=== PATIENT | female | born 1940 | race Caucasian/White ===

== ENCOUNTER → 2017-11-07 06:40 | Outpatient (CLI) | payer MEDICARE, SELFPAY ==
[2017-11-07 07:32] LABS: Absolute Lymphocyte Count 1.11 X10^3/ul (0.83-4.51); Basophil# 0.04 X10^3/uL; Eosinophil# 0.27 X10^3/uL; Eosinophils% 6.8 % (0-5); Hematocrit 41.2 % (37-47); Hemoglobin 13.4 g/dl (12.0-15.0); Lymphocyte # 1.11 X10^3/ul (4.0); Lymphocyte % 27.9 % (19-41); Mean Corp Hgb Conc 32.5 g/gl (32-36); Mean Corpuscular Volume 98.3 fL (81-99); Mean Platelet Vol. 11.3 fl (6.2-12.0); Monocyte# 0.56 X10^3/uL; Monocyte% 14.1 % (0-10); Neutrophil % 50.2 % (47-70); Platelet Count 157 K/mm3 (150-450); RBC Distribution Width CV 14.4 % (11.6-14.6); RBC Distribution Width SD 50.4 fl (35.1-43.9); Red Blood Count 4.19 M/mm3 (4.2-5.4)
[2017-11-07 07:34] LABS: POSITIVE COUNT NO; POSITIVE DIFFERENTIAL NO; POSITIVE MORPHOLOGY NO
[2017-11-07 07:46] LABS: Cholesterol 160 mg/dL (200); High Density Lipoprotein 43 mg/dL; Triglycerides 281 mg/dL; Very Low Density Lipoprotein 56 mg/dL (5-40)
--- NOTE | 2017-11-07 11:00 | ECHOD_ITS ---
Reason For Study: SOB Procedure This was a 2D Doppler, Color Flow transthoracic echocardiogram. Exam performed in department. Left Ventricle Normal LV size. Left ventricular systolic function is normal. The estimated ejection fraction is 60 %. No regional wall motion abnormalities noted. Right Ventricle Normal RV size. Normal systolic function. Atria Normal left atrium. Normal right atrium. Mitral Valve Normal mitral valve. Mild (1+) eccentric mitral valve insufficiency. Tricuspid Valve Normal tricuspid valve. Mild (1+) tricuspid valve insufficiency. Pulmonary artery systolic pressure is 33 mmHg. Aortic Valve Normal aortic valve. Trisinus/trileaflet aortic valve. Mild (1+) eccentric aortic valve insufficiency. Pulmonic Valve Normal pulmonic valve. Great Vessels Normal aortic root. The pulmonary artery is normal size. Normal inferior vena cava. Pericardium/Pleural No pericardial effusion. MMode/2D Measurements & Calculations LVIDd: 3.7 cm IVSd: 1.1 cm Ao root diam: 2.7 cm LVIDs: 2.2 cm LVPWd: 1.0 cm LA dimension: 3.8 cm RVDd: 2.6 cm FS: 41.0 % LAV(MOD-bp): 46.6 ml LA A4 area: 15.3 cm2 RA A4 area: 12.1 cm2 LAV(MOD-bp) Indexed: 26.6 ml/m2 LAV(MOD-sp2): 48.0 ml LAV(MOD-sp4): 41.5 ml Doppler Measurements & Calculations MV E max ajith: 76.4 cm/sec Ao V2 max: 156.5 cm/sec AI max ajith: 508.5 cm/sec MV A max ajith: 74.3 cm/sec Ao max P.8 mmHg AI max P.5 mmHg MV E/A: 1.0 AI dec slope: 315.8 cm/sec2 AI P1/2t: 471.7 msec LV V1 max: 111.7 cm/sec PA V2 max: 78.2 cm/sec TR max ajith: 261.2 cm/sec LV V1 max P.0 mmHg TR max P.3 mmHg Interpretation Summary Normal LV size. Left ventricular systolic function is normal. The estimated ejection fraction is 60 %. Mild (1+) eccentric mitral valve insufficiency. Mild (1+) tricuspid valve insufficiency. Ordering Physician: Celestine Pereyra Referring Physician: Raghav Torres M.D. Performed By: Monique Kenny RDCS
--- NOTE | 2017-11-07 11:00 | STRESSREP ---
Stress Test Report Exercise myocardial perfusion stress test. 77-year-old lady with a history of chest pain. Stress protocol: Resting EKG demonstrates normal sinus rhythm with a rate of 63 bpm. Normal intervals noted. The resting blood pressure is 142/78 mmHg. The patient exercised according to the regular Alvaro protocol for total duration of 6 minutes completing stage II of the Alvaro protocol. The maximum heart rate attained was 122 bpm which was 84% of the maximum predicted heart rate the maximum workload attained was 7 metabolic equivalents. The patient was noted to be in sinus rhythm throughout. At rest there were no ST or T-wave changes noted to suggest ischemia and at peak exercise no ST or T-wave changes were noted suggest ischemia. No chest pain was noted the test was terminated due to shortness of breath and fatigue. The resting blood pressure was 142/78 with a peak blood pressure 164 102. Myocardial perfusion protocol. 4 mCi of technetium 99m sestamibi was injected at rest. The patient exercised for 6 minutes attaining 7 metabolic equivalents and at peak exercise 32.1 mCi of technetium 99m sestamibi was injected. Stress images were obtained. Stress and rest images were reconstructed and compared in the short axis vertical long and horizontal long axis. Gated images were also obtained. Perfusion SPECT analysis: Review of the stress images demonstrate normal uptake of tracer noted in all areas of the myocardium. The resting images similarly demonstrate normal uptake of tracer noted in all areas of the myocardium. No areas of reversibility are noted suggest ischemia. No previous infarct is noted. Gated SPECT analysis: The gated ejection fraction is noted to be 76%. Conclusion: Normal exercise myocardial perfusion stress test at a moderate workload. Preserved ejection fraction.
== END ==
PROVIDERS: Family Provider Internal Medicine; PCP Internal Medicine; Visit Provider Internal Medicine Cardiovascular Disease
DX: E78.00 Pure hypercholesterolemia, unspecified (principal); E78.5 Hyperlipidemia, unspecified; R94.31 Abnormal electrocardiogram [ECG] [EKG]; R06.09 Other forms of dyspnea
CPT/HCPCS: 36415; 78452; 80061; 85025; 93017; 93306; A9500; A4216

== ENCOUNTER → 2018-01-04 09:24 | Outpatient (CLI) | payer MEDICARE, SELFPAY ==
--- NOTE | 2018-01-04 09:27 | BI_ITS ---
MAMMOGRAPHY - BILATERAL SCREENING REASON FOR EXAM: Female, 77 years old. Routine annual screening examination. PERTINENT HISTORY: Non-contributory. TECHNIQUE: Digital bilateral breast eddy (3D mammographic acquisition) in the CC and MLO projections. 2-D mediolateral oblique (MLO) and craniocaudad (CC) views of both breasts were obtained. CAD: Full Field Digital Mammography with Computer Added Detection was performed. COMPARISON: Comparison is made with prior study dated December 14, 2016 and October 27, 2015. FINDINGS: Breast Composition: The breasts are heterogeneously dense, which may obscure small masses. There are no dominant masses or suspicious calcifications. No other significant abnormalities are identified. There has been no significant change since the prior study. BI/SCREENING MAMM (CAD), BILAT IMPRESSION: Stable bilateral screening mammogram. Yearly follow-up mammogram recommended. (A) ASSESSMENT CATEGORY: BIRADS Category 1: Negative. A letter regarding these results will be sent to the patient by the facility within 30 days. Approximately 10% of breast cancers are not detected by mammography. A normal mammogram should not delay biopsy of a clinically suspicious abnormality. [id number] Electronically Signed: Jey Bustillo MD at 11:04 EDT Tel [phone], Service support ,
== END ==
PROVIDERS: Family Provider Internal Medicine; PCP Internal Medicine; Visit Provider Obstetrics & Gynecology
DX: Z12.31 Encounter for screening mammogram for malignant neoplasm of breast (principal)
CPT/HCPCS: 77063; 77067

== ENCOUNTER → 2018-01-13 06:53 | Outpatient (CLI) | payer MEDICARE, SELFPAY ==
--- NOTE | 2018-01-13 14:55 | PFTCOMP ---
COMPLETE PULMONARY FUNCTION TEST INTERPRETATION Brief HPI: Patient is a 77 year old female, currently under the care of Tanya Meneses, who presents to [facility] for complete pulmonary function tests secondary to diagnosis of COPD. Respiratory therapist reports good effort and reproducible results. Interpretation: Forced expiration spirometry shows a mild large airways obstructive ventilatory defect with an FEV1 of 96% predicted. There is a significant bronchodilator response in FEV1 by ATS criteria. Spirograms are of good quality and plateau slowly, indicating slowly emptying areas of the lungs. The respiratory flow volume loop shows a normal pattern. Lung volumes by body plethysmography show a decreased total lung capacity at 4.16 L, 84% predicted. All other lung volumes are within normal limits. Diffusion capacity by carbon monoxide is normal at 72% predicted. The airway resistance is normal. No previous pulmonary function tests were available for review. Impression: Fully reversible mild large airways obstructive ventilatory defect consistent with the diagnosis of asthma.
--- NOTE | 2018-01-13 14:58 | PFTCOMP_ITS ---
COMPLETE PULMONARY FUNCTION TEST INTERPRETATION Brief HPI: Patient is a 77 year old female, currently under the care of Tanya Meneses, who presents to [facility] for complete pulmonary function tests secondary to diagnosis of COPD. Respiratory therapist reports good effort and reproducible results. Interpretation: Forced expiration spirometry shows a mild large airways obstructive ventilatory defect with an FEV1 of 96% predicted. There is a significant bronchodilator response in FEV1 by ATS criteria. Spirograms are of good quality and plateau slowly, indicating slowly emptying areas of the lungs. The respiratory flow volume loop shows a normal pattern. Lung volumes by body plethysmography show a decreased total lung capacity at 4.16 L, 84% predicted. All other lung volumes are within normal limits. Diffusion capacity by carbon monoxide is normal at 72% predicted. The airway resistance is normal. No previous pulmonary function tests were available for review. Impression: Fully reversible mild large airways obstructive ventilatory defect consistent with the diagnosis of asthma.
== END ==
PROVIDERS: Family Provider Internal Medicine; PCP Internal Medicine; Visit Provider Physician Assistant Medical
DX: R06.09 Other forms of dyspnea (principal)
CPT/HCPCS: 94060; 94726; 94729

== ENCOUNTER 2018-03-09 03:08 | Emergency (ER) | payer MEDICARE, SELFPAY ==
[2018-03-09 03:09] VITALS: BP 148/73; PULSE 68; RESP 16; TEMP 36.8; O2SAT 98; BMI 29.5
--- NOTE | 2018-03-09 03:28 | CT_ITS ---
STUDY: CT CERVICAL SPINE WITHOUT CONTRAST REASON FOR EXAM: Female, 77 years old. Fall RADIATION DOSAGE (If Supplied By Facility): CTDIvol = ( 18.54 ) mGy, DLP = ( 362.18 ) mGycm TECHNIQUE: High resolution transaxial imaging was performed without contrast material. Sagittal and coronal images were reconstructed. Individualized dose optimization techniques were used for this CT. COMPARISON: None FINDINGS: Normal craniovertebral junction. Degenerative changes are present involving the atlantoaxial axial articulation. Normal odontoid process. Normal cervical lordosis. Normal vertebral bodies and posterior osseous elements. Diffuse degenerative disease is present. No acute fractures or dislocations are seen. Carotid calcifications. CT/Spine Cervical without Contras IMPRESSION: No acute osseous injury is evident. Comment: MRI is more sensitive than CT in detecting cord injury, ligament injury, and epidural hematoma. If there is continued clinical concern for any of these entities, MRI correlation should be considered if possible. Electronically Signed: Primitivo Ruiz MD at 4:07 EDT Tel , Service support ,
--- NOTE | 2018-03-09 03:28 | RAD_ITS ---
STUDY: X-RAY - RIGHT RADIUS AND ULNA REASON FOR EXAM: Female, 77 years old. Fall TECHNIQUE: 2 view(s) of the forearm. COMPARISON: None. FINDINGS: Comminuted intra-articular fracture of the distal radius. Fracture of the ulnar styloid. Fracture of the distal ulnar diaphysis. Soft tissue swelling. RAD/Forearm 2 Views IMPRESSION: Comminuted intra-articular fracture of the distal radius. Fracture of the ulnar styloid. Fracture of the distal ulnar diaphysis. Electronically Signed: Primitivo Ruiz MD at 4:31 EDT Tel , Service support ,
--- NOTE | 2018-03-09 03:28 | CT_ITS ---
STUDY: CT BRAIN WITHOUT CONTRAST REASON FOR EXAM: Female, 77 years old. Fall RADIATION DOSAGE (If Supplied By Facility): CTDIvol = ( 44.99 ) mGy, DLP = ( 779.24 ) mGycm TECHNIQUE: Transaxial CT imaging of the brain was performed without administration of intravenous contrast material. Individualized dose optimization techniques were used for this CT. COMPARISON: None. FINDINGS: Normal soft tissue structures. There is hyperostosis frontalis internus. Normal size ventricles and extra-axial spaces for the patient's age. There are areas of decreased attenuation within the white matter tracts of the supratentorial brain, consistent with microvascular disease changes. There are small punctate calcifications of the basal ganglia which are seen in the aging brain as a normal variant. Normal brainstem. Normal cerebellum. There is no intracranial hemorrhage. There are no findings of an acute ischemic infarction. Normal visualized paranasal sinuses. CT/Brain/Head without Contrast IMPRESSION: No fracture or hemorrhage. Electronically Signed: Primitivo Ruiz MD at 4:06 EDT Tel , Service support ,
--- NOTE | 2018-03-09 03:28 | RAD_ITS ---
STUDY: X-RAY - RIGHT WRIST REASON FOR EXAM: Female, 77 years old. Fall TECHNIQUE: 3 view(s) of the wrist were obtained. COMPARISON: None. FINDINGS: Comminuted intra-articular fracture of the distal radius. Fracture of the ulnar styloid. Fracture of the distal ulnar diaphysis. Carpal rows are normally aligned. Soft tissue swelling. RAD/Wrist min 3 Views IMPRESSION: Comminuted intra-articular fracture of the distal radius. Fracture of the ulnar styloid. Fracture of the distal ulnar diaphysis. Electronically Signed: Primitivo Ruiz MD at 4:38 EDT Tel , Service support ,
--- NOTE | 2018-03-09 03:29 | RAD_ITS ---
STUDY: X-RAY - LEFT FOOT CLINICAL: Female, 77 years old. Fall TECHNIQUE: 3 view(s) of the foot. COMPARISON: None. FINDINGS: Normal talus, calcaneus, and tarsal bones. Normal visualized subtalar, talonavicular, calcaneocuboid, tarsal and tarsometatarsal articulations. Normal metatarsi. There is degenerative arthrosis of the metatarsophalangeal joint of the hallux . Normal tibial and fibular sesamoid bones. Normal interphalangeal joint of the great toe. Normal phalanges of the great toe. Normal second through fifth metatarsophalangeal joints. Normal interphalangeal joints and phalanges of the lesser toes. The soft tissue structures are unremarkable. RAD/Foot min 3 Views IMPRESSION: No acute osseous injury is evident. Electronically Signed: Primitivo Ruiz MD at 4:32 EDT Tel , Service support ,
--- NOTE | 2018-03-09 03:30 | ED.VISSUMM ---
- ER Visit Summary Date of Service: 03/09/18 Chief Complaint: Fall History of Present Illness: The patient is a 77 F who presents with injuries after a fall. Patient states that she got up from bed and thought she was going to the bathroom, but she thinks she was dreaming because she thought she was in a store. She walked to a staircase and fell down the stairs. She and are unsure if she fell down the entire flight, but it is 11 steps long. Patient is complaining of right wrist pain, left hand pain, left foot pain, and right ankle pain. She denies any headache, head injury, neck pain, or acute back pain. She states she has chronic back pain due to fibromyalgia and rheumatoid arthritis. She denies chest pain, shortness of breath, abdominal pain, lightheadedness, dizziness. She states she had no difficulty ambulating. She takes 2 baby aspirin daily. Physical Examination: Vital signs: afebrile, hemodynamically stable, no hypoxia on room air General: well nourished, well developed, in no distress Skin: warm, dry, no rash, no pallor HEENT: normocephalic and atraumatic; no scalp contusions, hematomas, lacerations noted, no maxillofacial trauma noted. PERRL, EOMI, moist mucous membranes Cardiovascular: regular rate and rhythm without murmurs, no peripheral edema, 2+ pulses all distal extremities. No chest wall tenderness. Respiratory: No increased work of breathing, lungs are clear to auscultation bilaterally, no rales, rhonchi or wheezing Abdominal: Abdomen is soft, nontender with normoactive bowel sounds, no guarding or rebound, no masses Back: No midline tenderness deformities or step-offs. MSK: This is stable and nontender. No hip pain, no pain with logroll of the hips. Flexion and extension of knees intact. Obvious deformity to the right wrist. Radial pulse intact. Patient able to wiggle fingers. Distal sensation intact. Contusion over the third MCP joint on the hand. Patient has motor, sensation and pulses intact. Ecchymosis to the left second toe without deformity. Swelling and abrasion to the right lateral malleolus. Patient has full flexion, extension inversion and eversion of bilateral ankles. DP pulses are 2+ and symmetric. Neuro: Awake and alert, oriented ?4. No facial droop, sensation and motor function intact and symmetric Test Results: Clinical Impression(s) from Imaging Studies Brain CT 03/09/18 03:28 IMPRESSION: No fracture or hemorrhage. Electronically Signed: Primitivo Ruiz MD at 4:06 EDT Tel , Service support , Cervical Spine CT 03/09/18 03:28 IMPRESSION: No acute osseous injury is evident. Comment: MRI is more sensitive than CT in detecting cord injury, ligament injury, and epidural hematoma. If there is continued clinical concern for any of these entities, MRI correlation should be considered if possible. Electronically Signed: Primitivo Ruiz MD at 4:07 EDT Tel , Service support , Forearm X-Ray 03/09/18 03:28 IMPRESSION: Comminuted intra-articular fracture of the distal radius. Fracture of the ulnar styloid. Fracture of the distal ulnar diaphysis. Electronically Signed: Primitivo Ruiz MD at 4:31 EDT Tel , Service support , Wrist X-Ray 03/09/18 03:28 IMPRESSION: Comminuted intra-articular fracture of the distal radius. Fracture of the ulnar styloid. Fracture of the distal ulnar diaphysis. Electronically Signed: Primitivo Ruiz MD at 4:38 EDT Tel , Service support , Foot X-Ray 03/09/18 03:29 IMPRESSION: No acute osseous injury is evident. Electronically Signed: Primitivo Ruiz MD at 4:32 EDT Tel , Service support , Emergency Department Course and Treatment: Patient was given [place] for pain. Given her age and mechanism of injury, head CT and C-spine were performed. This showed no intracranial hemorrhage or fractures. X-rays were performed of the injured extremities. Patient has a comminuted distal radius fracture with intra-articular involvement and a distal ulnar diaphysis fracture. She declined the x-rays of the right ankle and the left hand, as she stated that she did not think they were fractured. A sugar tong splint was placed to immobilize the right distal forearm fracture. Hematoma block was placed with 12 cc of 1% lidocaine and good anesthesia was achieved. Gentle traction was placed to straighten out the fracture. It was then splinted. Afterwards patient had good cap refill, was able to wiggle her fingers and had sensation intact. Patient will follow up with her orthopedic doctor within the week. She was given a prescription for [place]. She was discharged home. Treatment Plan: [] Disposition: [] Impression: Right distal forearm fracture This note was generated with [employer] dictation software. It may contain incorrect words, spelling, and punctuation that were not noted in review of the chart prior to signing ED Disposition - Plan for ED Patient: Disposition: Home or Assisted Living Chief Complaint: Fall Instructions: ED Fx Forearm Radius Ulna No Redu Requ Prescriptions: Hydrocodone/Acetaminophen [[place] 5-325 Tablet] 1 - 2 ea PO 4X/DAY PRN PRN 5 Days #20 tab PRN Reason: Pain Referrals: Tio Granda DO [STAFF PHYSICIAN] - 3-5 Days Raghav Torres MD [Primary Care Provider] - Additional Instructions: Please keep your splint dry. Call today to make an appointment with the orthopedic doctor within 1 week. Use the [place] as needed for pain. You may also use Tylenol or ibuprofen for mild to moderate pain. If you have any severe pain not controlled with the medication, loss of sensation in your hand, change in color in your fingers, or any other concerns about the splint or arm, please return immediately to the emergency department for another evaluation.
--- NOTE | 2018-03-09 03:35 | ED.DCSUM_ITS ---
- ER Visit Summary Date of Service: 03/09/18 Chief Complaint: Fall History of Present Illness: The patient is a 77 F who presents with injuries after a fall. Patient states that she got up from bed and thought she was going to the bathroom, but she thinks she was dreaming because she thought she was in a store. She walked to a staircase and fell down the stairs. She and are unsure if she fell down the entire flight, but it is 11 steps long. Patient is complaining of right wrist pain, left hand pain, left foot pain, and right ankle pain. She denies any headache, head injury, neck pain, or acute back pain. She states she has chronic back pain due to fibromyalgia and rheumatoid arthritis. She denies chest pain, shortness of breath, abdominal pain, lightheadedness, dizziness. She states she had no difficulty ambulating. She takes 2 baby aspirin daily. Physical Examination: Vital signs: afebrile, hemodynamically stable, no hypoxia on room air General: well nourished, well developed, in no distress Skin: warm, dry, no rash, no pallor HEENT: normocephalic and atraumatic; no scalp contusions, hematomas, lacerations noted, no maxillofacial trauma noted. PERRL, EOMI, moist mucous membranes Cardiovascular: regular rate and rhythm without murmurs, no peripheral edema, 2 + pulses all distal extremities. No chest wall tenderness. Respiratory: No increased work of breathing, lungs are clear to auscultation bilaterally, no rales, rhonchi or wheezing Abdominal: Abdomen is soft, nontender with normoactive bowel sounds, no guarding or rebound, no masses Back: No midline tenderness deformities or step-offs. MSK: This is stable and nontender. No hip pain, no pain with logroll of the hips. Flexion and extension of knees intact. Obvious deformity to the right wrist. Radial pulse intact. Patient able to wiggle fingers. Distal sensation intact. Contusion over the third MCP joint on the hand. Patient has motor, sensation and pulses intact. Ecchymosis to the left second toe without deformity. Swelling and abrasion to the right lateral malleolus. Patient has full flexion, extension inversion and eversion of bilateral ankles. DP pulses are 2+ and symmetric. Neuro: Awake and alert, oriented ?4. No facial droop, sensation and motor function intact and symmetric Test Results: Clinical Impression(s) from Imaging Studies Brain CT 03/09/18 03:28 IMPRESSION: No fracture or hemorrhage. Electronically Signed: Primitivo Ruiz MD at 4:06 EDT Tel , Service support , Cervical Spine CT 03/09/18 03:28 IMPRESSION: No acute osseous injury is evident. Comment: MRI is more sensitive than CT in detecting cord injury, ligament injury, and epidural hematoma. If there is continued clinical concern for any of these entities, MRI correlation should be considered if possible. Electronically Signed: Primitivo Ruiz MD at 4:07 EDT Tel , Service support , Forearm X-Ray 03/09/18 03:28 IMPRESSION: Comminuted intra-articular fracture of the distal radius. Fracture of the ulnar styloid. Fracture of the distal ulnar diaphysis. Electronically Signed: Primitivo Ruiz MD at 4:31 EDT Tel , Service support , Wrist X-Ray 03/09/18 03:28 IMPRESSION: Comminuted intra-articular fracture of the distal radius. Fracture of the ulnar styloid. Fracture of the distal ulnar diaphysis. Electronically Signed: Primitivo Ruiz MD at 4:38 EDT Tel , Service support , Foot X-Ray 03/09/18 03:29 IMPRESSION: No acute osseous injury is evident. Electronically Signed: Primitivo Ruiz MD at 4:32 EDT Tel , Service support , Emergency Department Course and Treatment: Patient was given [place] for pain. Given her age and mechanism of injury, head CT and C-spine were performed. This showed no intracranial hemorrhage or fractures. X-rays were performed of the injured extremities. Patient has a comminuted distal radius fracture with intra-articular involvement and a distal ulnar diaphysis fracture. She declined the x-rays of the right ankle and the left hand, as she stated that she did not think they were fractured. A sugar tong splint was placed to immobilize the right distal forearm fracture. Hematoma block was placed with 12 cc of 1% lidocaine and good anesthesia was achieved. Gentle traction was placed to straighten out the fracture. It was then splinted. Afterwards patient had good cap refill, was able to wiggle her fingers and had sensation intact. Patient will follow up with her orthopedic doctor within the week. She was given a prescription for [place]. She was discharged home. Treatment Plan: [] Disposition: [] Impression: Right distal forearm fracture This note was generated with [employer] dictation software. It may contain incorrect words, spelling, and punctuation that were not noted in review of the chart prior to signing ED Disposition - Plan for ED Patient: Disposition: Home or Assisted Living Chief Complaint: Fall Instructions: ED Fx Forearm Radius Ulna No Redu Requ Prescriptions: Hydrocodone/Acetaminophen [[place] 5-325 Tablet] 1 - 2 ea PO 4X/DAY PRN PRN 5 Days #20 tab PRN Reason: Pain Referrals: Tio Granda DO [STAFF PHYSICIAN] - 3-5 Days Raghav Torres MD [Primary Care Provider] - Additional Instructions: Please keep your splint dry. Call today to make an appointment with the orthopedic doctor within 1 week. Use the [place] as needed for pain. You may also use Tylenol or ibuprofen for mild to moderate pain. If you have any severe pain not controlled with the medication, loss of sensation in your hand, change in color in your fingers, or any other concerns about the splint or arm, please return immediately to the emergency department for another evaluation.
[2018-03-09] MEDS: HYDROcodone Bitartrate/Apap 5/325 Tablet PO (04:10)
--- NOTE | 2018-03-09 06:53 | DCINST.ED_ITS ---
ED Disposition - Plan for ED Patient: Disposition: Home or Assisted Living Chief Complaint: Fall Instructions: ED Fx Forearm Radius Ulna No Redu Requ Prescriptions: Hydrocodone/Acetaminophen [[place] 5-325 Tablet] 1 - 2 ea PO 4X/DAY PRN PRN 5 Days #20 tab PRN Reason: Pain Referrals: Raghav Torres MD [Primary Care Provider] - Tio Granda DO [STAFF PHYSICIAN] - 3-5 Days Additional Instructions: Please keep your splint dry. Call today to make an appointment with the orthopedic doctor within 1 week. Use the [place] as needed for pain. You may also use Tylenol or ibuprofen for mild to moderate pain. If you have any severe pain not controlled with the medication, loss of sensation in your hand, change in color in your fingers, or any other concerns about the splint or arm, please return immediately to the emergency department for another evaluation.
[2018-03-09 07:22] VITALS: BP 116/50; PULSE 68; RESP 18; O2SAT 97
== END 2018-03-09 07:23 | disposition home or self-care (01) ==
PROVIDERS: Emergency Provider Emergency Medicine; Family Provider Internal Medicine; PCP Internal Medicine
DX: S52.571A Other intraarticular fracture of lower end of right radius, initial encounter for closed fracture (principal); S52.611A Displaced fracture of right ulna styloid process, initial encounter for closed fracture; S93.505A Unspecified sprain of left lesser toe(s), initial encounter; W10.8XXA Fall (on) (from) other stairs and steps, initial encounter; Y93.01 Activity, walking, marching and hiking; Y92.009 Unspecified place in unspecified non-institutional (private) residence as the place of occurrence of the external cause; M79.672 Pain in left foot; M79.7 Fibromyalgia; M45.9 Ankylosing spondylitis of unspecified sites in spine; I10 Essential (primary) hypertension; J45.909 Unspecified asthma, uncomplicated; K58.9 Irritable bowel syndrome, unspecified; G89.29 Other chronic pain; Z79.82 Long term (current) use of aspirin; Z79.899 Other long term (current) drug therapy
CPT/HCPCS: 25605; 70450; 72125; 73090; 73110; 73630; 99283

== ENCOUNTER → 2018-03-14 15:20 | Outpatient (CLI) | payer MEDICARE, SELFPAY ==
[2018-03-14 17:56] LABS: Hematocrit 37.3 % (37-47); Hemoglobin 11.8 g/dl (12.0-15.0); Mean Corp Hgb Conc 31.6 g/gl (32-36); Mean Corpuscular Hgb 31.1 pg (27.0-32.0); Mean Corpuscular Volume 98.2 fL (81-99); Mean Platelet Vol. 11.2 fl (6.2-12.0); Platelet Count 174 K/mm3 (150-450); RBC Distribution Width CV 14.4 % (11.6-14.6); RBC Distribution Width SD 51.6 fl (35.1-43.9); White Blood Count 4.6 K/mm3 (4.4-11.0)
[2018-03-14 18:04] LABS: Scan Indicated on CBC? Y/N NO
[2018-03-14 18:30] LABS: Anion Gap 7 (5-15); BUN 26 mg/dL (7-18); BUN/Creat Ratio 40.8 RATIO (10-20); Calcium,Total 8.8 mg/dL (8.5-10.1); Chloride 109 mmol/L (98-107); Creatinine, Serum 0.64 mg/dL (0.55-1.02); EST Glomerular Filtration Rate 96 mL/min (>60); Est Glom Filt Rate - Afr Amer 117 mL/min (>60); Glucose 137 mg/dL (74-106); Sodium Level 144 mmol/L (136-145)
== END ==
PROVIDERS: Family Provider Internal Medicine; PCP Internal Medicine; Visit Provider Physician Assistant
DX: Z01.818 Encounter for other preprocedural examination (principal)
CPT/HCPCS: 36415; 80048; 85027

== ENCOUNTER 2018-04-10 14:37 | Emergency (ER) | payer MEDICARE, SELFPAY ==
[2018-04-10 14:38] VITALS: BP 154/55; PULSE 69; RESP 16; TEMP 36.6; O2SAT 95; BMI 26.0
--- NOTE | 2018-04-10 15:49 | ED.DCSUM_ITS ---
- ER Visit Summary Date of Service: 04/10/18 Chief Complaint: Right leg pain/sciatica History of Present Illness: The patient is a 78 F who presents with right leg pain. She states she has a history of sciatica. This pains involving her for 2 weeks. It sharp. She has been taking Tylenol arthritis with hydrocodone but this is not helping. She also took a prednisone pack but it did not help. She does have some back pain intermittently. No injuries or falls. Physical Examination: Vital signs reviewed. HEENT exam unremarkable. Right leg exam reveals tenderness to the posterior hip, thigh and leg. No erythema. No swelling. She has full range of motion with pain. Neurologic exam is normal. Test Results: None performed Emergency Department Course and Treatment: Patient was given morphine and Kenalog. She feels much better. She will be discharged with a prednisone pack to help with her pain. She will continue her [place] at home. Treatment Plan: [] Disposition: Discharge Impression: Sciatica This note was generated with [employer] dictation software. It may contain incorrect words, spelling, and punctuation that were not noted in review of the chart prior to signing ED Disposition - Plan for ED Patient: Chief Complaint: Lower Extremity Injury Referrals: Raghav Torres MD [Primary Care Provider] -
[2018-04-10] MEDS: Triamcinolone Acetonide 40 MG/ML Vial IM (16:17)
[2018-04-10] MEDS: morphine 8 MG/ML Syringe SC (16:17)
--- NOTE | 2018-04-10 16:43 | ED.DEP ---
ED Disposition - Plan for ED Patient: Disposition: Home or Assisted Living Chief Complaint: Lower Extremity Injury Instructions: ED Sciatica Prescriptions: Prednisone [Deltasone] 40 mg PO DAILY #14 tab Referrals: Raghav Torres MD [Primary Care Provider] -
== END 2018-04-10 16:52 | disposition home or self-care (01) ==
PROVIDERS: Emergency Provider Emergency Medicine; Family Provider Internal Medicine; PCP Internal Medicine
DX: M54.31 Sciatica, right side (principal); I10 Essential (primary) hypertension; M79.7 Fibromyalgia; M06.9 Rheumatoid arthritis, unspecified; Z79.82 Long term (current) use of aspirin; Z79.899 Other long term (current) drug therapy
CPT/HCPCS: 96372; 99282

== ENCOUNTER 2018-06-13 09:30 | Outpatient (RCR) | payer MEDICARE, SELFPAY ==
--- NOTE | 2018-04-17 17:24 | HP.OTEVAL ---
Patient's Visit Information PIERRE MELENDEZ is a 78 year old F, referred to Occupational Therapy by Thong Marrero DO, with a diagnosis of Radial fx and Ulnar displacement. Date of Evaluation: 04/17/18 Occupational Therapist: Mirta Holland - Subjective Subjective: Pt., Leida, arrived and noted fell down 14 steps at home ending in radiaus fx. She noted fall was in mid February around . Pins removed last and was placed in wrist cock up follow ing removal of cast. Noted injury occured while sleep walking. - Pain Right Wrist 0 Pain Intensity Range: 0, 3, 4 - Objective Objective/Observation: Ink still over R wrist, protecting. Limited ROM, strength, and movement of R wrist and hand. Sensation appears intact. Decreased dexterity and fx pinch patterns. Muscle atrophy present t/o R forearm and hand. Slight bowing of Ulna noted. - ROM Forearm: supination R 0-46, L 0-83 Wrist: flex R 0-33, L 0-81; ext R 0-16, L 0-50 MP: WFL PIP: WFL DIP: WFL - Strength Physician Assistant Psychiatry: R 5, L 40 Lateral Pinch: R 6, L 12 Tripod Pinch: R 5, L 12 Tip-to-Tip Pinch: R 4, L 10 - Sensation Sensation Comments: Sensation WFL. WIll be monitored for changes. - In-Hand Manipulation Finger to Palm Translation: Severe - Right, Mild - Left Palm to Finger Translation: Moderate - Right, Mild - Left Shift: Mild - Right, Normal - Left Rotation: Mild - Right, Normal - Left - DASH-Disabilities of Arm, Shoulder& Hand DASH Sum: 107 - Goals Goal:: Leida to increased R meat carver strength by 20 lbs to increased strength need to manipulate self care items by d/c. - Rehabilitation General Assessment: Leida arrived for OT evaluation on this date. OT will focus on R wrist and hand s/p inartic fx low end radius with displacement of R ulnar styloid. Both fx closed healing with pins added for stability and removed Tuesday. She will be out of town starting tuesday for next 5 days. PT order in process for additional therapy on sciatica. OT to focus on R wrist and hand to promote increased ROM, strength, as well as increased fx use fo dominant R hand for ADl/IADls. Rehabilitation Potential: Good - Anticipated Interventions Anticipated Interventions: A/AAROM/PROM, Strengthening, Scar Care, Wound Care, Modalities, Orthoses, Joint Protection/Energy Conservation, Ergonomic Education, Fine Motor Coord/Adriano, ADL Training, Caregiver Training, Home Program - Visit Plan Frequency: 2x /Week Duration: 4-6 Weeks TEXT: Thank you for the opportunity to evaluate your patient. For Medicare and Medicare HMO plans, please review the plan of care and approve it. It will need to be FAXED BACK to us at [phone] for Medicare purposes. Please let me know if there are questions or concerns regarding this plan of care. Physician Signature: Date:
--- NOTE | 2018-04-18 08:10 | HP.OTEVAL_ITS ---
Patient's Visit Information PIERRE MELENDEZ is a 78 year old F, referred to Occupational Therapy by Thong Marrero DO, with a diagnosis of Radial fx and Ulnar displacement. Date of Evaluation: 04/17/18 Occupational Therapist: Mirta Holland - Subjective Subjective: Pt., Leida, arrived and noted fell down 14 steps at home ending in radius fx. She noted fall was in mid -February around . Pins removed last Tuesday and was placed in wrist cock up following removal of cast. Noted injury occurred while sleep walking. - Pain Right Wrist 0 Pain Intensity Range: 0, 3, 4 - Objective Objective/Observation: Surgical ink still over R wrist, protecting. Limited ROM , strength, and movement of R wrist and hand. Sensation appears intact. Decreased dexterity and fx pinch patterns. Muscle atrophy present t/o R forearm and hand. Slight bowing of Ulna noted. - ROM Forearm: supination R 0-46, L 0-83 Wrist: flex R 0-33, L 0-81; ext R 0-16, L 0-50 MP: WFL PIP: WFL DIP: WFL - Strength Meeting/Event Planner: R 5, L 40 Lateral Pinch: R 6, L 12 Tripod Pinch: R 5, L 12 Tip-to-Tip Pinch: R 4, L 10 - Sensation Sensation Comments: Sensation WFL. WIll be monitored for changes. - In-Hand Manipulation Finger to Palm Translation: Severe - Right, Mild - Left Palm to Finger Translation: Moderate - Right, Mild - Left Shift: Mild - Right, Normal - Left Rotation: Mild - Right, Normal - Left - DASH-Disabilities of Arm, Shoulder& Hand DASH Sum: 107 - Goals Goal:: Leida to increased R terminal manager strength by 20 lbs to increased strength need to manipulate self care items by d/c. Goal:: Leida to increase R wrist ROM by 5-10 degrees to promote increased mobility of R wrist in pain free range for ADL/IADls by d/c. Goal:: Leida to have no more 1/10 pain with ADL/IADls 4/5 trials 80% of the time to promote increased participation and ability to return to PLOF. Goal:: Leida to be mod I to complete joint protection techniques and body mechanics to promote increased alignment of body 4/5 trials 80% of the time by d /c. Goal:: Leida to be (I) to complete all fx movements needed for self-care and other function tasks e.g. supination to get change 2/3 trials 75% of the time to promote increased ROM and ability to return to PLOF by d/c. - Rehabilitation General Assessment: Leida arrived for OT evaluation on this date. OT will focus on R wrist and hand s/p inartic fx of low end of radius with displacement of R ulnar styloid. Both fx closed healing with pins added for stability and removed Tuesday. She will be out of town starting Tuesday for next 5 days. PT order in process for additional therapy on sciatica. OT to focus on R wrist and hand to promote increased ROM, strength, as well as increased fx use of dominant R hand for ADl/IADls. Rehabilitation Potential: Good - Anticipated Interventions Anticipated Interventions: A/AAROM/PROM, Strengthening, Scar Care, Wound Care, Modalities, Orthoses, Joint Protection/Energy Conservation, Ergonomic Education , Fine Motor Coord/Adriano, ADL Training, Caregiver Training, Home Program - Visit Plan Frequency: 2x /Week Duration: 4-6 Weeks General Plan: Leida to receive OT services for R wrist and hand ROM, strength, and dexterity need for self-care and fx activities to promote returning to PLOF. PT order to follow as well a evaluation to treat sciatica. TEXT: Thank you for the opportunity to evaluate your patient. For Medicare and Medicare HMO plans, please review the plan of care and approve it. It will need to be FAXED BACK to us at [phone] for Medicare purposes. Please let me know if there are questions or concerns regarding this plan of care. Physician Signature: Date:
--- NOTE | 2018-04-26 11:29 | HP.PTEVAL_ITS ---
Patient's Visit Information PIERRE MELENDEZ is a 78 year old F referred to Physical Therapy by Thong Marrero DO with a diagnosis of R sided sciatica. Date of Evaluation: 04/24/18 Physical Therapist: Thong Fernandes - Visit Plan Frequency: 2x /Week Duration: 4 Weeks Plan: Start with US to R piriformis and SI region, HS stretching, light lumbar ROM as tolerated, trial extension first. If not tolerating stay with neutral spine strenghtening. - Subjective Subjective: Pt. is here today for her initial evaluation with diagnosis of R sided sciatica. Pt. reports falling ~6 weeks ago while sleeping walking. She ended up falling down a flight of stairs. She ended up having a R radius and ulnar fx. She had an ORIF on her R arm, but she is now experiencing increased R sided lumbar spine and leg pain. Pt. reports increased pain with sitting, walking, standing, lifting, bending, twisting. Pt. reports having mild relief with medications, but not much. Pt. reports having xrays rulingout fracture. Pt. did have injection at hospital which helped, but she contiunes to have increased pain. Pt. is hopeful to reduce symptoms in order to get back to all ADLs without limitations. - Pain R side of lumbar spine Pain Intensity (Out of 10): 6 Pain Intensity Range: 6, 10 - Objective POSTURE: Pt. has slight flexed posture, slight lateral lean to R side with slight hip lateral shift to L (away from pain). Pt. has normal iliac crest heights. PALPATION: Pt. has increasd tenderness to palpation of R piriformis, R lumbar erector spinea. Pt. has no tendernes throughout distal RLE. NEUROLOGICAL: all intact without issues. Pt. is able to rise on heels and toes without muscle weakness. ROM: LUMABR SPINE: flexion- full increase NW, extension mod loss tightness no radiating pain. SB min loss bilat increase NW , rotation mod loss bilat incerase nW. MMT- core strength- poor. RLE- ankle 5/ 5 throughout; knee- ext 4/5, flexion 4/5; hip - flexion 4-/5 increase NW, abd 4/ 5 NE, ext 4/5 NE. LLE- ankle 5/5 throughout; knee- ext 4/5, flexion 4/5; hip- flexion 4-/5 increase NE, abd 4/5 NE, ext 4/5 NE. GAIT: Pt. ambulates without AD, but has flexed posture, slight L atleral shift with trunk correction. No anatalgic pattern noted. STAIRS: Step to pattern with heavy use of uEs on HR. - Goals Goal 1:: Pt. to be I with HEP. Goal Time Frame: 4-6 Weeks Goal 2:: Pt. to have increased lumbar ROM without increase in symtoms by 25%. Goal Time Frame: 4-6 Weeks Goal 3:: Pt. to have 0-2/10 pain in R side of lumbar spine and RLE while at rest allowing for increased quality life. Goal Time Frame: 4-6 Weeks Goal 4:: Pt. to have increased core strength by 1/2 grade to reduce stress applied to lumabr spine. Goal Time Frame: 4-6 Weeks Goal 5:: Pt. to ambulate unlimited distances without increase in symptoms. Goal Time Frame: 4-6 Weeks - Rehabilitation Potential Physical Therapy Diagnosis: Pt. has signs and symptoms consistent with sciatica effecting her RLE. Pt. has decreased lumbar ROM with increased symptoms with flexion and ext at end ranges. Pt. would benefit from PT to increase lumbar ROM , increase core stability and decerased symptoms. Rehabilitation Potential: Fair - Anticipated Interventions Patient/Client Instruction: Educate patient on: Condition, Plan of Care, Risk Factors, Benefits of Fitness Program For the Purpose of:: To improve health and function, To foster healthy habits, To improve decision making, To facilitate caregiver knowledge, To improve self management, To prevent re-injury, To improve ability to perform tasks related to life management, To improve tolerance to ADL's Therapeutic Exercise to Include: Strength training, Power training, Postural training, Flexibilty training, Passive ROM, Active ROM, Dynamic Lumbar Stabilization, Sadie Exercises For the Purpose of:: To decrease pain, To increase ROM, To improve nutrient delivery to tissue, To increase oxygenation perfusion, To improve muscle performance and motor function, To improve performance and independence with ADL 's, To improve ability of physical actions for home/community/work/leisure, To improve gait and locomotor functions, To improve health of tissue, To decrease soft tissue restriction, To increase flexibility/ROM, To improve balance Manual Therapy Techniques to Include: Mobilization, Passive ROM, Functional dry needling, Soft tissue mobilization For the Purpose of:: To decrease pain, To increase ROM, To improve nutrient delivery to tissue, To increase oxygenation perfusion, To improve muscle performance and motor function, To improve ability to perform ADL's Cryotherapy (ice pack, ice massage): Yes Thermo therapy (hot pack): Yes Ultrasound (thermal/non thermal): Yes Pelvic traction supine: Yes For the Purpose of:: To decrease pain, To increase ROM, To improve nutrient delivery to tissue, To increase oxygenation perfusion Thank you for the opportunity to evaluate your patient. For Medicare and Medicare HMO plans, please review the plan of care and approve it. It will need to be FAXED BACK to us at [phone] for Medicare purposes. Please let me know if there are questions or concerns regarding this plan of care. Physician Signature: Date:
--- NOTE | 2018-05-10 10:50 | HP.PTREVAL ---
Thong Marrero, DO, It has been my pleasure to treat PIERRE MELENDEZ over the last 6 visits for R sided sciatica. Please see the progress note below for an update on the physical therapy plan of care! Subjective: Pt. continues to report minimal changes with PT. Pt. is to follow up with physician tomorrow. Pt. reports having 8/10 R leg and hip pain this date. Objective/Function: Pt. reports mild relief with PT this date. Pt. is to follow up with physician tomorrow. Pt. reports overall minimal changes in pain. She continues to reports increased pain with all positions including: lying, sitting, standing, walking. Pt. reports no positions of comfort and only relief is with pain medications. Plan Plan: Pt. to follow up with physician in order to determine best course of action as this point in time. Goals Goal 1:: Pt. to be I with HEP. Goal Time Frame: 4-6 Weeks Goal Progress: Progressing Goal 2:: Pt. to have increased lumbar ROM without increase in symtoms by 25%. Goal Time Frame: 4-6 Weeks Goal Progress: Not Progressing Goal 3:: Pt. to have 0-2/10 pain in R side of lumbar spine and RLE while at rest allowing for increased quality life. Goal Time Frame: 2-4 Weeks Goal Progress: Not Progressing Goal 4:: Pt. to have increased core strength by 1/2 grade to reduce stress applied to lumabr spine. Goal Time Frame: 4-6 Weeks Goal Progress: Progressing Goal 5:: Pt. to ambulate unlimited distances without increase in symptoms. Goal Time Frame: 4-6 Weeks Goal Progress: Not Progressing Anticipated Interventions Patient/Client Instruction: Educate patient on: Condition, Plan of Care, Risk Factors, Benefits of Fitness Program For the Purpose of:: To improve health and function, To foster healthy habits, To improve decision making, To facilitate caregiver knowledge, To improve self management, To prevent re-injury, To improve ability to perform tasks related to life management, To improve tolerance to ADL's Therapeutic Exercise to Include: Strength training, Power training, Postural training, Flexibilty training, Passive ROM, Active ROM, Dynamic Lumbar Stabilization, Sadie Exercises For the Purpose of:: To decrease pain, To increase ROM, To improve nutrient delivery to tissue, To increase oxygenation perfusion, To improve muscle performance and motor function, To improve performance and independence with ADL's, To improve ability of physical actions for home/community/work/leisure, To improve gait and locomotor functions, To improve health of tissue, To decrease soft tissue restriction, To increase flexibility/ROM, To improve balance Manual Therapy Techniques to Include: Mobilization, Passive ROM, Functional dry needling, Soft tissue mobilization For the Purpose of:: To decrease pain, To increase ROM, To improve nutrient delivery to tissue, To increase oxygenation perfusion, To improve muscle performance and motor function, To improve ability to perform ADL's Cryotherapy (ice pack, ice massage): Yes Thermo therapy (hot pack): Yes Ultrasound (thermal/non thermal): Yes Pelvic traction supine: Yes For the Purpose of:: To decrease pain, To increase ROM, To improve nutrient delivery to tissue, To increase oxygenation perfusion Please do not hesitate to contact me at [phone] by phone or if you have questions or concerns regarding this new plan of care! Sincerely, Thong Fernandes
--- NOTE | 2018-05-10 11:45 | HP.OTCOM ---
OT Communication Note 05/10/[address] Thong Marrero, Leida has been seen for a total of 7 OT visits. She reports variable pain per sessions and feels she has made approximately 20% improvement. Subjective improvement related to DASH answers she has indicated increased participation in ADls/IADLs from score of 107 or 60-79% disability to 67 of 20-39% disability. New measurements taken today. She has progressed in most measurements since time of initial evaluation of R wrist. ROM measurements are as follows: wrist flexion R 0-50, L WFL, ext R 0-33, L WFL; radial deviation R extremely limited, L WFL; ulnar dev R 0-19, L WFL; supination R 0-72, L WFL. Strength assessment completed on this date and measurements are as follows: robotic maintenance technician R 20, L 45; lateral pinch R 8, L 12; tripod R 7, L 14 lbs; tip pinch R 5, L 9 lbs. Nine hole pegboard test completed to measurement FMC and dexterity on R 23.93, L 23.22 s. She has progressed in all measurements since initial evaluation. She will continue with POC fo 2x weekly visits until end of April to promote increased strength of R wrist and progressively decrease use of splint. Additional intrinsic and resistive exercises for hand and wrist have been provided and she is to start to complete 1x10 reps, 1x daily, as tolerated and will progress to promote increasing strength and endurance to return to PLOF. Sincerely, Mirta Holland, OTR/L Contact Information
--- NOTE | 2018-05-10 11:49 | HP.OTCOM_ITS ---
OT Communication Note 05/10/[address] Thong Marrero, Leida has been seen for a total of 7 OT visits. She reports variable pain per sessions and feels she has made approximately 20% improvement. Subjective improvement related to DASH answers she has indicated increased participation in ADls/IADLs from score of 107 or 60-79% disability to 67 of 20-39% disability. New measurements taken today. She has progressed in most measurements since time of initial evaluation of R wrist. ROM measurements are as follows: wrist flexion R 0-50, L WFL, ext R 0-33, L WFL; radial deviation R extremely limited, L WFL; ulnar dev R 0-19, L WFL; supination R 0-72, L WFL. Strength assessment completed on this date and measurements are as follows: file conversion operator R 20, L 45; lateral pinch R 8, L 12; tripod R 7, L 14 lbs; tip pinch R 5, L 9 lbs. Nine hole pegboard test completed to measurement FMC and dexterity on R 23.93, L 23.22 s. She has progressed in all measurements since initial evaluation. She will continue with POC fo 2x weekly visits until end of April to promote increased strength of R wrist and progressively decrease use of splint. Additional intrinsic and resistive exercises for hand and wrist have been provided and she is to start to complete 1x10 reps, 1x daily, as tolerated and will progress to promote increasing strength and endurance to return to PLOF. Sincerely, Mirta Holland, OTR/L Contact Information
--- NOTE | 2018-05-22 10:03 | OTREVAL_ITS ---
Thong Marrero, DO, It has been my pleasure to treat PIERRE MELENDEZ over the last 10 visits for Radial fx and Ulnar displacement. Please see the progress note below for an update on the occupational therapy plan of care! Subjective: Pt. arrived with brace on. When seeing Dr. Marrero last time around May 11 noted wrist still healing and needed to continue brace. Objective/Function: Measurements completed today. Notes has been completing HEP. Measurements about same or little decreased since May 10 measurements. Measurements are as follows; ROM wrist flexion R 0-50, L 0-85; ext R 0-44, L 0- 71; supination R 0-68, L 0-90; strength bar waiter/waitress R 16, L 39; lateral R 8, L 10; tripod R 56, L 11; pincer R 6, L 9 lbs. 9 hole pegboard test completed R 20.61, L 20.58 s. She has progressed since initial evaluation. Bones still healing at this time and continued strength to be completed. She has progressed towards goals. Plan Frequency: 1-2x /Week Duration: 3 Weeks Plan: continue POC for 1-2x 3 weeks to address continued strengthening and stability of wrist within pain tolerance. Will be progressing to BTE machine as part of progressive strengthening program as well as adding additional exercises for BUE to promote general strengthening of BUE. She has progressed since initial evaluation, but some strength measurements are decreased upon todays performance as opposed to May 10. She is to continue HEp to promote increased bar waiter/waitress and pinch with R dominant hand at this time. Goals - Goals Goal:: Leida to increased R bar waiter/waitress strength by 20-30 lbs to increased strength need to manipulate self care items by d/c. Goal:: Leida to increase R wrist ROM by 5-10 degrees to promote increased mobility of R wrist in pain free range for ADL/IADls by d/c. Goal:: Leida to have no more 1/10 pain with ADL/IADls 4/5 trials 80% of the time to promote increased participation and ability to return to PLOF. Goal:: Leida to be mod I to complete joint protection techniques and body mechanics to promote increased alignment of body 4/5 trials 80% of the time by d /c. Goal:: Leida to be (I) to complete all fx movements needed for self-care and other function tasks e.g. supination to get change 2/3 trials 75% of the time to promote increased ROM and ability to return to PLOF by d/c. Anticipated Interventions Anticipated Interventions: A/AAROM/PROM, Strengthening, Scar Care, Wound Care, Modalities, Orthoses, Joint Protection/Energy Conservation, Ergonomic Education , Fine Motor Coord/Adriano, ADL Training, Caregiver Training, Home Program Please do not hesitate to contact me at [phone] by phone or Fax: if you have questions or concerns regarding this new plan of care! Sincerely, Mirta Holland
--- NOTE | 2018-06-05 10:00 | HP.OTCOM_ITS ---
OT Communication Note 06/05/[address] Thong Marrero, DO Measurements completed from 05/22/18 from re-evaluation: Measurements about same or little decreased since May 10 measurements. Measurements are as follows; ROM wrist flexion R 0-50, L 0-85; ext R 0-44, L 0-71; supination R 0-68 , L 0-90; strength churn driller R 16, L 39; lateral R 8, L 10; tripod R 6, L 11; pincer R 6, L 9 lbs. 9 hole pegboard test completed R 20.61, L 20.58 s. She has progressed since initial evaluation. Bones still healing at this time and continued strength to be completed. She has progressed towards goals. Completed additional measurements today, 06/04/18, and measurements are as follows : ROM for wrist flexion R 0-45, L 0-69; ext R 0-41, L 0-60; supination R 0-75, L WFL. Strength: churn driller R 23, L 36; lateral R 9, L 12; three jaw R 8, L 12. 9 hole R 22.40 s, and L 21.08s. Progressing with strength measurements. Leida is still in splint most of day as Dr. Marrero had instructed due to bone not being fully healed. Exercises have been completed within pain tolerance. She is progressing with therapy and has 2x more scheduled appointments. If all is progressing well after 2x more appointments she will be d/c'd. Sincerely, Mirta Holland, OTR/L Contact Information
--- NOTE | 2018-06-13 14:59 | HP.OTDCSUM_ITS ---
HP - OT D/C Summary It has been my pleasure to treat PIERRE MELENDEZ under orders from Thong Marrero DO, for the diagnosis of Radial fx and Ulnar displacement for a total of 16 visit(s). Please see the following information for a summary of their discharge status. - Overall Improvement % Improvement: 85 - Objective Objective/Function: Completed measurements. She continues to progress. Dorsal swelling remains over R wrist. Measurements are as follows: ROM for wrist flexion R 0-51, L WFL, R ext 0-41, L WFL, supination R 0-70, L 0-93. Completed strength assessment and is as follows: R (average of 2 trials) 26 , L 39; lateral R 10, L 12; tripod R 9, L 12; pincer R 7, L 10 lbs. Completed 9 hole pegboard test and results is as follows: R 20.22 s, L 21.16 s. She has progressed towards and meant some goals. She will be d/c'd. - Goals Patient Goals: Regain Mobility, Regain Strength, Decrease Pain, Return to Work, Improve Fine Motor Skills, Use Hand/Wrist/Arm Normally Again, Sleep Better, Increase ROM, Be More Independent in ADLS, Resume Former Household Responsibilities (Cooking,Cleaning,Yard, etc.), Resume Hobbies Other: Hip is waking her up at night. 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 Goal:: Leida to increase R wrist ROM by 5-10 degrees to promote increased mobility of R wrist in pain free range for ADL/IADls by d/c. Goal:: Leida to have no more 1/10 pain with ADL/IADls 4/5 trials 80% of the time to promote increased participation and ability to return to PLOF. Goal:: Leida to be mod I to complete joint protection techniques and body mechanics to promote increased alignment of body 4/5 trials 80% of the time by d /c. Goal:: Leida to be (I) to complete all fx movements needed for self-care and other function tasks e.g. supination to get change 2/3 trials 75% of the time to promote increased ROM and ability to return to PLOF by d/c. - Plan Plan: Leida has continued to progress with ROM and strengthening. She is back to completing ADl/IADls and will be d/c'd on this date. She is to increased repetitions with HEP as tolerated. She is to call with questions/concerns and has plans to stop in in a couple of weeks post d/c to see how strength is progressing. - D/C Information If there are questions or concerns regarding this patient's occupational therapy , please fell free to call me at [phone]. Thank you for the referral of this patient. Sincerely, Mirta Holland
--- NOTE | 2018-09-20 09:36 | HP.PT.NRP ---
HP - Discharge Summary (1) - Patient Information PIERRE MELENDEZ was seen in my office for initial evaluation on 04/24/18. The following Plan of Care was established for this patient: Initial Frequency: 2x /Week Initial Duration: 4 Weeks - Anticipated Interventions Patient/Client Instruction: Educate patient on: Condition, Plan of Care, Risk Factors, Benefits of Fitness Program For the Purpose of:: To improve health and function, To foster healthy habits, To improve decision making, To facilitate caregiver knowledge, To improve self management, To prevent re-injury, To improve ability to perform tasks related to life management, To improve tolerance to ADL's Therapeutic Exercise to Include: Strength training, Power training, Postural training, Flexibilty training, Passive ROM, Active ROM, Dynamic Lumbar Stabilization, Sadie Exercises For the Purpose of:: To decrease pain, To increase ROM, To improve nutrient delivery to tissue, To increase oxygenation perfusion, To improve muscle performance and motor function, To improve performance and independence with ADL's, To improve ability of physical actions for home/community/work/leisure, To improve gait and locomotor functions, To improve health of tissue, To decrease soft tissue restriction, To increase flexibility/ROM, To improve balance Manual Therapy Techniques to Include: Mobilization, Passive ROM, Functional dry needling, Soft tissue mobilization For the Purpose of:: To decrease pain, To increase ROM, To improve nutrient delivery to tissue, To increase oxygenation perfusion, To improve muscle performance and motor function, To improve ability to perform ADL's Cryotherapy (ice pack, ice massage): Yes Thermo therapy (hot pack): Yes Ultrasound (thermal/non thermal): Yes Pelvic traction supine: Yes For the Purpose of:: To decrease pain, To increase ROM, To improve nutrient delivery to tissue, To increase oxygenation perfusion This patient was last seen in our office 05/10/18. Pertinent comments regarding their Physical therapy will appear below: Pt. was seen for her low back pain. Pt. was not progressing as expected with neutral spine stability exercises and modalities. Pt. was referred back to physician for possible MRI. Pt. ulitmately ended up being referred to surgeon for surgery. Pt. will be DC from PT at this point in time. At this point I will be discontinuing this patient from physical therapy. I would be happy to see this patient again in the future if found appropriate by the physician. Thank you! Thong Fernandes, TREVOR
== END 2018-06-13 19:00 | disposition home or self-care (01) ==
LOC: OT 09:30
PROVIDERS: Family Provider Internal Medicine; PCP Internal Medicine; Referring Provider Orthopaedic Surgery; Visit Provider Orthopaedic Surgery
DX: S52.571D Other intraarticular fracture of lower end of right radius, subsequent encounter for closed fracture with routine healing (principal); S52.611D Displaced fracture of right ulna styloid process, subsequent encounter for closed fracture with routine healing; M54.31 Sciatica, right side
CPT/HCPCS: 97012; 97035; 97110; 97140; 97162; 97166; 97168; 97530

== ENCOUNTER → 2018-08-03 11:09 | Outpatient (CLI) | payer MEDICARE, SELFPAY ==
[2018-08-03 11:42] LABS: Absolute Neutrophil Count 3.3 X10^3/uL (2.0-7.7); Basophil# 0.03 X10^3/uL; Basophil% 0.6 % (0-1); Eosinophil# 0.21 X10^3/uL; Hematocrit 40.7 % (37-47); Hemoglobin 12.7 g/dl (12.0-15.0); Lymphocyte % 21.1 % (19-41); Mean Corp Hgb Conc 31.2 g/gl (32-36); Mean Corpuscular Hgb 30.9 pg (27.0-32.0); Mean Platelet Vol. 10.3 fl (6.2-12.0); Monocyte# 0.62 X10^3/uL; Monocyte% 11.9 % (0-10); Neutrophil # 3.25 X10^3/uL (2.7-7.7); Neutrophil % 62.2 % (47-70); Platelet Count 186 K/mm3 (150-450); RBC Distribution Width SD 49.3 fl (35.1-43.9); Red Blood Count 4.11 M/mm3 (4.2-5.4); White Blood Count 5.2 K/mm3 (4.4-11.0)
[2018-08-03 11:43] LABS: POSITIVE COUNT NO; POSITIVE DIFFERENTIAL NO; POSITIVE MORPHOLOGY NO
[2018-08-03 11:48] LABS: Erythrocyte Sedimentation Rate 12 mm/hr (0-30)
[2018-08-03 12:07] LABS: CRP 4.77 mg/L (0.0-3.0)
== END ==
PROVIDERS: Family Provider Internal Medicine; PCP Internal Medicine; Referring Provider Specialist; Visit Provider Specialist
DX: S52.291K Other fracture of shaft of right ulna, subsequent encounter for closed fracture with nonunion (principal)
CPT/HCPCS: 36415; 85025; 85652; 86140

== ENCOUNTER 2018-10-24 10:00 | Outpatient (RCR) | payer MEDICARE, SELFPAY ==
--- NOTE | 2018-08-02 18:34 | HP.PTEVAL_ITS ---
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 Date of Evaluation: 08/02/18 Physical Therapist: Renetta Langford - Visit Plan Frequency: 2x /Week Duration: 3 Weeks Plan: Start advanceing AROM as of 08-17-18. Pt has a TM at home and would like to see if she is able to do that on her own at a slow speed with UE support. Next week discuss weaning abdominal brace for short periods. - Subjective Subjective: Pt has microdisectomy on 07-17. She was having weakness in R leg and pain in R leg/ hip and back before surgery. She still has weakness in R leg and Dr is hopeful that it will go away. They think that when she fell and broke her wrist in February she hurt her back. SHe has been walking with the cane for about 1 week. At home she can walk around some without the cane. SHe has a great deal of pain when she gets up first thing in the morning...its definitly a pain and walking helps to relieve it. She takes pain pill in the evening before bed. She is sleeping ok. Pt reports no trouble in/out of bed etc. Stairs: uses railing and 2 feet to a stair and leading with the L leg. Pt has no bending list or twisting till Aug 26 and wear brace until Aug 26... - Pain Back pain Pain Intensity (Out of 10): 2 R leg pain Pain Intensity (Out of 10): 5 - Objective Gait: walks with a binder brace on and straight cane in the R hand. she walks very straight spine with little arm swing. Stairs: up stairs using rails to pull self up the step with ascending with the R leg otherwise she ascends with a step 2 pattern leading with the L leg first. LE MMT: hip flex R 4-/5 and L 4/5, knee ext B 4/5, knee flex R 4-/5 and L 4/5, 4-/5 R DF and L 4/5, hip abd R 4-/5 and L 4/5, Bridge without issue or pain. - Goals Goal 1:: I HEP Goal Time Frame: 4-6 Weeks Goal 2:: Be able to go up and down stairs recip with 1 rail. Goal Time Frame: 4-6 Weeks Goal 3:: Be able to walk without an assistance device without AD without antalgic gait Goal Time Frame: 4-6 Weeks Goal 4:: Increase trunk AROM to 75% all planes without pain Goal Time Frame: 4-6 Weeks - Rehabilitation Potential Rehabilitation Potential: Good - Anticipated Interventions Patient/Client Instruction: Educate patient on: Condition, Plan of Care For the Purpose of:: To decrease pain, To decrease swelling/inflammation, To increase ROM, To improve nutrient delivery to tissue, To improve muscle performance and motor function, To improve ability to perform ADL's, To increase tolerance to activity/condition/position, To improve performance and independence with ADL's, To improve ability of physical actions for home/community/work/leisure, To improve gait and locomotor functions, To improve health of tissue, To decrease soft tissue restriction, To increase flexibility/ROM, To improve safety with gait Therapeutic Exercise to Include: Strength training, Body mechanics, Postural training, Flexibilty training, Gait and locomotor training, Neuromotor development, Active ROM, Dynamic Lumbar Stabilization For the Purpose of:: To decrease pain, To decrease swelling/inflammation, To increase ROM, To improve nutrient delivery to tissue, To improve muscle performance and motor function, To improve ability to perform ADL's, To increase tolerance to activity/condition/position, To improve performance and independence with ADL's, To decrease level of supervision to perform tasks, To improve gait and locomotor functions, To improve health of tissue, To decrease soft tissue restriction, To improve safety with gait Functional Training to Include: Gait training For the Purpose of:: To improve gait and locomotor functions Thank you for the opportunity to evaluate your patient. For Medicare and Medicare HMO plans, please review the plan of care and approve it. It will need to be FAXED BACK to us at [phone] for Medicare purposes. Please let me know if there are questions or concerns regarding this plan of care. Physician Signature: Date:
--- NOTE | 2018-08-25 11:11 | HP.PTREVAL ---
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 Please see the progress note below for an update on the physical therapy plan of care! Subjective: Pt reports that she feels better than when she was here the last time and the weakness in her R leg is still there. She is doing all the exercises and has been doing the steps ups with the R leg. Pt is having wrist surgery on Tuesday. Objective/Function: R leg weakness persists.... Pt still walks very stiff with trunk rotation Plan Plan: Hold chart until after wrist surgery Aug 29. Pt has a TM at home and would like to see if she is able to do that on her own at a slow speed with UE support. Next week discuss weaning abdominal brace for short periods. Goals Goal 1:: I HEP Goal Time Frame: 4-6 Weeks Goal Progress: Goal Met Goal 2:: Be able to go up and down stairs recip with 1 rail. Goal Time Frame: 4-6 Weeks Goal Progress: Progressing Goal 3:: Be able to walk without an assistance device without AD without antalgic gait Goal Time Frame: 4-6 Weeks Goal Progress: Progressing Goal 4:: Increase trunk AROM to 75% all planes without pain Goal Time Frame: 4-6 Weeks Anticipated Interventions Patient/Client Instruction: Educate patient on: Condition, Plan of Care For the Purpose of:: To decrease pain, To decrease swelling/inflammation, To increase ROM, To improve nutrient delivery to tissue, To improve muscle performance and motor function, To improve ability to perform ADL's, To increase tolerance to activity/condition/position, To improve performance and independence with ADL's, To improve ability of physical actions for home/community/work/leisure, To improve gait and locomotor functions, To improve health of tissue, To decrease soft tissue restriction, To increase flexibility/ROM, To improve safety with gait Therapeutic Exercise to Include: Strength training, Body mechanics, Postural training, Flexibilty training, Gait and locomotor training, Neuromotor development, Active ROM, Dynamic Lumbar Stabilization For the Purpose of:: To decrease pain, To decrease swelling/inflammation, To increase ROM, To improve nutrient delivery to tissue, To improve muscle performance and motor function, To improve ability to perform ADL's, To increase tolerance to activity/condition/position, To improve performance and independence with ADL's, To decrease level of supervision to perform tasks, To improve gait and locomotor functions, To improve health of tissue, To decrease soft tissue restriction, To improve safety with gait Functional Training to Include: Gait training For the Purpose of:: To improve gait and locomotor functions Please do not hesitate to contact me at [phone] by phone or if you have questions or concerns regarding this new plan of care! Sincerely, Renetta Langford
--- NOTE | 2018-09-29 12:42 | HP.PTREVAL ---
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 Please see the progress note below for an update on the physical therapy plan of care! Subjective: Pty reports that she is still having quite a bit of pain in r LEG AND r HIP. said that it just has to take time for the nerve to reverse itself. SHe has a lot of pain in the morning. She has quite a bit of pain in the front of the thigh. SHe has been having a lot of anxiety attacks and has been on a med but not sure that it is helping. She is not getting a whole lot of sleep. She has wrist surgery and has a cast on the R arm...she gets the cast off in 2 weeks. No metal implants in her back. Still having trouble getting out of bed because of the pain Objective/Function: Pt had some point tender points on the right side of L-spine Plan Plan: 2X/ week for 4 weeks for MT to L-spine, , possible US, core stability with HEP Goals Goal 1:: I HEP Goal Time Frame: 4-6 Weeks Goal Progress: Goal Met Goal 2:: Be able to go up and down stairs recip with 1 rail. Goal Time Frame: 4-6 Weeks Goal Progress: Progressing Goal 3:: Be able to walk without an assistance device without AD without antalgic gait Goal Time Frame: 4-6 Weeks Goal Progress: Progressing Goal 4:: Increase trunk AROM to 75% all planes without pain Goal Time Frame: 4-6 Weeks Anticipated Interventions Patient/Client Instruction: Educate patient on: Condition, Plan of Care For the Purpose of:: To decrease pain, To decrease swelling/inflammation, To increase ROM, To improve nutrient delivery to tissue, To improve muscle performance and motor function, To improve ability to perform ADL's, To increase tolerance to activity/condition/position, To improve performance and independence with ADL's, To improve ability of physical actions for home/community/work/leisure, To improve gait and locomotor functions, To improve health of tissue, To decrease soft tissue restriction, To increase flexibility/ROM, To improve safety with gait Therapeutic Exercise to Include: Strength training, Body mechanics, Postural training, Flexibilty training, Gait and locomotor training, Neuromotor development, Active ROM, Dynamic Lumbar Stabilization For the Purpose of:: To decrease pain, To decrease swelling/inflammation, To increase ROM, To improve nutrient delivery to tissue, To improve muscle performance and motor function, To improve ability to perform ADL's, To increase tolerance to activity/condition/position, To improve performance and independence with ADL's, To decrease level of supervision to perform tasks, To improve gait and locomotor functions, To improve health of tissue, To decrease soft tissue restriction, To improve safety with gait Functional Training to Include: Gait training For the Purpose of:: To improve gait and locomotor functions Please do not hesitate to contact me at [phone] by phone or if you have questions or concerns regarding this new plan of care! Sincerely, Renetta Langford MPT
--- NOTE | 2018-10-24 10:25 | HP.PTREVAL ---
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 Please see the progress note below for an update on the physical therapy plan of care! Subjective: Pt reports that she is not sleeping and has pain in her back and down her R hip and into her knees some. Pt sees the Dr today. Pt reports that her back hurts when she is at the sink and has a hard time standing back up. Objective/Function: Stairs: UP AND DOWN RECIP WITH 2 HAND RAILS...slight weakness present ascending stairs on the R leg. Gait: walks wtih no trunk rotation and arm swing. Trunk Arom: flexion 75% with increase pain. extension 50%, SB B 50%, and Rot B 25%. LE MMT: R hip flex 4/5, R hip abd 4-/5, R knee ext and R knee flex 4/5. +SLR B for pain R hip Plan Plan: Hold chart X [address] appointment. At this point in time pt is not making major improvements. Goals Goal 1:: I HEP Goal Time Frame: 4-6 Weeks Goal Progress: Goal Met Goal 2:: Be able to go up and down stairs recip with 1 rail. Goal Time Frame: 4-6 Weeks Goal Progress: Progressing Goal 3:: Be able to walk without an assistance device without AD without antalgic gait Goal Time Frame: 4-6 Weeks Goal Progress: Goal Met Goal 4:: Increase trunk AROM to 75% all planes without pain Goal Time Frame: 4-6 Weeks Goal Progress: Progressing Anticipated Interventions Patient/Client Instruction: Educate patient on: Condition, Plan of Care For the Purpose of:: To decrease pain, To decrease swelling/inflammation, To increase ROM, To improve nutrient delivery to tissue, To improve muscle performance and motor function, To improve ability to perform ADL's, To increase tolerance to activity/condition/position, To improve performance and independence with ADL's, To improve ability of physical actions for home/community/work/leisure, To improve gait and locomotor functions, To improve health of tissue, To decrease soft tissue restriction, To increase flexibility/ROM, To improve safety with gait Therapeutic Exercise to Include: Strength training, Body mechanics, Postural training, Flexibilty training, Gait and locomotor training, Neuromotor development, Active ROM, Dynamic Lumbar Stabilization For the Purpose of:: To decrease pain, To decrease swelling/inflammation, To increase ROM, To improve nutrient delivery to tissue, To improve muscle performance and motor function, To improve ability to perform ADL's, To increase tolerance to activity/condition/position, To improve performance and independence with ADL's, To decrease level of supervision to perform tasks, To improve gait and locomotor functions, To improve health of tissue, To decrease soft tissue restriction, To improve safety with gait Functional Training to Include: Gait training For the Purpose of:: To improve gait and locomotor functions Please do not hesitate to contact me at [phone] by phone or if you have questions or concerns regarding this new plan of care! Sincerely, Renetta Langford, MPT
--- NOTE | 2018-10-25 12:47 | HP.PTDCSUM ---
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 Discharge Date: 10/25/18 Please see the following information for a summary of their discharge status. - Subjective Subjective: Pt reports that she is not sleeping and has pain in her back and down her R hip and into her knees some. Pt sees the Dr today. Pt reports that her back hurts when she is at the sink and has a hard time standing back up. - Pain Back pain Pain Intensity (Out of 10): 5 R leg pain Pain Intensity (Out of 10): 5 - Overall Improvement % Improvement: 80 - Objective Objective/Function: Stairs: UP AND DOWN RECIP WITH 2 HAND RAILS...slight weakness present ascending stairs on the R leg. Gait: walks wtih no trunk rotation and arm swing. Trunk Arom: flexion 75% with increase pain. extension 50%, SB B 50%, and Rot B 25%. LE MMT: R hip flex 4/5, R hip abd 4-/5, R knee ext and R knee flex 4/5. +SLR B for pain R hip - Goals Goal 1:: I HEP Goal Progress: Goal Met Goal 2:: Be able to go up and down stairs recip with 1 rail. Goal Progress: Progressing Goal 3:: Be able to walk without an assistance device without AD without antalgic gait Goal Progress: Goal Met Goal 4:: Increase trunk AROM to 75% all planes without pain Goal Progress: Progressing - Plan Plan: Hold chart X [address] appointment. At this point in time pt is not making major improvements. - D/C Information Discharge Comments: DC PT If there are questions or concerns regarding this patient's physical therapy, please feel free to call me at [phone]. Thank you for the referral of this patient. Sincerely, Renetta Langford, MPT
== END 2018-10-24 19:00 | disposition home or self-care (01) ==
LOC: PT 10:00
PROVIDERS: Family Provider Internal Medicine; PCP Internal Medicine; Referring Provider Nurse Practitioner Acute Care; Visit Provider Nurse Practitioner Acute Care
DX: M51.26 Other intervertebral disc displacement, lumbar region (principal)
CPT/HCPCS: 97110; 97140; 97161; 97530

== ENCOUNTER 2019-01-16 09:30 | Outpatient (RCR) | payer MEDICARE, SELFPAY ==
--- NOTE | 2018-12-19 12:16 | HP.PTEVAL_ITS ---
Patient's Visit Information PIERRE MELENDEZ is a 78 year old F referred to Physical Therapy by DESHAWN Pimentel with a diagnosis of Sacral dysfunction, HNP Lumbar, Lumbar spinal stenosis. Date of Evaluation: 12/19/18 Physical Therapist: SANGEETA Melchor - Visit Plan Frequency: 2x /Week Duration: 4 Weeks Plan: 2X/ week for 4 weeks for AT for core and SI stability, hip strengthening, pain relief with HEP. Possible R heel lift as R leg is slightly shorter than L - Subjective Findings: She had back surgery on Jul 17, 2018 for a bulging disc. Pt went back to and she had a cortizone shot and not having as much trouble getting out of a chair or out of a bed. She is having trouble with her R hip and it bothers her all the time and especially when bending fw she has to get up slowly. She points to lower back and buttock area. It hurts a little sitting in the chair. She has had no hip replacements. Once in awhile she has some pain down to her knee but nothing like before. Maybe once or twice a week. She got her cortizone shot in her SI shot under x-ray. No N&T. Next step in another MRI if PT does not help. - Pain R hip pain Pain Intensity (Out of 10): 4 Pain Intensity Range: 8 - Objective Gait: Walks with decrease stance time on the R. LE MMT: B hip flex 4/5, B knee ext 4/5, B knee flex 4/5, B hip abd 4/5, Pt is able to do 1/4 normal ROM bridge. -SLUMP test B. Trunk AROM: flexion 80%, Ext 100%, SB B 75%. Patellar DTR B 0/3. R leg is slightly shorter than the L. Did slight shot gun technique and pt's leg length improved. - Goals Goal 1:: I HEP Goal Time Frame: 4-6 Weeks Goal 2:: Decrease R hip pain by 50% to 1-2/10 pain Goal Time Frame: 4-6 Weeks Goal 3:: Be able to lay on her R side without having pain Goal Time Frame: 4-6 Weeks Goal 4:: Be able to do a full ROM bridge Goal Time Frame: 4-6 Weeks - Rehabilitation Potential Rehabilitation Potential: Good - Anticipated Interventions Patient/Client Instruction: Educate patient on: Condition, Plan of Care For the Purpose of:: To decrease pain, To increase ROM, To improve nutrient delivery to tissue, To improve muscle performance and motor function, To improve ability to perform ADL's, To increase tolerance to activity/condition/position, To improve performance and independence with ADL's, To improve gait and locomotor functions, To improve health of tissue, To increase flexibility/ROM Therapeutic Exercise to Include: Strength training, Body mechanics, Postural training, Flexibilty training, Active ROM, Dynamic Lumbar Stabilization For the Purpose of:: To decrease pain, To improve nutrient delivery to tissue, To improve muscle performance and motor function, To improve ability to perform ADL's, To decrease level of supervision to perform tasks, To improve gait and locomotor functions, To improve health of tissue, To decrease soft tissue restriction Thank you for the opportunity to evaluate your patient. For Medicare and Medicare HMO plans, please review the plan of care and approve it. It will need to be FAXED BACK to us at [phone] for Medicare purposes. For Medicare only, by signing this I certify the plan of care. Please let me know if there are questions or concerns regarding this plan of care. Physician Signature: Date:
--- NOTE | 2019-01-16 10:04 | HP.PTDCSUM_ITS ---
HP - PT D/C Summary It has been my pleasure to treat PIERRE MELENDEZ under orders from DESHAWN Pimentel, for the diagnosis of Sacral dysfunction, HNP Lumbar, Lumbar spinal stenosis for a total of 9 visit(s). Discharge Date: 01/16/19 Please see the following information for a summary of their discharge status. - Subjective Subjective: Pt reports that she thought the pool was ok and was hard to follow. Pt reports that she is still having a lot of trouble in her back and hip and down her leg. She can turn easier in bed but sometimes she needs to use her hands to turn her hips. Pt report sthat stairs are pretty goood but by the time she gets to the top she feels she needs the railing to push self up. SHe says that laying on R side is painful for her and trouble getting out of bed. She has trouble gettin things out of the strategic [employer] specialist. She still has a lot of creaking and cracking going on. Pt would like to go back to Dr and get the MRI the Dr suggested after water therapy. Pt reports that a good part of the time she is having pain across her LB and then settles into her R hip. - Pain R hip pain Pain Intensity (Out of 10): 4 LB Pain Intensity (Out of 10): 4 - Overall Improvement % Improvement: 25 - Objective Objective/Function: Pts R leg was alittle shorter than the L - Goals Goal 1:: I HEP Goal Progress: Progressing Goal 2:: Decrease R hip pain by 50% to 1-2/10 pain Goal Progress: Not Progressing Goal 3:: Be able to lay on her R side without having pain Goal Progress: Not Progressing Goal 4:: Be able to do a full ROM bridge - Plan Plan: DC PT back to physican reassessment. - D/C Information Discharge Comments: DC PT to physician reassessment If there are questions or concerns regarding this patient's physical therapy, please feel free to call me at [phone]. Thank you for the referral of this patient. Sincerely, Renetta Langford, MPT
== END 2019-01-16 19:00 | disposition home or self-care (01) ==
LOC: PT 09:30
PROVIDERS: Family Provider Internal Medicine; PCP Internal Medicine; Referring Provider Nurse Practitioner Acute Care; Visit Provider Nurse Practitioner Acute Care
DX: M53.3 Sacrococcygeal disorders, not elsewhere classified (principal); M51.26 Other intervertebral disc displacement, lumbar region; M48.061 Spinal stenosis, lumbar region without neurogenic claudication
CPT/HCPCS: 97113; 97161; 97530

== ENCOUNTER → 2019-01-24 | Outpatient (CLI) | payer MEDICARE, SELFPAY ==
--- NOTE | 2019-01-24 15:30 | BI_ITS ---
MAMMOGRAPHY - BILATERAL SCREENING REASON FOR EXAM: Female, 78 years old. Routine annual screening examination. PERTINENT HISTORY: Non-contributory. TECHNIQUE: Digital bilateral breast eddy (3D mammographic acquisition) in the CC and MLO projections. 2-D mediolateral oblique (MLO) and craniocaudad (CC) views of both breasts were obtained. CAD: Full Field Digital Mammography with Computer Added Detection was performed. COMPARISON: Comparison is made with prior study dated January 04, 2018 and December 14, 2016. FINDINGS: Breast Composition: The breasts are heterogeneously dense, which may obscure small masses. There are no dominant masses or suspicious calcifications. Stable scattered bilateral breast calcifications. No other significant abnormalities are identified. There has been no significant change since the prior study. BI/SCREENING MAMM (CAD), BILAT IMPRESSION: Stable bilateral screening mammogram. Yearly follow-up mammogram recommended. (A) ASSESSMENT CATEGORY: BIRADS Category 2: Benign. A letter regarding these results will be sent to the patient by the facility within 30 days. Approximately 10% of breast cancers are not detected by mammography. A normal mammogram should not delay biopsy of a clinically suspicious abnormality. [id number] Electronically Signed: Jey Bustillo, at 15:23 EDT , Service support ,
== END | disposition home or self-care (01) ==
PROVIDERS: Family Provider Internal Medicine; PCP Internal Medicine; Referring Provider Obstetrics & Gynecology; Visit Provider Obstetrics & Gynecology
DX: Z12.31 Encounter for screening mammogram for malignant neoplasm of breast (principal)
CPT/HCPCS: 77063; 77067

== ENCOUNTER → 2019-02-22 09:32 | Outpatient (CLI) | payer MEDICARE, SELFPAY ==
[2019-02-13 12:50] LABS: EST Glomerular Filtration Rate 102 mL/min (>60); Est Glom Filt Rate - Afr Amer 124 mL/min (>60)
--- NOTE | 2019-02-22 09:43 | MRI_ITS ---
HISTORY: hnp, hx prior surgery, RIGHT LEG AND HIP PAIN EXAM/TECHNIQUE: MR Spine Lumbar WO/W Contrast: Multiplanar, multisequence. 14 cc Dotarem administered intravenously. 1.5 [place]. COMPARISON: None. FINDINGS: # of images incl. paperwork: 151 No acute fracture or acute signal changes in the vertebrae. Sagittal alignment anatomic. Mild left scoliosis centered at L2-3. Conus terminates at the level of the mid L1 vertebral body with normal contour and signal. Thecal sac terminates at the level of mid S2. No acute findings in the paraspinal soft tissues. At L1-2, mild bilateral facet degeneration causes no significant narrowing. At L2-3, the patient is status post bilateral laminotomy and partial discectomy with decompression of the spinal canal. Disc and osteophyte extends into and moderately narrow the right and mildly narrow the left foramina. Disc spacing device in place. Chronic postoperative changes in the right paramedian posterior paraspinal soft tissues. At L3-4, diffuse disc bulge, with small left-sided protrusion, combine with moderate to severe bilateral facet degeneration to cause moderate narrowing of the left subarticular zone with posterior displacement of the traversing left L4 nerve root. Only mild bilateral foraminal narrowing. Mild degenerative endplate irregularity at this level. At L4-5, there is marked disc space loss and degenerative irregularity of the endplates, and marked bilateral facet degeneration with degenerative buckling of the ligamentum flavum. Disc and osteophytes combine with facet degeneration to cause moderate narrowing of the bilateral subarticular zones, with disc and ligamentum flavum abutting but not definitively compressing the traversing bilateral L5 nerve roots. Only mild bilateral foraminal narrowing. At L5-S1, mild bilateral facet degeneration causes no significant narrowing. No concerning enhancement. MRI/Spine Lumbar W/WO Contrast IMPRESSION: Mild mass-effect upon, but no definite compression of, the left L4 nerve root in the left subarticular zone of L3-4, and at the bilateral L5 nerve roots in the bilateral subarticular zones of L4-5. No other etiology for radiculopathy identified. Multilevel prominent degenerative changes as well as postoperative changes at L2-3, described in detail above. at 1220 Reported and signed by: Nelson Boswell MD Electronically Signed: Nelson Boswell, at 12:18 EDT Tel , Service support ,
[2019-02-22 10:11] LABS: CREATININE FINGERSTICK 0.8 mg/dL (0.55-1.02); EGFR FINGERSTICK > 60.0000 mL/min (>60)
== END ==
PROVIDERS: Family Provider Internal Medicine; PCP Internal Medicine; Referring Provider Nurse Practitioner; Visit Provider Nurse Practitioner
DX: M51.26 Other intervertebral disc displacement, lumbar region (principal)
CPT/HCPCS: 36415; 72158; 82565; A9575

== ENCOUNTER 2019-11-03 15:31 | Emergency (ER) | payer MEDICARE, SELFPAY ==
[2019-08-29 09:47] VITALS: BMI 25.6
[2019-11-03 15:31] VITALS: BP 159/86; PULSE 75; RESP 18; TEMP 36.6; O2SAT 95; BMI 26.6
--- NOTE | 2019-11-03 17:00 | CT_ITS ---
STUDY: CT ABDOMEN AND PELVIS WITHOUT CONTRAST REASON FOR EXAM: Female, 79 years old. Right-sided flank pain RADIATION DOSAGE (If Supplied By Facility): CTDIvol = ( 7.62 ) mGy, DLP = ( 374.83 ) mGycm TECHNIQUE: Transaxial images were obtained from the dome of the diaphragm to the symphysis pubis without oral contrast, and without intravenous contrast. Sagittal and coronal images were reconstructed. Individualized dose optimization techniques were used for this CT. COMPARISON: None. FINDINGS: There is a 6 mm proximal right ureteral stone with mild hydronephrosis. There are punctate 1 mm calyceal nonobstructing bilateral calculi. There are no left-sided stones. Bladder is normal. Remainder of abdominal structures are normal. Lumbar spine is intact, alignment, with degenerative change at L2-L3 and prior laminectomy decompression. Thecal sac is compressed at L3-L4 and L4-L5 due to superimposed disc herniations. CT/Abdomen/Pelvis without Cont IMPRESSION: 1. Right proximal ureteral 6 cm stone with mild hydronephrosis. Urology referral is advised. 2. Multilevel moderate thecal sac stenosis. Clinical attention is advised. Electronically Signed: Melania Lucia, at 17:36 EST Tel , Service support ,
[2019-11-03 17:19] LABS: Absolute Lymphocyte Count 0.92 X10^3/uL (0.83-4.51); Absolute Neutrophil Count 5.2 X10^3/uL (2.0-7.7); Basophil# 0.04 X10^3/uL; Basophil% 0.6 % (0-1); Eosinophil# 0.17 X10^3/uL; Eosinophils% 2.4 % (0-5); Hematocrit 41.1 % (37-47); Lymphocyte # 0.92 X10^3/ul (4.0); Mean Corp Hgb Conc 31.6 g/dL (32-36); Mean Corpuscular Hgb 30.4 pg (27.0-32.0); Mean Corpuscular Volume 96.3 fL (81-99); Mean Platelet Vol. 11.5 fl (6.2-12.0); Monocyte# 0.65 X10^3/uL; Monocyte% 9.2 % (0-10); NRBC Flagged by Analyzer 0 % (0-5); Neutrophil # 5.24 X10^3/uL (2.7-7.7); Neutrophil % 74.4 % (47-70); Platelet Count 161 K/mm3 (150-450); RBC Distribution Width CV 16.5 % (11.6-14.6); RBC Distribution Width SD 58.1 fl (35.1-43.9); Red Blood Count 4.27 M/mm3 (4.2-5.4); White Blood Count 7.1 K/mm3 (4.4-11.0)
[2019-11-03 17:29] LABS: Anion Gap 4 (5-15); BUN 15 mg/dL (7-18); BUN/Creat Ratio 15.3 RATIO (10-20); Calcium,Total 9.1 mg/dL (8.5-10.1); Chloride 113 mmol/L (98-107); Creatinine, Serum 0.98 mg/dL (0.55-1.02); EST Glomerular Filtration Rate 58 mL/min (>60); Est Glom Filt Rate - Afr Amer 70 mL/min (>60); Estimated Creatinine Clearance 41.51 ml/min; Glucose 131 mg/dL (74-106); Potassium 4.8 mmol/L (3.5-5.1); Sodium Level 142 mmol/L (136-145)
--- NOTE | 2019-11-03 17:41 | ED.VISSUMM ---
- ER Visit Summary Date of Service: 11/03/19 Chief Complaint: Right flank pain History of Present Illness: The patient is a 79 F presenting with right flank pain. States this started around 10:30 AM suddenly today. She has pain in her right flank that radiates to her right lower quadrant. No history of kidney stones. She did note small amount of blood in her urine today. She denies fever. Denies chest pain or shortness of breath. Denies other complaints. She has a history of chronic back pain and is in pain management. She denies numbness or weakness. No bowel or bladder incontinence. No fever. Physical Examination: Vitals are stable. Patient is afebrile. Alert no acute distress. HEENT exam is unremarkable. Neck is supple. Lungs are clear and equal bilaterally. Heart is regular rate and rhythm. Abdomen is soft nontender nondistended. Back: Right CVA tenderness Extremities are unremarkable. Skin is warm and dry. No focal neurologic deficit. Normal strength and sensation Remainder of exam is unremarkable. Emergency Department Course and Treatment: Patient was given morphine, Zofran IV. CBC, chemistries unremarkable. Urinalysis shows 0-5 white blood cells, over [address] abdomen pelvis shows right proximal ureteral 6 mm stone with mild hydronephrosis. Urology referral is advised. Multilevel moderate thecal sac stenosis. Discussed with Dr. Taylor. Patient's pain is controlled. She will follow-up in the office. Discussed with Dr. Macias, he will see her in the office on Tuesday. He is in agreement with a short course of Percocet until she can be seen in the office. She also has a follow-up appointment this week at [facility] for her chronic back pain. She is advised to return to ED for any worsening complaints. Disposition: Discharge home Impression: Urolithiasis This note was generated with [employer] dictation software. It may contain incorrect words, spelling, and punctuation that were not noted in review of the chart prior to signing ED Disposition - Plan for ED Patient: Instructions: KIDNEY STONE w/ Colic Prescriptions: Oxycodone HCl/Acetaminophen [Percocet 5/325] 1 tab PO Q6H PRN PRN 3 Days #12 tab PRN Reason: Pain Prescription Printed Referrals: Cal Macias MD [STAFF PHYSICIAN] - González Taylor MD [STAFF PHYSICIAN] - Raghav Torres MD [Primary Care Provider] -
[2019-11-03] MEDS: Morphine 4 MG/ML Syringe IV (17:42)
[2019-11-03] MEDS: Ondansetron 4 MG/2 ML Vial IV (17:42)
[2019-11-03 17:43] LABS: Bacteria 0 SEEN /hpf (None Seen); Mucous, Urine 0 SEEN /hpf (<or=2+)
[2019-11-03 17:45] LABS: Color, Urine Yellow (Yellow); Glucose, Dipstick Normal (Normal); Ketone-Dipstick Negative (Negative); Leukocyte Esterase-Dipstick 100 /ul (Negative); Nitrite-Dipstick Negative (Negative); Occult Blood-Urine 250 /ul (Negative); Protein-Dipstick 30 mg/dl (Negative); Specific Gravity, Urine 1.015 (1.002-1.030); Urine Bilirubin Dipstick Negative (Negative); Urine Clarity Sl. Cloudy (Clear); Urine Urobilinogen Normal (Normal)
[2019-11-03 18:22] LABS: Red Blood Cells-Urine > 100 SEEN /hpf (0-5); Squamous Epithelial Cells - UA 0-5 SEEN /hpf (5-10); Transitional Epithelial - Ur 0-5 SEEN /hpf (0-5); White Blood Cells 0-5 SEEN /hpf (0-5)
[2019-11-03 19:07] VITALS: BP 150/80; PULSE 80; RESP 16; O2SAT 100
--- NOTE | 2019-11-03 20:08 | ED.DEP ---
ED Disposition - Plan for ED Patient: Instructions: KIDNEY STONE w/ Colic Prescriptions: Oxycodone HCl/Acetaminophen [Percocet 5/325] 1 tablet PO Q6H PRN PRN 3 Days #12 tablet PRN Reason: Pain Referrals: González Taylor MD [STAFF PHYSICIAN] - Raghav Torres MD [Primary Care Provider] - Cal Macias MD [STAFF PHYSICIAN] -
[2019-11-03 20:34] VITALS: RESP 18
== END 2019-11-03 20:35 | disposition home or self-care (01) ==
LOC: ED 16:46
PROVIDERS: Emergency Provider Emergency Medicine; PCP Internal Medicine
DX: N13.2 Hydronephrosis with renal and ureteral calculous obstruction (principal); I10 Essential (primary) hypertension; K21.9 Gastro-esophageal reflux disease without esophagitis
CPT/HCPCS: 74176; 80048; 81001; 85025; 96374; 96375; 99283; A4216; J2405

== ENCOUNTER → 2019-11-06 09:05 | Outpatient (CLI) | payer MEDICARE, SELFPAY ==
[2019-08-29 09:47] VITALS: BMI 25.6
[2019-11-03 15:31] VITALS: BMI 26.6
--- NOTE | 2019-11-06 09:10 | RAD_ITS ---
STUDY: X-RAY - ESOPHAGUS (BARIUM SWALLOW) WITH FLUOROSCOPY REASON FOR EXAM: Female, 79 years old. Dysphagia, acid reflux -- feels like food gets stuck lower esophagus -- x 2-3 weeks, daily TECHNIQUE: 16 view(s) of the esophagus were obtained following swallowing of barium. FLUOROSCOPY TIME (if supplied): (0:29) minutes/seconds COMPARISON: None. FINDINGS: There is no demonstrated esophageal foreign body. There is evidence of a tertiary contractions in the distal esophagus. Normal gastroesophageal junction, without a demonstrated hiatal hernia. The patient ingested a 12 mm tablet of barium. The tablet is trapped at the gastroesophageal junction. Incidental note is made of a 1 cm diverticulum in the second portion of the duodenum. Normal visualized aortic arch and descending thoracic aorta. Normal visualized pulmonary parenchyma. Normal visualized osseous structures of the thorax. RAD/Esophagus Only IMPRESSION: Tertiary contractions of the distal esophagus with trapping of the 12 mm tablet of barium at the gastroesophageal junction. Electronically Signed: Jey Bustillo, at 9:49 EST , Service support ,
== END ==
PROVIDERS: PCP Internal Medicine; Referring Provider Nurse Practitioner Adult Health; Visit Provider Nurse Practitioner Adult Health
DX: K21.9 Gastro-esophageal reflux disease without esophagitis (principal); R13.10 Dysphagia, unspecified
CPT/HCPCS: 74220

== ENCOUNTER 2019-11-09 10:25 | Day surgery (SDC) | payer MEDICARE, SELFPAY ==
--- NOTE | 2019-11-09 08:26 | RAD_ITS ---
STUDY: X-RAY - ABDOMEN/PELVIS REASON FOR EXAM: Female, 79 years old. Right sided kidney stones, having surgery today -- esophagram done 11-06-19 TECHNIQUE: Single AP view of the abdomen / pelvis. COMPARISON: None. FINDINGS: A large amount of barium is seen throughout the colon. Due to the barium, assessment of renal calculi cannot be obtained. The visualized liver, spleen and kidneys are grossly normal in size and morphology. Normal soft tissue structures. There are diffuse degenerative changes of the visualized lumbar spine. RAD/Abdomen Single View IMPRESSION: Large amount of residual barium is seen throughout the colon. This limits the evaluation. Electronically Signed: Jey Bustillo, at 11:14 EST , Service support ,
[2019-11-09 11:02] VITALS: BP 151/66; PULSE 68; RESP 15; TEMP 36.2; O2SAT 96; BMI 26.9
[2019-11-09] MEDS: Lactated Ringers 1,000 ML 100 ML IV (11:10)
[2019-11-09] MEDS: Cefazolin 2 GM in 0.9% Normal Saline 100 ML IV (12:32)
--- NOTE | 2019-11-09 12:34 | DCINST_ITS ---
Discharge Diet: Light diet - advance as tolerated Discharge Activity: Return to Normal Activity Call your doctor if your incision/area has: Sudden Increased Bleeding Call your doctor if you observe: Fever of 101 or Higher Suture Line Care: Avoid Pulling/Pushing, Avoid Pinching/Bending Instructions: Shock Wave Lithotripsy Allergies/Adverse Reactions: Allergies paroxetine Allergy (Verified 11/09/19 11:00) Other sulfamethoxazole [From Mayra] Allergy (Verified 11/09/19 11:00) Unknown trimethoprim [From Mayra] Allergy (Verified 11/09/19 11:00) Unknown Medications to take at Discharge Calcium (Elemental) [Caltrate-600] 600 mg PO QHS 11/04/14 Dextrin [Fiber] 625 gm PO DAILY 11/04/14 Dicyclomine HCl [Bentyl] 10 mg PO Q6H PRN PRN 11/04/14 Lactobacillus Combination No.4 [Probiotic] 1 ea PO DAILY 11/04/14 Latanoprost 0.005% [Xalatan Opthalmic] 1 drp EACH EYE QHS 11/04/14 Leflunomide [Arava] 20 mg PO QHS 11/04/14 Multivitamins,Therapeutic [Multivitamin] 1 tab PO DAILY 11/04/14 [place]-3 Fatty Acids/Fish Oil [Fish Oil 1,000 mg Capsule] 1 ea PO MOWEFR 11/04/14 Ropinirole HCl [Requip] 0.5 mg PO QHS 11/04/14 Timolol [Betimol] 1 drp EACH EYE QHS 11/04/14 traZODone [Desyrel] 25 mg PO QHS 11/04/14 atorvastatin 20 mg tablet 10 mg PO QHS tab 10/25/17 cholecalciferol (vitamin D3) 50 mcg (2,000 unit) capsule 2,000 unit PO QDAY cap 10/25/17 duloxetine 20 mg capsule,delayed release 40 mg PO QDAY cap 10/25/17 atenolol 50 mg tablet 50 mg PO QHS 30 Days #30 12/27/17 Hydrochlorothiazide 12.5 mg PO DAILY 11/03/19 Mometasone/Formoterol [Dulera 200 Mcg/5 Mcg Inhaler] 2 puff IH BID 11/03/19 Pantoprazole Sodium [Protonix] 20 mg PO DAILY 11/03/19 Pregabalin [Lyrica] 75 mg PO TID 11/03/19 Loratadine [Claritin] 10 mg PO DAILY 11/08/19 traMADol [Ultram (G)] 100 mg PO Q6H PRN PRN 11/08/19 Ciprofloxacin [Cipro] 500 mg PO BID #6 tab 11/09/19 Hydrocodone/Acetaminophen [[place] 5-325 Tablet] 1 ea PO Q4H PRN PRN 5 Days tab 11/09/19 The following prescriptions were given: Ciprofloxacin [Cipro] 500 mg PO BID #6 tab Prescription Printed Hydrocodone/Acetaminophen [[place] 5-325 Tablet] 1 ea PO Q4H PRN PRN 5 Days tab PRN Reason: Pain Score 1-10/10 Prescription Printed Primary Care Physician: Raghav Torres MD [Primary Care Provider] - Test Results: Test results from this visit will be discussed in further detail at your follow- up appointment, if applicable. Please Follow Up With: González Taylor MD When: please call to make an appointment.
--- NOTE | 2019-11-09 13:25 | PCM.OPRPT ---
Report of Operation Date of Procedure: 11/09/19 Pre-Operative Diagnosis: Right proximal 8 mm ureteral calculi Post-Operative Diagnosis: The same Surgery/Procedure Performed:: Cystoscopy and right stent placement and right extracorporeal shockwave lithotripsy Description of Surgical Findings:: 79-year-old female with a stone in the proximal right ureter presents today for shockwave lithotripsy to to treat the stone. We discussed the procedure before the anesthesia and she understands how we will break the stone and she will need a stent and as well. Patient was taken back to the operating room after smooth induction of general anesthesia she was placed supine on the table with the legs in dorsolithotomy position, the urethra and vaginal area were prepped and draped in usual sterile fashion, went into the bladder with a 21 Vietnamese rigid cystourethroscope identified the right ureteral orifice cannulated this with a wire could see the wire go up into the kidney and passed a stone in the right UPJ area we then advanced a stent it was a 6 Vietnamese by 24 cm stent this push the stone back up into the kidney once a stent was in good position we pulled the wire the stent coiled in the kidney and bladder in good position. I did leave a string of the stent but cut it short. We then proceeded with shockwave lithotripsy. The stone was identified and placed in the F2 focal point of the shockwave lithotripter. We started with a rate of 90 shocks per minute and increased her power up to 7 kV. At the end of 2000 shockwaves a stone in almost disappear we pulled out the therapy had checked again was a few fragments in the mid pelvis. We proceeded with more shockwave therapy at the end of 3000 shockwaves appeared that the stone fragmented completely. Patient anesthetic was reversed plan to see her next week with a KUB and remove the stent. Type of Anesthesia:: General Drains: stent right side - Admit VTE Documentation VTE Present on Admission: No VTE Mechan Device Prophylaxis: SCD's
[2019-11-09 13:35] VITALS: BP 151/66; BP 172/80; PULSE 75; RESP 18; TEMP 36.4; O2SAT 94
[2019-11-09] MEDS: Ketorolac 15 MG/ML Vial IV (13:45)
[2019-11-09 13:46] VITALS: BP 151/66; BP 167/82; PULSE 74; RESP 18; O2SAT 94
[2019-11-09 13:57] VITALS: BP 146/76; BP 151/66; PULSE 74; RESP 18; TEMP 36.2; O2SAT 94
[2019-11-09 15:08] VITALS: BP 141/65; BP 151/66; PULSE 64; RESP 18; TEMP 36.4; O2SAT 97
== END 2019-11-09 15:15 | disposition home or self-care (01) ==
LOC: SDC 10:25 → AC 10:31
PROVIDERS: PCP Internal Medicine; Referring Provider Urology; Visit Provider Urology
PROC: (CPT 50590; principal; 2019-11-09 12:10)
DX: N20.1 Calculus of ureter (principal); I10 Essential (primary) hypertension; E78.00 Pure hypercholesterolemia, unspecified; J45.20 Mild intermittent asthma, uncomplicated; G25.81 Restless legs syndrome; K21.9 Gastro-esophageal reflux disease without esophagitis; F41.9 Anxiety disorder, unspecified; M06.9 Rheumatoid arthritis, unspecified; Z79.52 Long term (current) use of systemic steroids; Z79.899 Other long term (current) drug therapy
CPT/HCPCS: 50590; 52332; 74018; J7120; C1769; C2617; J2405

== ENCOUNTER → 2019-11-13 12:59 | Outpatient (CLI) | payer MEDICARE, SELFPAY ==
[2019-11-09 11:02] VITALS: BMI 26.9
--- NOTE | 2019-11-13 13:02 | RAD_ITS ---
STUDY: X-RAY - ABDOMEN/PELVIS REASON FOR EXAM: Female, 79 years old. stone removed, stent TECHNIQUE: Frontal view of the abdomen was performed COMPARISON: 09 November 2019 FINDINGS: Right ureteral stent is in place with proximal loop in the pelvis and distal loop in the urinary bladder. There are no urinary calculi detectable on plain films. There is no intestinal obstruction. Orally administered contrast is distributed in the descending colon. Osseous structures are intact with mild scoliosis and degenerative change in the lumbar spine. RAD/Abdomen Single View IMPRESSION: Expected appearance of right ureteral stent. No intestinal obstruction. Electronically Signed: Melania Lucia, at 19:26 EST Tel , Service support ,
== END ==
PROVIDERS: PCP Internal Medicine; Referring Provider Urology; Visit Provider Urology
DX: N20.0 Calculus of kidney (principal)
CPT/HCPCS: 74018

== ENCOUNTER 2019-11-13 18:02 | Observation (INO) | payer MEDICARE, SELFPAY ==
[2019-11-13 18:03] VITALS: BP 202/129; PULSE 77; RESP 18; TEMP 36.6; O2SAT 95; BMI 26.4
--- NOTE | 2019-11-13 18:30 | CT_ITS ---
We are attempting to reach an attending provider to discuss findings. An addendum with communication details will be sent when the communication is complete. STUDY: CT ABDOMEN AND PELVIS WITH CONTRAST REASON FOR EXAM: Female, 79 years old. RT ABD PAIN/URETERAL STENT REMOVED TODAY. RADIATION DOSAGE (If Supplied By Facility): CTDIvol = ( 13.61 ) mGy, DLP = ( 1298.86 ) mGycm TECHNIQUE: Transaxial images were obtained from the dome of the diaphragm to the symphysis pubis without oral contrast. Oral and amp; IV GASTROGRAFIN and amp; 100ML ISOVUE 300 was administered. Sagittal and coronal images were reconstructed. Individualized dose optimization techniques were used for this CT. COMPARISON: 11/03/2019. FINDINGS: The visualized lung bases are unremarkable. The visualized portions of the heart are within normal limits. Normal liver. There are multiple gallstones. Normal spleen. There is diffuse atrophy of the pancreas. Normal bilateral adrenal glands. There is extensive hydroureteronephrosis of the right kidney with hyperenhancement of the ureteral wall and a right perinephric fluid collection. Punctate renal stones are noted in the legs at the right lower pole measuring 1 to 2 mm. Increased attenuation is noted at the right ureterovesicular junction with several small stones located in this region. The entire right ureter is not assessed due to significant streak artifact from high attenuation material within the colon. Normal left kidney. Normal visualized stomach. Normal small intestine. Evaluation of the colon is limited secondary to high density material and associated streak artifact within the descending colon. There is apparent wall thickening and pericolonic stranding at the rectosigmoid colon. There is non-visualization of the appendix. Normal abdominal aorta. Normal inferior vena cava. Normal retroperitoneum. Normal urinary bladder. There is absence of the uterus consistent with a prior hysterectomy. Normal abdominal wall. Normal osseous structures. CT/Abdomen/Pelvis WITH Contrast IMPRESSION: Marked hydroureteronephrosis of the right kidney and collecting system with high attenuation material at the right ureterovesicular junction. A mass at the right ureterovesicular junction/posterior bladder is not excluded and correlation with direct visualization is recommended. There is also a small stone in this region measuring up to 4 mm. Wall thickening and pericolonic stranding at the rectosigmoid colon is nonspecific and may indicate an infectious or inflammatory process. Evaluation of the lower abdomen and pelvis is limited by high attenuation material within the distal colon and associated streak artifact. Findings discussed with Physician: Vandana Hyman by Dr. Barrett on 11/13/2019 9:56 PM via telephone. Electronically Signed: Chad Barrett, at 22:00 EST Tel , Service support ,
[2019-11-13] MEDS: 0.9% Normal Saline 1,000 ML 125 ML IV (18:52)
[2019-11-13] MEDS: Ondansetron 4 MG/2 ML Vial IV ×2 (18:52→21:33)
[2019-11-13] MEDS: HYDROmorphone 1 MG/ML Syringe IV (18:52)
[2019-11-13 18:53] LABS: Absolute Lymphocyte Count 1.56 X10^3/uL (0.83-4.51); Absolute Neutrophil Count 6.5 X10^3/uL (2.0-7.7); Basophil# 0.05 X10^3/uL; Basophil% 0.5 % (0-1); Eosinophils% 3.1 % (0-5); Hematocrit 41.7 % (37-47); Hemoglobin 13.2 g/dL (12.0-15.0); Lymphocyte # 1.56 X10^3/ul (4.0); Lymphocyte % 16.3 % (19-41); Mean Corp Hgb Conc 31.7 g/dL (32-36); Mean Corpuscular Hgb 30.6 pg (27.0-32.0); Mean Corpuscular Volume 96.8 fL (81-99); Mean Platelet Vol. 10.5 fl (6.2-12.0); Monocyte# 1.03 X10^3/uL; Monocyte% 10.8 % (0-10); NRBC Flagged by Analyzer 0 % (0-5); Neutrophil # 6.54 X10^3/uL (2.7-7.7); Neutrophil % 68.5 % (47-70); Platelet Count 220 K/mm3 (150-450); RBC Distribution Width CV 15.3 % (11.6-14.6); RBC Distribution Width SD 54.4 fl (35.1-43.9); Red Blood Count 4.31 M/mm3 (4.2-5.4); White Blood Count 9.6 K/mm3 (4.4-11.0)
[2019-11-13 18:57] VITALS: BP 176/78; PULSE 74; RESP 17; O2SAT 92
[2019-11-13 19:11] LABS: ALB/GLOB Ratio 1.1 RATIO (0.9-2.4); AST(SGOT) 21 U/L (15-37); Alanine Aminotransfer ALT/SGPT 34 U/L (13-56); Albumin, Serum 3.7 g/dL (3.2-5.0); Alkaline Phosphatase 133 U/L (45-117); Anion Gap 7 (5-15); BUN 18 mg/dL (7-18); BUN/Creat Ratio 21.5 RATIO (10-20); Calcium,Total 9.5 mg/dL (8.5-10.1); Chloride 104 mmol/L (98-107); Creatinine, Serum 0.84 mg/dL (0.55-1.02); EST Glomerular Filtration Rate 70 mL/min (>60); Est Glom Filt Rate - Afr Amer 85 mL/min (>60); Estimated Creatinine Clearance 48.43 ml/min; Globulin 3.4 g/dL (2.2-4.2); Glucose 131 mg/dL (74-106); Potassium 3.9 mmol/L (3.5-5.1); Protein, Total 7.1 g/dL (6.4-8.2); Sodium Level 140 mmol/L (136-145)
[2019-11-13 19:27] LABS: Lactic Acid 1.5 mmol/L (0.4-1.9)
[2019-11-13 19:46] LABS: Bacteria 0 SEEN /hpf (None Seen); Mucous, Urine 0 SEEN /hpf (<or=2+); Squamous Epithelial Cells - UA 0 SEEN /hpf (5-10)
[2019-11-13 19:47] LABS: Color, Urine Yellow (Yellow); Glucose, Dipstick Normal (Normal); Ketone-Dipstick Negative (Negative); Leukocyte Esterase-Dipstick Negative /ul (Negative); Nitrite-Dipstick Negative (Negative); Occult Blood-Urine 250 /ul (Negative); Protein-Dipstick 15 mg/dl (Negative); Specific Gravity, Urine 1.005 (1.002-1.030); Urine Bilirubin Dipstick Negative (Negative); Urine Clarity Clear (Clear); Urine Urobilinogen Normal (Normal); Urine pH 6.5 (5.0 - 8.0)
[2019-11-13 19:59] LABS: Red Blood Cells-Urine 0-5 SEEN /hpf (0-5); White Blood Cells 0-5 SEEN /hpf (0-5)
[2019-11-13 21:25] VITALS: BP 159/84; PULSE 74; RESP 15; O2SAT 94
[2019-11-13] MEDS: Morphine 4 MG/ML Syringe IV (21:33)
--- NOTE | 2019-11-13 22:20 | HP.PCM_ITS ---
Problem List (1) Hydroureteronephrosis Status: Acute (2) DDD (degenerative disc disease), lumbar Status: Chronic Comment: Post microdiscectomy at L2/L3 (3) Segmental and somatic dysfunction of pelvic region Status: Chronic (4) Hx of lumbar discectomy Status: Chronic (5) Segmental and somatic dysfunction of lumbar region Status: Chronic (6) Hypertriglyceridemia Status: Chronic (7) Hyperlipidemia Status: Chronic Qualifiers: Hyperlipidemia type: pure hypercholesterolemia Qualified Code(s): E78.00 - Pure hypercholesterolemia, unspecified; E78.0 - Pure hypercholesterolemia (8) Hypertension Status: Chronic Qualifiers: Hypertension type: essential hypertension Qualified Code(s): I10 - [place] l (primary) hypertension History of Present Illness Date of Admission: 11/13/19 Chief Complaint: right flank pain The patient is a 79 year old F with a significant history of fibromyalgia; upper lipidemia; hypertension; irritable bowel syndrome; restless leg syndrome; osteoporosis and rheumatoid arthritis who presented to emergency department with excruciating right flank pain. She describes her pain as sharp and constant.. She denies any aggravating factors. Her pain improves with walking. Pain radiates to her back. Associated with symptoms is nausea and vomiting. On the day of presentation she had a right ureteric stent approved earlier on. On the same day of presentation she had blood in the stool and also she had mucousy stool. Abdomen pelvis CT showed mild hydro-ureter nephrosis of the right kidney and collecting system with high attenuation material and the right uterovesical junction. Also a mass could not be excluded at the right uterovesical junction/posterior bladder. Of note on 11/09/2019 patient had a cystoscopy and right stent placement and right extracorporal shockwave lithotripsy for a right proximal 8 mm ureteral calculi. Past Medical History Past Medical History (Chronic Problems): Chronic Problems (Last Reviewed 11/14/19 @ 03:56 by Chirag Fontenot MD) DDD (degenerative disc disease), lumbar (Chronic) Post microdiscectomy at L2/L3 Segmental and somatic dysfunction of pelvic region (Chronic) Hx of lumbar discectomy (Chronic) Segmental and somatic dysfunction of lumbar region (Chronic) Hypertriglyceridemia (Chronic) Hyperlipidemia (Chronic) Hypertension (Chronic) Medical History: Medical History (Last Reviewed 11/14/19 @ 03:56 by Chirag Fontenot MD) Hypertriglyceridemia (Chronic) E78.1 Hyperlipidemia (Chronic) E78.5 Hypertension (Chronic) I10 Fibromyalgia M79.7 GERD (gastroesophageal reflux disease) K21.9 Glaucoma H40.9 IBS (irritable bowel syndrome) K58.9 Left sided sciatica M54.32 RLS (restless legs syndrome) G25.81 Senile osteoporosis M81.0 Seronegative rheumatoid arthritis 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 Allergies paroxetine Allergy (Verified 11/13/19 18:03) Other sulfamethoxazole [From ] Allergy (Verified 11/13/19 18:03) Unknown trimethoprim [From ] Allergy (Verified 11/13/19 18:03) Unknown Home Medications: Ambulatory Orders Medication Instructions Recorded Calcium (Elemental) [Caltrate-600] 600 mg PO QHS 11/04/14 Dextrin [Fiber] 625 gm PO DAILY 11/04/14 Dicyclomine HCl [Bentyl] 10 mg PO Q6H PRN PRN 11/04/14 Lactobacillus Combination No.4 1 ea PO DAILY 11/04/14 [Probiotic] Latanoprost 0.005% [Xalatan 1 drp EACH EYE QHS 11/04/14 Opthalmic] Leflunomide [Arava] 20 mg PO DAILY 11/04/14 Multivitamins,Therapeutic 1 tab PO DAILY 11/04/14 [Multivitamin] Baird-3 Fatty Acids/Fish Oil [Fish 1 ea PO MOWEFR 11/04/14 Oil 1,000 mg Capsule] Ropinirole HCl [Requip] 0.5 mg PO QHS 11/04/14 Timolol [Betimol] 1 drp EACH EYE QHS 11/04/14 traZODone [Desyrel] 25 mg PO QHS 11/04/14 atorvastatin 20 mg tablet 10 mg PO QHS tab 10/25/17 cholecalciferol (vitamin D3) 50 2,000 unit PO QDAY cap 10/25/17 mcg (2,000 unit) capsule duloxetine 20 mg capsule,delayed 40 mg PO QDAY cap 10/25/17 release atenolol 50 mg tablet 50 mg PO QHS 30 Days #30 12/27/17 Hydrochlorothiazide 12.5 mg PO DAILY 11/03/19 Mometasone/Formoterol [Dulera 200 2 puff IH BID 11/03/19 Mcg/5 Mcg Inhaler] Pantoprazole Sodium [Protonix] 40 mg PO DAILY 11/03/19 Pregabalin [Lyrica] 75 mg PO TID 11/03/19 Loratadine [Claritin] 10 mg PO DAILY 11/08/19 traMADol [Ultram (G)] 100 mg PO Q6H PRN PRN 11/08/19 Hydrocodone/Acetaminophen [[place] 1 ea PO Q4H PRN PRN 5 Days tab 11/09/19 5-325 Tablet] Albuterol IH (ProAir) [Proair Hfa] 1 puff IH Q6H PRN PRN 11/14/19 Bimatoprost 0.01% [Lumigan 0.01%] 1 drp EACH EYE DAILY 11/14/19 Ciprofloxacin [Cipro] 500 mg PO BID 11/14/19 Omeprazole 40 mg PO DAILY 11/14/19 Surgical History: Surgical History (Last Reviewed 11/01/19 @ 10:13 by Myrna Mayo) History of bladder suspension procedure Z92.89 History of bunionectomy of both great toes Z98.890 History of hysterectomy Z98.890, Z90.710 Surgical History: - - Hysterectomy tubal ligation Psychiatric History: No pertinent psych hx PHOTOGRAPHER ASSISTANT History: No pertinent PHOTOGRAPHER ASSISTANT history Smoking Status: Never smoker Alcohol: None - *Family History Paternal Family History: Family History (Last Reviewed 11/14/19 @ 03:56 by Cihrag Fontenot MD) Mother Heart disease Diabetes Brother Diabetes History Items: No pertinent history Review of Systems Constitutional: Denies: Chills, Fever, Weight Change HEENT: Denies: Head Aches, Sinus Congestion, Sinus Drainage Cardiovascular: Denies: Chest Pain, Palpitations Respiratory: Denies: Cough, Shortness of breath at rest, Sputum production Gastrointestinal: Reports: Nausea, Vomiting, - - Right flank pain Genitourinary: Denies: Dysuria Musculoskeletal: Reports: Back Pain. Denies: Joint Pain, Joint Tenderness Skin: Denies: Rash, Wounds Neurological: Denies: Numbness, Tingling, Focal weakness Psychiatric: Denies: Anxiety, Depression, Homicidal Ideations, Suicidal Ideations Hematologic/ Lymphatic: Denies: Easy Bruising, Easy Bleeding VTE Information - Inpt Only VTE Present on Admission: No VTE Mechan Device Prophylaxis: SCD's VTE Pharm Prophylaxis ordered?: No Patient Problems: Active and Suspected Problems (Last Reviewed 11/14/19 @ 03:56 by Chirag Fontenot MD) Hydroureteronephrosis (Acute) - Physical Exam Vitals/I&O's: Vital Signs Temp Pulse Resp BP Pulse Ox 98 F 74 15 159/84 H 94 11/13/19 18:03 11/13/19 21:25 11/13/19 21:25 11/13/19 21:25 11/13/19 21:25 Oxygen Delivery Method Room Air Weight: 69.853 kg Body Mass Index (BMI) 26.4 General: Alert, Oriented x3, Cooperative HEENT: Atraumatic, PERRLA, EOMI, Normocephalic Neck: Supple, No JVD, Negative Carotid Bruits Lungs: Clear to auscultation, Normal air movement Cardiovascular: Regular rate, No murmurs Abdomen: Bowel Sounds Present, Soft, Tender, - - Emergency department doctor reported rectal exams with no mass or gross stool. Extremities: No edema, Capillary Refill Less than 3 Seconds Skin: No rashes, No breakdown Musculoskeletal: No Tenderness to Palpation of Joints or Extremities Neurological: Cranial nerves II-XII grossly intact Psych/Mental Status: Normal Affect, Appropriate Laboratory Results 11/13/19 18:42: WBC 9.6, RBC 4.31, Hgb 13.2, Hct 41.7, MCV 96.8, MCH 30.6, MCHC 31.7 L, RDW Std Deviation 54.4 H, RDW Coeff of Irene 15.3 H, Plt Count 220, MPV 10.5, Immature Gran % (Auto) 0.800, Neut % (Auto) 68.5, Lymph % (Auto) 16.3 L, [place] % (Auto) 10.8 H, Eos % (Auto) 3.1, Baso % (Auto) 0.5, Absolute Neuts (auto) 6.5, Absolute Lymphs (auto) 1.56, Nucleated RBC % 0 11/13/19 18:42: Sodium 140, Potassium 3.9, Chloride 104, Carbon Dioxide 29.0, Anion Gap 7, BUN 18, Creatinine 0.84, Estim Creat Clear Calc 48.43, Est GFR (MDRD) Af Amer 85, Est GFR (MDRD) Non-Af 70, BUN/Creatinine Ratio 21.5 H, Glucose 131 H, Calcium 9.5, Total Bilirubin 0.50, AST 21, ALT 34, Alkaline Phosphatase 133 H, Total Protein 7.1, Albumin 3.7, Globulin 3.4, Albumin/Globulin Ratio 1.1 11/13/19 18:42: Lactic Acid 1.5 11/13/19 19:40: Urine Color Yellow, Urine Clarity Clear, Urine pH 6.5, Ur Specific [place] 1.005, Urine Protein 15 H, Urine Glucose (UA) Normal, Urine Ketones Negative, Urine Occult Blood 250 H, Urine Nitrite Negative, Urine Bilirubin Negative, Urine Urobilinogen Normal, Ur Leukocyte Esterase Negative, Urine RBC 0-5 SEEN, Urine WBC 0-5 SEEN, Ur Squamous Epith Cells 0 SEEN, Urine Bacteria 0 SEEN, Urine Mucus 0 SEEN Current Medications Sodium Chloride () 1,000 mls @ 125 mls/hr IV .Q8H MARY ANN Last Admin: 11/13/19 18:52 Dose: 125 mls/hr Documented by: Assessment/Plan All Active Problems (Last Reviewed 11/14/19 @ 03:56 by Chirag Fontenot MD) Hydroureteronephrosis (Acute) The patient is a 79 year old F with a significant history of fibromyalgia; upper lipidemia; hypertension; irritable bowel syndrome; restless leg syndrome; osteoporosis and rheumatoid arthritis who presented to emergency department with excruciating right flank pain; hematochezia and found to have a positive occult blood and with abdominal and pelvis CT showing mild hydroureteronephrosis and a probable mass at the right ureterovesicular junction/posterior bladder.. Hydroureteronephrosis and a probable mass at the right ureterovesicular junction/posterior bladder Abnormal urinalysis of urine occult blood and urine protein. Will keep patient n.p.o. and will hydrate. The case was discussed with Dr. Taylor, urologist who is very familiar with patient. Will consult Dr. Taylor. Home [place] PRN for moderate pain. Dilaudid for severe pain. Zofran as needed Hematochezia Patient with a history of IBS. On home Protonix p.o. daily we will escalate Protonix to 40 mg IV twice daily. We will trend H&H. If H&H is stable consider outpatient referral for colonoscopy. Rheumatoid arthritis Leflunomide continued Hypertension On presentation blood pressure was not within goal Hydrochlorothiazide continued Atenolol continued Hyperlipidemia Lipitor continued Leg syndrome Mirapex continued VT prophylaxis SCD ordered. Code Visit OBSV E&M: 13066 Initial observation care L3
--- NOTE | 2019-11-13 22:20 | ED.VISSUMM ---
- ER Visit Summary Date of Service: 11/13/19 Chief Complaint: [Abdominal pain] History of Present Illness: The patient is a 79 F [presents to the emergency department complaint of abdominal pain that started yesterday. Patient states the pain is gotten gradually worse today. She rates it currently as an 8 or 9 out of 10 involves the entire right side. Patient has history of recent kidney stone with a stent placed in her right ureter and stent removal today by urology. Patient also states that she has had some mucousy bloody stools since yesterday. Patient denies any fevers. Patient has history of irritable bowel syndrome.] Physical Examination: [HEENT-PERRLA, EOMI. Cranial nerves II through XII grossly intact. TMs clear. Mucous membranes moist. No adenopathy. Cardiovascular-regular rate and rhythm without murmur or ectopy Lungs-clear to auscultation, chest wall stable without crepitus or subcu emphysema Abdomen-normoactive bowel sounds, soft. Patient has tenderness palpation over right lower quadrant as well as right upper quadrant with guarding. There is no rebound, rigidity, or peritoneal signs. Rectal exam-no external lesions. No rectal masses. No significant stool in the rectal vault and no gross blood noted. Hemoccult pending. Extremities-intact ?4, normal range of motion, normal pulses, atraumatic] Test Results: [CBC with differential obtained showed a white blood cell count of 9.6, hemoglobin 13, hematocrit 42, placed 220. Chemistries unremarkable. LFTs were normal. Urinalysis was normal.] CT scan of the abdomen pelvis obtained showed mild hydroureter and hydronephrosis with some fluid around the right kidney. Patient also had some inflammatory changes of the rectosigmoid colon. Patient also had barium in the left side of the colon which caused significant artifact and limited the study. There was some debris at the right UVJ which may be remnant stone causing obstruction. Emergency Department Course and Treatment: [Patient was medicated with morphine and Zofran. Patient was given normal saline. Patient had to be remedicated with morphine or Zofran for persistent pain. Case was discussed with urologist who asked that we admit to medicine for pain control and he will see the patient to determine if another stent needed to be placed in the right ureter.] Treatment Plan: [Admit] Disposition: [Admit] Impression: [Intractable pain Right hydro-ureter and hydronephrosis Inflammatory changes of his rectosigmoid colon] This note was generated with [employer] dictation software. It may contain incorrect words, spelling, and punctuation that were not noted in review of the chart prior to signing ED Disposition - Plan for ED Patient: Referrals: Raghav Torres MD [Primary Care Provider] -
[2019-11-13 23:47] VITALS: BMI 28.4
[2019-11-13 23:55] VITALS: BMI 28.5
[2019-11-13 23:56] LABS: Prothrombin Time (Protime)PT. 12.7 SECONDS (11.7-14.9)
[2019-11-14] VITALS (16 sets, daily range): BP systolic 99–186; BP diastolic 44–81; PULSE 64–88; RESP 16–20; TEMP -12.6–37.2; O2SAT 92–100; BMI 28.5
[2019-11-14 00:21] LABS: Hemoglobin 13.7 g/dL (12.0-15.0)
[2019-11-14] MEDS: hydrALAZINE 20 MG/ML Vial 5 MG IV ×2 (00:53→06:39)
[2019-11-14] MEDS: Dicyclomine 10 MG Capsule PO ×2 (00:53→06:39)
[2019-11-14] MEDS: Pregabalin 75 MG Capsule PO ×2 (00:54→05:26)
[2019-11-14] MEDS: HYDROcodone Bitartrate/Apap 5/325 Tablet PO (00:54)
[2019-11-14] MEDS: 0.9% Saline Lock 10 ML Syringe IV ×4 (00:55→06:38)
[2019-11-14] MEDS: 0.9% Normal Saline 1,000 ML 100 ML IV ×2 (00:55→11:42)
[2019-11-14] MEDS: Pramipexole Di-HCl 0.25 MG Tablet PO (00:56)
[2019-11-14] MEDS: Atenolol 50 MG Tablet PO (00:56)
[2019-11-14] MEDS: Atorvastatin Calcium 10 MG Tablet PO (00:56)
[2019-11-14] MEDS: Latanoprost 0.005% 1 Bottle 1 DRP EACH EYE ×2 (00:58→23:02)
[2019-11-14] MEDS: Timolol 0.5% 5ML OPTH.BTL 1 DRP OPHTHALMIC ×2 (00:58→23:03)
[2019-11-14] MEDS: traZODone 50 MG Tablet 25 MG PO (01:11)
[2019-11-14] MEDS: HYDROmorphone 0.5 MG/0.5 ML SYRINGE IV ×2 (02:13→06:38)
[2019-11-14] MEDS: Ondansetron 4 MG/2 ML Vial IV (03:48)
[2019-11-14] MEDS: Albuterol 2.5 MG/3 ML VIAL.NEB. INHALATION ×2 (06:47→20:00)
[2019-11-14] MEDS: Budesonide Respules 0.5 MG/2 ML AMPUL.NEB. INHALATION ×2 (06:47→20:00)
--- NOTE | 2019-11-14 07:00 | PCM.CONS.B ---
- Consult Date of Consult: 11/14/19 79-year-old female underwent shockwave lithotripsy and treatment of kidney stones in the right side stent was removed yesterday she had several small fragments. Fragments were passing but now they are stuck in the distal right ureteral orifice she has hydronephrosis and hydroureter she came in with severe pain. We will make her n.p.o. now take her to surgery for cystoscopy and right stent placement.
[2019-11-14 07:44] LABS: Hematocrit 42.2 % (37-47); Hemoglobin 13.4 g/dL (12.0-15.0)
--- NOTE | 2019-11-14 09:21 | EKG12_ITS ---
Test Reason : PREOP Blood Pressure : / mmHG Vent. Rate : 065 BPM Atrial Rate : 065 BPM P-R Int : 142 ms QRS Dur : 068 ms QT Int : 442 ms P-R-T Axes : 012 -02 014 degrees QTc Int : 459 ms Normal sinus rhythm Normal ECG When compared with ECG of 05-NOV-2014 06:02, No significant change was found Confirmed by MARK VEGAS, RAFAEL ([id number]), editor house organ KOFI YOU ([id number]) on 11/19/2019 2:45:48 PM Referred By: BO Confirmed By:PIYUSH FLORES MD
--- NOTE | 2019-11-14 11:46 | PN_ITS ---
Patient Problems: Active and Suspected Problems (Last Reviewed 11/14/19 @ 03:56 by Chirag Fontenot MD) Hydroureteronephrosis (Acute) Reason for Visit: Right hydroureter secondary to stone fragment obstructing to the right UV junction status post lithotripsy. Objective: No fever or chills. Pulse ox 95% on 3 L of oxygen. Vitals/I&O's: Vital Signs Temp Pulse Resp BP Pulse Ox 98.2 F 78 20 H 186/81 H 96 11/14/19 06:45 11/14/19 06:47 11/14/19 06:47 11/14/19 06:45 11/14/19 06:47 Oxygen Flow Rate (L/min) 2 Oxygen Delivery Method Room Air Weight: 160 lb 11.472 oz Body Mass Index (BMI) 28.5 Intake and Output for Last 24 Hours 11/12/19 11/13/19 11/14/19 23:59 23:59 23:59 Intake Total 579.17 / 579.17 1220 / 1220 Output Total 700 / 700 Balance 579.17 / 579.17 520 / 520 General: Alert, Oriented x3, Cooperative, Lethargic HEENT: Atraumatic, PERRLA, EOMI, Normocephalic Oral: No Gingival or Mucosal Lesions/ Ulcerations, Dry Mucosa Neck: Supple, No JVD, Negative Carotid Bruits Lungs: Clear to auscultation, Normal air movement, Diminished Cardiovascular: Regular rate, No murmurs Abdomen: Bowel Sounds Present, Soft, Non-Distended, Tender - Tenderness present over right side of flank and abdomen. No rebound tenderness. No guarding/rigidity. Extremities: No edema, Capillary Refill Less than 3 Seconds Skin: No rashes, No breakdown Musculoskeletal: No Tenderness to Palpation of Joints or Extremities Neurological: Cranial nerves II-XII grossly intact Psych/Mental Status: Normal Affect, Appropriate Microbiology Past 72 Hours 11/13/19 22:31 Stool Stool Occult Blood (ZANA) - Final Occult Blood Positive Laboratory Results 11/13/19 18:42: WBC 9.6, RBC 4.31, Hgb 13.2, Hct 41.7, MCV 96.8, MCH 30.6, MCHC 31.7 L, RDW Std Deviation 54.4 H, RDW Coeff of Irene 15.3 H, Plt Count 220, MPV 10.5, Immature Gran % (Auto) 0.800, Neut % (Auto) 68.5, Lymph % (Auto) 16.3 L, [place] % (Auto) 10.8 H, Eos % (Auto) 3.1, Baso % (Auto) 0.5, Absolute Neuts (auto) 6.5, Absolute Lymphs (auto) 1.56, Nucleated RBC % 0 11/13/19 18:42: Sodium 140, Potassium 3.9, Chloride 104, Carbon Dioxide 29.0, Anion Gap 7, BUN 18, Creatinine 0.84, Estim Creat Clear Calc 48.43, Est GFR (MDRD) Af Amer 85, Est GFR (MDRD) Non-Af 70, BUN/Creatinine Ratio 21.5 H, Glucose 131 H, Calcium 9.5, Total Bilirubin 0.50, AST 21, ALT 34, Alkaline Phosphatase 133 H, Total Protein 7.1, Albumin 3.7, Globulin 3.4, Albumin/Globulin Ratio 1.1 11/13/19 18:42: Lactic Acid 1.5 11/13/19 18:42: PT 12.7, INR 1.0 11/13/19 19:40: Urine Color Yellow, Urine Clarity Clear, Urine pH 6.5, Ur Sp ecific [place] 1.005, Urine Protein 15 H, Urine Glucose (UA) Normal, Urine Ketones Negative, Urine Occult Blood 250 H, Urine Nitrite Negative, Urine B ilirubin Negative, Urine Urobilinogen Normal, Ur Leukocyte Esterase Negative, Urine RBC 0-5 SEEN, Urine WBC 0-5 SEEN, Ur Squamous Epith Cells 0 SEEN, Urine Bacteria 0 SEEN, Urine Mucus 0 SEEN 11/14/19 00:13: Hgb 13.7, Hct 43.0 11/14/19 07:35: Hgb 13.4, Hct 42.2 Current Medications Hydrocodone Bitart/Acetaminophen ([place] 5mg-325mg) 1 tablet PO Q4H PRN PRN PRN Reason: Pain Score 4-5/10 Last Admin: 11/14/19 00:54 Dose: 1 tablet Documented by: Albuterol Sulfate (Ventolin Aerosols) 2.5 mg INHALATION Q6HWA.RT [facility] Last Admin: 11/14/19 06:47 Dose: 2.5 mg Documented by: Atenolol (Tenormin (Beta Charo)) 50 mg PO QHS [facility] Last Admin: 11/14/19 00:56 Dose: 50 mg Documented by: Atorvastatin Calcium (Lipitor) 10 mg PO QHS [facility] Last Admin: 11/14/19 00:56 Dose: 10 mg Documented by: Budesonide (Pulmicort Aerosol) 0.5 mg INHALATION Q12H.RT [facility] Last Admin: 11/14/19 06:47 Dose: 0.5 mg Documented by: Calcium Carbonate (Os-Curt 500) 500 mg PO QHS [facility] Cholecalciferol (Vitamin D) 2,000 unit PO DAILY [facility] Dicyclomine HCl (Bentyl) 10 mg PO Q6H PRN PRN PRN Reason: AB PAIN Last Admin: 11/14/19 06:39 Dose: 10 mg Documented by: Duloxetine HCl (Cymbalta) 40 mg PO DAILY [facility] Glucagon () 1 mg IM .X1 PRN PRN Reason: Hypoglycemia Hydralazine HCl (Apresoline Iv) 5 mg IV Q6H PRN PRN PRN Reason: SBP > 160 Last Admin: 11/14/19 06:39 Dose: 5 mg Documented by: Hydrochlorothiazide () 12.5 mg PO DAILY [facility] Hydromorphone HCl (Dilaudid Inj) 0.5 mg IV Q4H PRN PRN PRN Reason: Pain Score 6-10/10 Last Admin: 11/14/19 06:38 Dose: 0.5 mg Documented by: Sodium Chloride () 1,000 mls @ 100 mls/hr IV .Q10H [facility] Last Admin: 11/14/19 11:42 Dose: 100 mls/hr Documented by: Pantoprazole Sodium 40 mg/ (Sodium Chloride) 110 mls @ 330 mls/hr IV Q12 [facility] Last Infusion: 11/14/19 09:21 Dose: Infused Documented by: Dextrose (Dextrose 10%-Water) 250 mls @ 999 mls/hr IV .Q16M PRN; Protocol PRN Reason: HYPOGLYCEMIA Sodium Chloride () 250 mls @ 15 mls/hr IV .[id number] PRN PRN Reason: Saline Flush Latanoprost (Xalatan Opthalmic) 1 drop EACH EYE QHS [facility] Last Admin: 11/14/19 00:58 Dose: 1 drop Documented by: Leflunomide (Leflunomide) 20 mg PO QHS [facility] Loratadine (Claritin) 10 mg PO DAILY [facility] Multivitamins ([facility]itamin) [facility] Last Admin: 11/14/19 08:44 Dose: Not Given Documented by: Ondansetron HCl (Zofran) 4 mg IV Q6H PRN PRN PRN Reason: NAUSEA/VOMITING Last Admin: 11/14/19 03:48 Dose: 4 mg Documented by: Pramipexole Dihydrochloride (Mirapex) 0.25 mg PO QHS [facility] Last Admin: 11/14/19 00:56 Dose: 0.25 mg Documented by: Pregabalin (Lyrica) 75 mg PO TID [facility] Last Admin: 11/14/19 05:26 Dose: 75 mg Documented by: Sodium Chloride () 10 - 40 ml IV UD PRN PRN Reason: SALINE FLUSH Last Admin: 11/14/19 06:38 Dose: 10 ml Documented by: Timolol Maleate (Timoptic) 1 drop OPHTHALMIC QHS [facility] Last Admin: 11/14/19 00:58 Dose: 1 drop Documented by: Trazodone HCl (Desyrel) 25 mg PO QHS [facility] Last Admin: 11/14/19 01:11 Dose: 25 mg Documented by: Medical Necessity - Tobacco Use Smoking Status: Never smoker Assessment/Plan All Active Problems (Last Reviewed 11/14/19 @ 03:56 by Chirag Fontenot MD) Hydroureteronephrosis (Acute) The patient is a 79 year old F with a significant history of fibromyalgia; dyslipidemia; hypertension; irritable bowel syndrome; restless leg syndrome; osteoporosis and rheumatoid arthritis who is being admitted on [facility] floor from ER with excruciating right flank pain; hematochezia and found to have a positive occult blood and with abdominal and pelvis CT showing mild hydroureteronephrosis and a probable mass at the right ureterovesicular junction/posterior bladder. UA UA shows RBC 0-5 cells with occult blood 250. Patient complain of mild hematuria. 1. Right-sided kidney stone status post shockwave lithotripsy complicating into hydroureteronephrosis and a right ureterovesicular junction/posterior bladder obstruction, most probably by 4 mm small stone fragment. A mass at the right UV junction/posterior bladder not excluded. Patient seen by urologist. Patient and cystoscopy, right ureteroscopy basket extraction of stone fragment, right retrograde pyelogram and right ureteric stent placement. Abnormal urinalysis of urine occult blood and urine protein. On IV fluid. Home [place] PRN for moderate pain. Dilaudid for severe pain. Zofran as needed 2. Hematochezia Patient with a history of IBS. On home Protonix p.o. daily we will escalate Protonix to 40 mg IV twice daily. H&H stable. Consider outpatient referral for colonoscopy. Patient did not had bowel movement since yesterday. 3. Rheumatoid arthritis Hold leflunomide, NSAID as patient having bleeding Hypertension: Blood pressure is controlled. Most recent on the lower side 109/44, 112/57 On antihypertensive medications with holding parameters. Hold HCTZ. Continue atenolol Hyperlipidemia Lipitor continued Leg syndrome Mirapex continued VT prophylaxis SCD ordered Total time of the visit including total time spent in counseling or coordination of care, (more than 50% of the total time, spent in obtaining medical information from nurses and other ancillary care providers), coordination of care with residential property consultant, discussion with patient and patient's and nursing staff, review of labs and imaging is 30 minutes Clinical Impression(s) from Imaging Studies Abdomen/Pelvis CT 11/13/19 18:30 IMPRESSION: Marked hydroureteronephrosis of the right kidney and collecting system with high attenuation material at the right ureterovesicular junction. A mass at the right ureterovesicular junction/posterior bladder is not excluded and correlation with direct visualization is recommended. There is also a small stone in this region measuring up to 4 mm. Wall thickening and pericolonic stranding at the rectosigmoid colon is nonspecific and may indicate an infectious or inflammatory process. Evaluation of the lower abdomen and pelvis is limited by high attenuation material within the distal colon and associated streak artifact. Code Visit Inpatient E&M: 70940 Subs Hosp L3
--- NOTE | 2019-11-14 14:28 | OP.PCM_ITS ---
Report of Operation Date of Procedure: 11/14/19 Pre-Operative Diagnosis: Status post right ESWL and stent removal presented with Steinstrasse and obstruction of stones in the distal right ureter Post-Operative Diagnosis: The same Surgery/Procedure Performed:: Cystoscopy, right ureteroscopy basket extraction of stone fragments, right retrograde pyelogram interpretation fluoroscopic images, and right stent placement Description of Surgical Findings:: 79-year-old female who underwent treatment for stone in the kidney after shockwave lithotripsy a stent was placed the stone look like it broke up really well in the office she is doing fairly well we pulled out the stent and then later that day she presented to the emergency room with severe right renal colic CAT scan was done demonstrated hydronephrosis and hydroureter with multiple little stone fragments in the distal right ureter. She was admitted for pain control. Take the patient today for surgery for stage related procedure to the prior ESWL she has multiple fragments of distal ureter that failed to pass on their own and today we do extraction of the stones and will place a new stent. Patient was taken back to the operating room after smooth induction of general anesthesia she was placed in dorsolithotomy position, the urethra and vaginal area were prepped and draped in usual sterile fashion, went into the bladder with a 21 [place] rigid cystoscope cannulated the right ureteral orifice with a Pollick catheter and a Glidewire advance a wire up in the kidney and a Pollack catheter was well performed a retrograde pyelogram to see contrast up in the kidney there was significant hydronephrosis and a hydronephrotic drip. I then advanced a PTFE wire up into the kidney left is wire in place a safety wire and then loaded up Pollick catheter and then over the Pollick catheter went in with a rigid cystourethroscope and cannulated the right ureteral orifice with a Pollick catheter and a Glidewire left the wire in place and then over the Glidewire went in with a SlimLine offset Olympus ureteroscope, and 7.4 [place]. Was able to get in the ureter quite easily I then encountered the stones in the distal ureter these were then basketed with a flexible night nitinol tipless basket from [employer]. After the stones were basketed out the distal ureter then over the wire I advanced a new stent up into the kidney when the stent coiled in proper position kidney bladder I drained the bladder and will leave the stent until next week patient's anesthetic was reversed and she taken back to PACU in good condition. Type of Anesthesia:: General Drains: stent right side. - Admit VTE Documentation VTE Present on Admission: No VTE Mechan Device Prophylaxis: SCD's
[2019-11-14] MEDS: Lactated Ringers 1,000 ML 100 ML IV ×2 (14:30→17:37)
[2019-11-14 16:02] LABS: Hematocrit 38.2 % (37-47); Hemoglobin 11.3 g/dL (12.0-15.0)
[2019-11-15] VITALS (7 sets, daily range): BP systolic 124–149; BP diastolic 57–78; PULSE 85–101; RESP 16–18; TEMP 37.1; O2SAT 92–97
[2019-11-15] MEDS: Lactated Ringers 1,000 ML 100 ML IV ×2 (02:55→12:01)
[2019-11-15] MEDS: HYDROcodone Bitartrate/Apap 5/325 Tablet PO ×3 (02:55→14:07)
[2019-11-15] MEDS: Pregabalin 75 MG Capsule PO ×2 (05:43→14:08)
[2019-11-15 05:52] LABS: Absolute Lymphocyte Count 0.43 X10^3/uL (0.83-4.51); Absolute Neutrophil Count 7.4 X10^3/uL (2.0-7.7); Hematocrit 30.9 % (37-47); Hemoglobin 9.8 g/dL (12.0-15.0); Lymphocyte # 0.43 X10^3/ul (4.0); Lymphocyte % 5.1 % (19-41); Mean Corp Hgb Conc 31.7 g/dL (32-36); Mean Corpuscular Hgb 30.9 pg (27.0-32.0); Mean Corpuscular Volume 97.5 fL (81-99); Mean Platelet Vol. 10.8 fl (6.2-12.0); Monocyte# 0.46 X10^3/uL; Monocyte% 5.5 % (0-10); NRBC Flagged by Analyzer 0 % (0-5); Neutrophil # 7.43 X10^3/uL (2.7-7.7); Neutrophil % 88.9 % (47-70); POSITIVE DIFFERENTIAL YES; Platelet Count 168 K/mm3 (150-450); RBC Distribution Width CV 15.8 % (11.6-14.6); RBC Distribution Width SD 56.4 fl (35.1-43.9); Red Blood Count 3.17 M/mm3 (4.2-5.4); White Blood Count 8.4 K/mm3 (4.4-11.0)
[2019-11-15 06:12] LABS: Anion Gap 6 (5-15); BUN 16 mg/dL (7-18); BUN/Creat Ratio 21.2 RATIO (10-20); Calcium,Total 8.5 mg/dL (8.5-10.1); Chloride 113 mmol/L (98-107); Creatinine, Serum 0.76 mg/dL (0.55-1.02); EST Glomerular Filtration Rate 79 mL/min (>60); Est Glom Filt Rate - Afr Amer 95 mL/min (>60); Estimated Creatinine Clearance 37.26 ml/min; Glucose 214 mg/dL (74-106); Sodium Level 144 mmol/L (136-145)
[2019-11-15 06:25] LABS: Differential Indicated SCAN CRITERIA MET
[2019-11-15 06:34] LABS: Differential Comment SCANNED
[2019-11-15] MEDS: Albuterol 2.5 MG/3 ML VIAL.NEB. INHALATION (07:03)
[2019-11-15] MEDS: Budesonide Respules 0.5 MG/2 ML AMPUL.NEB. INHALATION (07:03)
--- NOTE | 2019-11-15 07:24 | PCM.PN.BLA ---
Progress Note Status post ureteroscopy and basket extraction of stones in the distal ureter, all the stones were small just were stuck in distal ureter and she was not able to pass some after extracting the stone she had good drainage from the kidney but a stent in. Told the patient she can follow-up with me next week to have the stent removed. STROKE Vital Signs/Narrative: Vital Signs Pulse BP 11/15/20 05:43 92 127/58 H
[2019-11-15] MEDS: Loratadine 10 MG Tablet PO (07:59)
[2019-11-15] MEDS: DULoxetine Hcl 20 MG Capsule 40 MG PO (07:59)
[2019-11-15] MEDS: Multivitamins,Therapeutic Tablet 1 TABLET PO (07:59)
--- NOTE | 2019-11-15 10:55 | PCM.DC ---
- Discharge Diagnoses Current Active Problems: Current Active and Chronic Problems (Last Reviewed 11/14/19 @ 03:[address] Chirag Fontenot MD) Hydroureteronephrosis (Acute) You will use the following diet at home:: Cardiac Your food should be the consistency of: Regular Discharge Activity: May Not Drive Weight Bearing Status: Weight bearing as tolerated Call your doctor if you observe: Fever of 101 or Higher, Coldness, Increased Pain, Change in Color, Inability to urinate, Using more than one pad per hour, Shortness of breath, Dizziness, Fainting spells, Swelling in the ankles, Chest pain, Prolonged hiccoughing, Increased palpitations (irregular heartbeat), Calf discomfort, Uncontrolled pain Allergies/Adverse Reactions: Allergies paroxetine Allergy (Verified 11/13/19 23:59) Other trembling sulfamethoxazole [From Mayra] Allergy (Verified 11/13/19 23:59) Other trembling trimethoprim [From ] Allergy (Verified 11/13/19 18:03) Unknown Medications to take at Discharge Calcium (Elemental) [Caltrate-600] 600 mg PO QHS 11/04/14 Dextrin [Fiber] 625 gm PO DAILY 11/04/14 Dicyclomine HCl [Bentyl] 10 mg PO Q6H PRN PRN 11/04/14 Lactobacillus Combination No.4 [Probiotic] 1 ea PO DAILY 11/04/14 Latanoprost 0.005% [Xalatan Opthalmic] 1 drp EACH EYE QHS 11/04/14 Leflunomide [Arava] 20 mg PO DAILY 11/04/14 Multivitamins,Therapeutic [Multivitamin] 1 tab PO DAILY 11/04/14 [place]-3 Fatty Acids/Fish Oil [Fish Oil 1,000 mg Capsule] 1 ea PO MOWEFR 11/04/14 Ropinirole HCl [Requip] 0.5 mg PO QHS 11/04/14 Timolol [Betimol] 1 drp EACH EYE QHS 11/04/14 traZODone [Desyrel] 25 mg PO QHS 11/04/14 atorvastatin 20 mg tablet 10 mg PO QHS tab 10/25/17 cholecalciferol (vitamin D3) 50 mcg (2,000 unit) capsule 2,000 unit PO QDAY cap 10/25/17 duloxetine 20 mg capsule,delayed release 40 mg PO QDAY cap 10/25/17 atenolol 50 mg tablet 50 mg PO QHS 30 Days #30 12/27/17 Hydrochlorothiazide 12.5 mg PO DAILY 11/03/19 Mometasone/Formoterol [Dulera 200 Mcg/5 Mcg Inhaler] 2 puff IH BID 11/03/19 Pantoprazole Sodium [Protonix] 40 mg PO DAILY 11/03/19 Pregabalin [Lyrica] 75 mg PO TID 11/03/19 Loratadine [Claritin] 10 mg PO DAILY 11/08/19 traMADol [Ultram] 100 mg PO Q6H PRN PRN 11/08/19 Hydrocodone/Acetaminophen [[place] 5-325 Tablet] 1 ea PO Q4H PRN PRN 5 Days tab 11/09/19 Albuterol IH (ProAir) [Proair Hfa] 1 puff IH Q6H PRN PRN 11/14/19 Bimatoprost 0.01% [Lumigan 0.01%] 1 drp EACH EYE DAILY 11/14/19 Ciprofloxacin [Cipro] 500 mg PO BID 11/14/19 Omeprazole 40 mg PO DAILY 11/14/19 Primary Care Physician: Raghav Torres MD [Primary Care Provider] - Please follow up with your Primary Care Physician in: in 2 weeks to control BP Test Results: Test results from this visit will be discussed in further detail at your follow-up appointment, if applicable. Please Follow Up With: González Taylor MD When: NEXT week, within 1 week
--- NOTE | 2019-11-15 11:22 | EKG12_ITS ---
Test Reason : CP Blood Pressure : / mmHG Vent. Rate : 084 BPM Atrial Rate : 084 BPM P-R Int : 160 ms QRS Dur : 072 ms QT Int : 380 ms P-R-T Axes : 058 018 046 degrees QTc Int : 449 ms Normal sinus rhythm Normal ECG When compared with ECG of 14-NOV-2019 11:31, MANUAL COMPARISON REQUIRED, DATA IS UNCONFIRMED Confirmed by MARK VEGAS, RAFAEL ([id number]), field map editor KOFI YOU ([id number]) on 11/19/2019 2:45:35 PM Referred By: BO Confirmed By:PIYUSH FLORES MD
--- NOTE | 2019-11-15 11:24 | NURSING ---
DR HARVEY HERE SEEING PT. PT TOLD CHEST HAS BEEN HURTING SINCE SURGERY YESTERDAY. NEW ORDERS RECEIVED. HOLD DISCHARGE FOR NOW.
--- NOTE | 2019-11-15 12:28 | CASEMGMT ---
DAPHNIE GONZALES NOTE: To room to review POPE form. Pt resting in bed, @ bedside. POPE form reviewed and they deny having questions. POPE form signed by pt, copy made and placed on chart, and original given to pt. Elidia NUNEZ RN CM
[2019-11-15] MEDS: hydrALAZINE 25 MG Tablet PO (14:08)
--- NOTE | 2019-11-15 14:11 | PCM.DC.SUM ---
Discharge Date and Diagnosis - Problem List Patient Problems: Active and Suspected Problems (Last Reviewed 11/14/19 @ 03:[address] Chirag Fontenot MD) Hydroureteronephrosis (Acute) Date of Admission: 11/13/19 Date of Discharge: 11/15/19 - Primary Discharge Diagnosis Active and Suspected Problems (Last Reviewed 11/14/19 @ 03:[address] Chirag Fontenot MD) Hydroureteronephrosis (Acute) - Secondary Discharge Diagnosis Chronic Problems (Last Reviewed 11/14/19 @ 03:[address] Chirag Fontenot MD) DDD (degenerative disc disease), lumbar (Chronic) Post microdiscectomy at L2/L3 Segmental and somatic dysfunction of pelvic region (Chronic) Hx of lumbar discectomy (Chronic) Segmental and somatic dysfunction of lumbar region (Chronic) Hypertriglyceridemia (Chronic) Hyperlipidemia (Chronic) Hypertension (Chronic) Hospital Course and Treatment Operations: None Summary of Care Provided: [] The patient is a 79 year old F with a significant history of fibromyalgia; dyslipidemia; hypertension; irritable bowel syndrome; restless leg syndrome; osteoporosis and rheumatoid arthritis who is being admitted on [facility] from ER with excruciating right flank pain; hematochezia and found to have a positive occult blood and with abdominal and pelvis CT showing mild hydroureteronephrosis and a probable mass at the right ureterovesicular junction/posterior bladder. UA UA shows RBC 0-5 cells with occult blood 250. Patient complain of mild hematuria. 1. Right-sided kidney stone status post shockwave lithotripsy complicating into hydroureteronephrosis and a right ureterovesicular junction/posterior bladder obstruction, most probably by 4 mm small stone fragment. A mass at the right UV junction/posterior bladder not excluded. Patient seen by urologist. Patient and cystoscopy, right ureteroscopy basket extraction of stone fragment, right retrograde pyelogram and right ureteric stent placement. Abnormal urinalysis of urine occult blood and urine protein. UA is negative of pyuria, hematuria. UTI ruled out. Patient just finished ciprofloxacin on November 09. Does not need further antibiotic as UA is negative. 2. Atypical chest pressure mostly secondary to anxiety: patient had 2 EKGs done which shows normal sinus rhythm with no significant change from the previous EKG at time of admission. No ST elevation suggestive of ischemia. 2 serial troponins are negative. Acute coronary syndrome ruled out Patient can have nuclear stress test as an outpatient. 2. Hematochezia Patient with a history of IBS. On home Protonix p.o. daily we will escalate Protonix to 40 mg IV twice daily. H&H stable. Consider outpatient referral for colonoscopy. 3. Rheumatoid arthritis Leflunomide resumed. Hypertension: Blood pressure is controlled. Most recent on the lower side 109/44, 112/57 On antihypertensive medications with holding parameters. Hold HCTZ. Continue atenolol Hyperlipidemia Lipitor continued Leg syndrome Mirapex continued DVT prophylaxis SCD ordered Discharge medication reconciliation done. Discharge follow-up instructions completed. Discharge process discussed with the patient and all questions were answered to patient's satisfaction. Total time spent, exact 35 minutes on discharge meds reconciliation, examination, coordination of care with nurses and ancillary staff, review of imaging and blood test and discussion with the patient on follow-up instructions Patient Problems: Active and Suspected Problems (Last Reviewed 11/14/19 @ 03:[address] Chirag Fontenot MD) Hydroureteronephrosis (Acute) Subjective: Patient complained of mild chest pressure when she woke up about 7 AM, still persistent when I rounded about 9 AM. Twelve-lead EKG was done and shows normal sinus rhythm at 84 bpm. No change from the previous EKG normal sinus rhythm. 2 sets of troponin every 4 hourly ordered. Objective: General: Alert, Oriented x3, Cooperative, HEENT: Atraumatic, PERRLA, EOMI, Normocephalic Oral: No Gingival or Mucosal Lesions/ Ulcerations, Dry Mucosa Neck: Supple, No JVD, Negative Carotid Bruits Lungs: Clear to auscultation, Normal air movement, Diminished Cardiovascular: Regular rate, No murmurs Abdomen: Bowel Sounds Present, Soft, Non-Distended, mild Tenderness present over right side of flank and abdomen. No rebound tenderness. No guarding/rigidity. Extremities: No edema, Capillary Refill Less than 3 Seconds Skin: No rashes, No breakdown Musculoskeletal: No Tenderness to Palpation of Joints or Extremities Neurological: Cranial nerves II-XII grossly intact Psych/Mental Status: Normal Affect, Appropriate - Physical Exam Vitals/I&O's: Vital Signs Temp Pulse Resp BP Pulse Ox 98.8 F 101 H 18 149/78 H 96 11/15/19 13:57 11/15/19 14:08 11/15/19 13:57 11/15/19 14:08 11/15/19 13:57 Oxygen Flow Rate (L/min) 2 Oxygen Delivery Method Room Air Weight: 160 lb 11.472 oz Body Mass Index (BMI) 28.5 Intake and Output for Last 24 Hours 11/13/19 11/14/19 11/15/19 23:59 23:59 23:59 Intake Total 579.17 / 579.17 3001.67 / 3251.67 2800 / 2800 Output Total 700 / 1000 1200 / 1200 Balance 579.17 / 579.17 2301.67 / 2251.67 1600 / 1600 General: Alert, Oriented x3, Cooperative HEENT: Atraumatic, PERRLA, EOMI, Normocephalic Neck: Supple, No JVD, Negative Carotid Bruits Lungs: Clear to auscultation, Normal air movement Cardiovascular: Regular rate, No murmurs Abdomen: Bowel Sounds Present, Soft, Non-Distended Extremities: No edema, Capillary Refill Less than 3 Seconds Skin: No rashes, No breakdown Musculoskeletal: No Tenderness to Palpation of Joints or Extremities Neurological: Cranial nerves II-XII grossly intact Psych/Mental Status: Normal Affect, Appropriate Microbiology Past 72 Hours 11/13/19 22:31 Stool Stool Occult Blood (ZANA) - Final Occult Blood Positive Laboratory Results 11/14/19 15:40: Hgb 11.3 L, Hct 38.2 11/15/19 05:35: WBC 8.4, RBC 3.17 L, Hgb 9.8 L, Hct 30.9 L, MCV 97.5, MCH 30.9, MCHC 31.7 L, RDW Std Deviation 56.4 H, RDW Coeff of Irene 15.8 H, Plt Count 168, MPV 10.8, Immature Gran % (Auto) 0.500, Neut % (Auto) 88.9 H, Lymph % (Auto) 5.1 L, [place] % (Auto) 5.5, Eos % (Auto) 0.0, Baso % (Auto) 0.0, Absolute Neuts (auto) 7.4, Absolute Lymphs (auto) 0.43 L, Nucleated RBC % 0, Differential Comment SCANNED 11/15/19 05:35: Sodium 144, Potassium 4.0, Chloride 113 H, Carbon Dioxide 25.0, Anion Gap 6, BUN 16, Creatinine 0.76, Estim Creat Clear Calc 37.26, Est GFR (MDRD) Af Amer 95, Est GFR (MDRD) Non-Af 79, BUN/Creatinine Ratio 21.2 H, Glucose 214 H, Calcium 8.5 11/15/19 12:00: Troponin I < 0.015 Current Medications Hydrocodone Bitart/Acetaminophen ([place]yle 5mg-325mg) 1 tablet PO Q4H PRN PRN PRN Reason: Pain Score 4-5/10 Last Admin: 11/15/19 14:07 Dose: 1 tablet Documented by: Albuterol Sulfate (Ventolin Aerosols) 2.5 mg INHALATION Q6HWA.RT [facility] Last Admin: 11/15/19 07:03 Dose: 2.5 mg Documented by: Atenolol (Tenormin (Beta Charo)) 50 mg PO QHS [facility] Last Admin: 11/14/19 22:54 Dose: Not Given Documented by: Atorvastatin Calcium (Lipitor) 10 mg PO QHS [facility] Last Admin: 11/14/19 21:39 Dose: Not Given Documented by: Budesonide (Pulmicort Aerosol) 0.5 mg INHALATION Q12H.RT [facility] Last Admin: 11/15/19 07:03 Dose: 0.5 mg Documented by: Calcium Carbonate (Os-Curt 500) 500 mg PO QHS [facility] Last Admin: 11/14/19 21:39 Dose: Not Given Documented by: Cholecalciferol (Vitamin D) 2,000 unit PO DAILY [facility] Last Admin: 11/15/19 08:00 Dose: 2,000 unit Documented by: Dicyclomine HCl (Bentyl) 10 mg PO Q6H PRN PRN PRN Reason: AB PAIN Last Admin: 11/14/19 06:39 Dose: 10 mg Documented by: Duloxetine HCl (Cymbalta) 40 mg PO DAILY [facility] Last Admin: 11/15/19 07:59 Dose: 40 mg Documented by: Glucagon () 1 mg IM .X1 PRN PRN Reason: Hypoglycemia Hydralazine HCl (Apresoline Iv) 10 mg IV Q6H PRN PRN PRN Reason: SBP > 180 Hydralazine HCl (Apresoline) 25 mg PO TID [facility] Last Admin: 02/20/20 14:08 Dose: 25 mg Documented by: Hydromorphone HCl (Dilaudid Inj) 0.5 mg IV Q4H PRN PRN PRN Reason: Pain Score 6-10/10 Last Admin: 11/14/19 06:38 Dose: 0.5 mg Documented by: Pantoprazole Sodium 40 mg/ (Sodium Chloride) 110 mls @ 330 mls/hr IV Q12 [facility] Last Infusion: 11/15/19 10:15 Dose: Infused Documented by: Dextrose (Dextrose 10%-Water) 250 mls @ 999 mls/hr IV .Q16M PRN; Protocol PRN Reason: HYPOGLYCEMIA Sodium Chloride () 250 mls @ 15 mls/hr IV .[id number] PRN PRN Reason: Saline Flush Lactated Ringer's () 1,000 mls @ 100 mls/hr IV .Q10H [facility] Last Admin: 11/15/19 12:01 Dose: 100 mls/hr Documented by: Latanoprost (Xalatan Opthalmic) 1 drop EACH EYE QHS [facility] Last Admin: 11/14/19 23:02 Dose: 1 drop Documented by: Loratadine (Claritin) 10 mg PO DAILY [facility] Last Admin: 11/15/19 07:59 Dose: 10 mg Documented by: [facility]it[facility] ([facility]) [facility] Last Admin: 11/15/19 07:59 Dose: 1 tablet Documented by: Nitroglycerin (Nitrostat) 0.4 mg SUBLINGUAL Q5M PRN PRN Reason: CARDIAC/CHEST PAIN Ondansetron HCl (Zofran) 4 mg IV Q6H PRN PRN PRN Reason: NAUSEA/VOMITING Last Admin: 11/14/19 03:48 Dose: 4 mg Documented by: Pramipexole Dihydrochloride (Mirapex) 0.25 mg PO QHS [facility] Last Admin: 11/14/19 21:39 Dose: Not Given Documented by: Pregabalin (Lyrica) 75 mg PO TID [facility] Last Admin: 11/15/19 14:08 Dose: 75 mg Documented by: Sodium Chloride () 10 - 40 ml IV UD PRN PRN Reason: SALINE FLUSH Last Admin: 11/14/19 06:38 Dose: 10 ml Documented by: Timolol Maleate (Timoptic) 1 drop OPHTHALMIC QHS [facility] Last Admin: 11/14/19 23:03 Dose: 1 drop Documented by: Trazodone HCl (Desyrel) 25 mg PO QHS [facility] Last Admin: 11/14/19 21:39 Dose: Not Given Documented by: Discharge Activity: May Not Drive Weight Bearing Status: Weight bearing as tolerated Call your doctor if you observe: Fever of 101 or Higher, Coldness, Increased Pain, Change in Color, Inability to urinate, Using more than one pad per hour, Shortness of breath, Dizziness, Fainting spells, Swelling in the ankles, Chest pain, Prolonged hiccoughing, Increased palpitations (irregular heartbeat), Calf discomfort, Uncontrolled pain Home Medications: Medications to take at Discharge Calcium (Elemental) [Caltrate-600] 600 mg PO QHS 11/04/14 Dextrin [Fiber] 625 gm PO DAILY 11/04/14 Dicyclomine HCl [Bentyl] 10 mg PO Q6H PRN PRN 11/04/14 Lactobacillus Combination No.4 [Probiotic] 1 ea PO DAILY 11/04/14 Latanoprost 0.005% [Xalatan Opthalmic] 1 drp EACH EYE QHS 11/04/14 Leflunomide [Arava] 20 mg PO DAILY 11/04/14 Multivitamins,Therapeutic [Multivitamin] 1 tab PO DAILY 11/04/14 [place]-3 Fatty Acids/Fish Oil [Fish Oil 1,000 mg Capsule] 1 ea PO MOWEFR 11/04/14 Ropinirole HCl [Requip] 0.5 mg PO QHS 11/04/14 Timolol [Betimol] 1 drp EACH EYE QHS 11/04/14 traZODone [Desyrel] 25 mg PO QHS 11/04/14 atorvastatin 20 mg tablet 10 mg PO QHS tab 10/25/17 cholecalciferol (vitamin D3) 50 mcg (2,000 unit) capsule 2,000 unit PO QDAY cap 10/25/17 duloxetine 20 mg capsule,delayed release 40 mg PO QDAY cap 10/25/17 atenolol 50 mg tablet 50 mg PO QHS 30 Days #30 12/27/17 Hydrochlorothiazide 12.5 mg PO DAILY 11/03/19 Mometasone/Formoterol [Dulera 200 Mcg/5 Mcg Inhaler] 2 puff IH BID 11/03/19 Pantoprazole Sodium [Protonix] 40 mg PO DAILY 11/03/19 Pregabalin [Lyrica] 75 mg PO TID 11/03/19 Loratadine [Claritin] 10 mg PO DAILY 11/08/19 traMADol [Ultram] 100 mg PO Q6H PRN PRN 11/08/19 Hydrocodone/Acetaminophen [[place] 5-325 Tablet] 1 ea PO Q4H PRN PRN 5 Days tab 11/09/19 Albuterol IH (ProAir) [Proair Hfa] 1 puff IH Q6H PRN PRN 11/14/19 Bimatoprost 0.01% [Lumigan 0.01%] 1 drp EACH EYE DAILY 11/14/19 Ciprofloxacin [Cipro] 500 mg PO BID 11/14/19 Omeprazole 40 mg PO DAILY 11/14/19 Primary Care Physician: Raghav Torres MD [Primary Care Provider] - Please follow up with your Primary Care Physician in: in 2 weeks to control BP Please Follow Up With: González Taylor MD When: NEXT week, within 1 week Medical Necessity - Tobacco Use Smoking Status: Never smoker Meaningful Use Info Meaningful Use Diagnoses (Choose all that apply): None applicable Code Visit Inpatient E&M: 10351 Disch Hosp
--- NOTE | 2019-11-15 16:00 | EKG12_ITS ---
Test Reason : CHEST PAIN Blood Pressure : / mmHG Vent. Rate : 096 BPM Atrial Rate : 096 BPM P-R Int : 160 ms QRS Dur : 072 ms QT Int : 356 ms P-R-T Axes : 065 038 040 degrees QTc Int : 449 ms Normal sinus rhythm Normal ECG When compared with ECG of 15-NOV-2019 11:56, MANUAL COMPARISON REQUIRED, DATA IS UNCONFIRMED Confirmed by MARK VEGAS, RAFAEL ([id number]), electronic news gathering editor KOFI YOU ([id number]) on 11/19/2019 2:45:13 PM Referred By: González Taylor Confirmed By:PIYUSH FLORES MD
== END 2019-11-15 16:30 | disposition home or self-care (01) ==
LOC: ED 18:49 → MS3 22:53
PROVIDERS: Urology; Admitting Provider Hospitalist; Emergency Provider Emergency Medicine; PCP Internal Medicine; Visit Provider Internal Medicine
PROC: (CPT 52332; principal; 2019-11-14 15:15)
DX: N13.2 Hydronephrosis with renal and ureteral calculous obstruction (principal); M51.36 Other intervertebral disc degeneration, lumbar region; M99.05 Segmental and somatic dysfunction of pelvic region; E78.5 Hyperlipidemia, unspecified; M99.03 Segmental and somatic dysfunction of lumbar region; I10 Essential (primary) hypertension; M79.7 Fibromyalgia; K58.9 Irritable bowel syndrome, unspecified; G25.81 Restless legs syndrome; K21.9 Gastro-esophageal reflux disease without esophagitis; M81.0 Age-related osteoporosis without current pathological fracture; M06.00 Rheumatoid arthritis without rheumatoid factor, unspecified site; K92.1 Melena; Z79.899 Other long term (current) drug therapy; F41.9 Anxiety disorder, unspecified
CPT/HCPCS: 00918; 52332; 52352; 36415; 74018; 74177; 76000; 80048; 80053; 81001; 82274; 83605; 84484; 85014; 85018; 85025; 85610; 93005; 94640; 96361; 96365; 96366; 96375; 96376; 99218; 99284; J7030; J7120; Q9967; A4216; C1769; C2617; G0378; J2405

== ENCOUNTER → 2019-11-16 10:21 | Outpatient (CLI) | payer MEDICARE, SELFPAY ==
[2019-11-14 13:19] VITALS: BMI 28.5
--- NOTE | 2019-11-16 10:26 | VDLE_ITS ---
Reason For Study: Swelling RLE RIGHT LEFT GSV is normal. CFV is compressible, spontaneous, phasic, CFV is compressible, spontaneous, phasic, competent, and demonstrates normal competent and demonstrates normal augmentation. augmentation. FV is compressible, spontaneous, phasic, competent and demonstrates normal augmentation. POP V is compressible, spontaneous, phasic, competent and demonstrates normal augmentation. T/P Trunk is compressible. PTV is compressible. RT PerV is compressible. Procedure Exam performed in department. A preliminary report was called and/or faxed to Dr. Taylor. Interpretation Summary Deep veins of the right lower extremity are patent and compressible segmentally. There is no evidence of right lower extremity deep vein thrombosis. Valvular competence appears intact within the proximal deep venous system on the right . The right great saphenous vein appears patent and compressible segmentally. Ordering Physician: González Taylor Referring Physician: Raghav Torres Performed By: Brooke Magana, SHERRY, RVT
== END ==
PROVIDERS: PCP Internal Medicine; Referring Provider Urology; Visit Provider Urology
DX: M79.89 Other specified soft tissue disorders (principal)
CPT/HCPCS: 93971

== ENCOUNTER → 2019-12-04 12:26 | Outpatient (CLI) | payer MEDICARE, SELFPAY ==
[2019-11-14 13:19] VITALS: BMI 28.5
[2019-11-29 17:58] LABS: Creatinine, Serum 0.59 mg/dL (0.55-1.02); EST Glomerular Filtration Rate 105 mL/min (>60); Est Glom Filt Rate - Afr Amer 126 mL/min (>60)
--- NOTE | 2019-12-04 12:42 | MRI_ITS ---
STUDY: MRI LUMBAR SPINE WITH AND WITHOUT CONTRAST REASON FOR EXAM: Female, 79 years old. hnp, spinal stenosis, hx prior surgerypt could not hold still restless legs TECHNIQUE: Standardized fat and water weighted pulse sequences were obtained in the sagittal and axial planes. 14ml Dotarem via IV was administered for the contrast portion of the examination. Motion limited exam. COMPARISON: MRI lumbar spine February 22, 2019 FINDINGS: T12-L1: Normal endplates. Normal disc height, hydration and morphology. Normal bilateral facet joints. Normal central canal and bilateral lateral recesses. Normal bilateral intervertebral neural foramina. Normal lumbar lordosis. There is no substantial scoliosis. Normal conus medullaris that terminates at the L1 level. L1-2: Normal endplates. Normal disc height, hydration and morphology. Normal bilateral facet joints. Normal central canal and bilateral lateral recesses. Normal bilateral intervertebral neural foramina. L2-3: Disc space narrowing with T1 and T2 lengthening and enhancement of the endplates. No fluid signal is noted within the disc space. Severe narrowing of the neural foramina due to a circumferential disc marginal osteophyte. Central canal patent. Right hemilaminectomy. L3-4: Mild central and lateral trefoil type spinal stenosis due to hypertrophic facet disease and a small disc marginal osteophyte. L4-5: Normal endplates. Decreased disc height, hydration and morphology. Normal bilateral facet joints. Normal central canal and bilateral lateral recesses. Mild narrowing bilateral intervertebral neural foramina. L5-S1: Normal endplates. Normal disc height, hydration and morphology. Normal bilateral facet joints. Normal central canal and bilateral lateral recesses. Normal bilateral intervertebral neural foramina. Normal visualized sacral ala. Normal visualized paraspinous soft tissue structures. IMPRESSION: Motion limited exam. Post surgical changes noted changes L2-3 stable. Multilevel neural foraminal narrowing as noted above. No significant interval change. Electronically Signed: Wyatt Cardona MD at 17:16 EDT , Service support , MRI/Spine Lumbar W/WO Contrast
== END ==
PROVIDERS: PCP Internal Medicine; Referring Provider Nurse Practitioner Acute Care; Visit Provider Nurse Practitioner Acute Care
DX: M51.26 Other intervertebral disc displacement, lumbar region (principal); M48.061 Spinal stenosis, lumbar region without neurogenic claudication
CPT/HCPCS: 36415; 72158; 82565; A9575

== ENCOUNTER → 2019-12-12 08:53 | Outpatient (CLI) | payer MEDICARE, SELFPAY ==
[2019-11-14 13:19] VITALS: BMI 28.5
--- NOTE | 2019-12-12 09:00 | BD_ITS ---
STUDY: DUAL ENERGY X-RAY ABSORPTIOMETRY / DXA REASON FOR EXAM: Female, 79 years old. 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 COMPARISON: Comparison is made with prior examination dated August 10, 2016. FINDINGS: Lumbar Spine (L1-L4): g/cm2 (1.272) / T-score (0.9) / Z-score (2.7) Findings are suggestive of normal bone density with a low fracture risk. Left Femur Total: g/cm2 (0.931) / T-score (-0.6) / Z-score (1.3) Left Femoral Neck: g/cm2 (0.888) / T-score (-1.1) / Z-score (1.0) Right Femur Total: g/cm2 (0.911) / T-score (-0.8) / Z-score (1.1) Right Femoral Neck: g/cm2 (0.865) / T-score (-1.2) / Z-score (0.8) The T-Scores on the most recent prior examination were: Lumbar Spine (L1-L4): There has been improvement of bone density since the previous examination. Left Femur Total: which represents a worsening of 0.1%. Right Femur Total: which represents a worsening of 3.4%. BD/Dexa Bone Density Study IMPRESSION: The patient is considered osteopenic as outlined below according to World Jose Organization (WHO) criteria with a low fracture risk. There has been worsening of bone density since the previous examination. Reference Information: The T-score is the number of standard deviations above or below the standard which is normal for young adults at their peak bone mineral density. The World Health Organization (WHO) interprets the T-scores as follows: Above -1 Normal bone density Between -1 and -2.5 Osteopenia Equal to / or below -2.5 Osteoporosis As a practical clinical guideline, osteopenia may be graded as follows: Mild -1 through -1.5 Moderate -1.6 through -2.0 Severe -2.1 through -2.4 The Z-score is the number of standard deviations above or below age-matched controls. A Z-score of less than -1.5 would be considered abnormal. References: 1. NIH Osteoporosis and Related Bone Diseases http://www.osteo.org 2. International Society for Clinical Densitometry http://www.iscd.org 3. National Osteoporosis Foundation http://www.nof.org Electronically Signed: Jey Bustillo, at 11:02 EDT , Service support ,
== END ==
PROVIDERS: PCP Internal Medicine; Referring Provider Orthopaedic Surgery; Visit Provider Orthopaedic Surgery
DX: M85.88 Other specified disorders of bone density and structure, other site (principal)
CPT/HCPCS: 77080

== ENCOUNTER 2020-02-27 19:56 | Emergency (ER) | payer MEDICARE, SELFPAY ==
[2019-11-14 13:19] VITALS: BMI 28.5
[2020-02-27 19:57] VITALS: BP 145/83; PULSE 84; RESP 16; TEMP 36.9; O2SAT 94; BMI 26.9
--- NOTE | 2020-02-27 21:12 | US_ITS ---
STUDY: VENOUS DOPPLER ULTRASOUND - BILATERAL LOWER EXTREMITIES REASON FOR EXAM: Female, 79 years old. SWELLING AND CALF PAIN SURGERY LAST TUESDAY TECHNIQUE: Ultrasound evaluation of the deep vein system to include christianson-scale imaging and compression was performed. Christianson-scale imaging and Doppler sonographic evaluation, including duplex spectral analysis and qualitative color flow sonography, was performed. COMPARISON: None. FINDINGS: RIGHT LEG Common Femoral Vein: Normal compression, spontaneity and augmentation. Normal color Doppler. Common Femoral Vein/Greater Saphenous Junction: Normal compression, spontaneity and augmentation. Normal color Doppler. Femoral Proximal: Normal compression, spontaneity and augmentation. Normal color Doppler. Femoral Middle: Normal compression, spontaneity and augmentation. Normal color Doppler. Femoral Distal: Normal compression, spontaneity and augmentation. Normal color Doppler. Popliteal Vein: Normal compression, spontaneity and augmentation. Normal color Doppler. Posterior Tibial Vein: Normal compression, spontaneity and augmentation. Normal color Doppler. Peroneal Vein: Normal compression, spontaneity and augmentation. Normal color Doppler. LEFT LEG Common Femoral Vein: Normal compression, spontaneity and augmentation. Normal color Doppler. Common Femoral Vein/Greater Saphenous Junction: Normal compression, spontaneity and augmentation. Normal color Doppler. Femoral Proximal: Normal compression, spontaneity and augmentation. Normal color Doppler. Femoral Middle: Normal compression, spontaneity and augmentation. Normal color Doppler. Femoral Distal: Normal compression, spontaneity and augmentation. Normal color Doppler. Popliteal Vein: Normal compression, spontaneity and augmentation. Normal color Doppler. Posterior Tibial Vein: Normal compression, spontaneity and augmentation. Normal color Doppler. Peroneal Vein: Normal compression, spontaneity and augmentation. Normal color Doppler. US/Venous Duplex Imag/Wilbert Extrem IMPRESSION: Normal venous Doppler ultrasound of the bilateral lower extremities. No DVT Electronically Signed: Natanael Schmitz, at 21:59 EDT Tel , Service support ,
--- NOTE | 2020-02-27 21:17 | ED.DCSUM_ITS ---
- ER Visit Summary Date of Service: 02/27/20 Chief Complaint: Bilateral lower extremity pain History of Present Illness: The patient is a 79 F presenting with bilateral lower extremity pain and mild swelling. Patient had back surgery 1 week ago at [facility] per Dr. Turner. She called their office today due to leg pain. She was advised to come to the ED to rule out DVT. She denies chest pain or shortness of breath. Denies recent trauma. Denies other complaints. Physical Examination: Vitals are stable. Patient is afebrile. Alert no acute distress. HEENT exam is unremarkable. Neck is supple. Lungs are clear and equal bilaterally. Heart is regular rate and rhythm. Abdomen is soft nontender nondistended. Back: Incision clean dry and intact Extremities mild calf tenderness bilaterally. Normal distal pulses. Skin is warm and dry. No focal neurologic deficit. Remainder of exam is unremarkable. Emergency Department Course and Treatment: Bilateral venous Doppler shows Normal venous Doppler ultrasound of the bilateral lower extremities. No DVT. Patient is advised to follow-up with her orthopedic surgeon and primary care physician. Advised return to ED for worsening complaints. Disposition: Discharge home Impression: Bilateral lower extremity pain This note was generated with Cloud[employer] dictation software. It may contain incorrect words, spelling, and punctuation that were not noted in review of the chart prior to signing ED Disposition - Plan for ED Patient: Referrals: Raghav Torres MD [Primary Care Provider] -
--- NOTE | 2020-02-27 22:25 | ED.DEP ---
ED Disposition - Plan for ED Patient: Instructions: ED Muscle Pain Leg Cramps Referrals: Raghav Torres MD [Primary Care Provider] -
[2020-02-27 22:41] VITALS: BP 140/80; PULSE 80; RESP 16; O2SAT 97
== END 2020-02-27 22:52 | disposition home or self-care (01) ==
LOC: ED 22:15
PROVIDERS: Emergency Provider Emergency Medicine; PCP Internal Medicine
DX: M79.604 Pain in right leg (principal); M79.605 Pain in left leg
CPT/HCPCS: 93970; 99282

== ENCOUNTER → 2020-04-23 14:22 | Outpatient (CLI) | payer MEDICARE, SELFPAY ==
--- NOTE | 2020-04-23 14:28 | BI_ITS ---
MAMMOGRAPHY - BILATERAL SCREENING REASON FOR EXAM: Female, 80 years old. Routine annual screening examination. PERTINENT HISTORY: Non-contributory. TECHNIQUE: Digital bilateral breast lizzie (3D mammographic acquisition) in the CC and MLO projections. 2-D mediolateral oblique (MLO) and craniocaudad (CC) views of both breasts were obtained. CAD: Full Field Digital Mammography with Computer Added Detection was performed. COMPARISON: Comparison is made with prior study dated 01/24/2019 and 01/04/2018. FINDINGS: Breast Composition: The breasts are heterogeneously dense, which may obscure small masses. There are no dominant masses or suspicious calcifications. Stable bilateral microcalcifications. No focal cluster is seen. No other significant abnormalities are identified. There has been no significant change since the prior study. BI/SCREEN MAMM (CAD) W/LIZZIE BILAT IMPRESSION: Stable bilateral screening mammogram. Yearly follow-up mammogram recommended. (A) ASSESSMENT CATEGORY: BIRADS Category 2: Benign. A letter regarding these results will be sent to the patient by the facility within 30 days. Approximately 10% of breast cancers are not detected by mammography. A normal mammogram should not delay biopsy of a clinically suspicious abnormality. [id number] Electronically Signed: Jey Bustillo, at 15:14 EDT , Service support ,
== END ==
PROVIDERS: PCP Internal Medicine; Referring Provider Obstetrics & Gynecology; Visit Provider Obstetrics & Gynecology
DX: Z12.31 Encounter for screening mammogram for malignant neoplasm of breast (principal)
CPT/HCPCS: 77063; 77067

== ENCOUNTER → 2020-06-03 09:17 | Outpatient (CLI) | payer MEDICARE, SELFPAY ==
[2020-06-03 11:26] LABS: CREATININE FINGERSTICK < 0.6 mg/dL (0.55-1.02); EGFR FINGERSTICK > 60.0000 mL/min (>60)
--- NOTE | 2020-06-03 11:30 | MRI_ITS ---
STUDY: MRI LUMBAR SPINE WITH AND WITHOUT CONTRAST REASON FOR EXAM: Female, 80 years old. s/p lumbar fusion, left hip/leg pain TECHNIQUE: Standardized fat and water weighted pulse sequences were obtained in the sagittal and axial planes. IV 14ml Dotarem was administered for the contrast portion of the examination. COMPARISON: 12/04/2019. FINDINGS: T12-L1: Normal endplates. Disc dehydration. Normal bilateral facet joints. Normal central canal and bilateral lateral recesses. Normal bilateral intervertebral neural foramina. Normal lumbar lordosis. There is no substantial scoliosis. Normal conus medullaris that terminates at the L1 level. L1-2: Normal endplates. Disc dehydration. Normal bilateral facet joints. Normal central canal and bilateral lateral recesses. Normal bilateral intervertebral neural foramina. L2-3: Marked disc space narrowing with irregular endplates. 3 mm degenerative retrolisthesis. Mild facet arthrosis. Normal central canal and bilateral lateral recesses. Foraminal stenosis is severe on the right, mild on the left due to spurring. There is a 9 mm rim-enhancing collection in the right paramedian subcutaneous soft tissues, 8 mm from the skin surface. L3-4: Normal endplates. Disc dehydration. Mild annular disc bulge. No canal stenosis. Normal bilateral facet joints. Normal central canal and bilateral lateral recesses. Foraminal stenosis is mild on the right, severe on the left due to spurring. L4-5: Normal endplates. Marked disc space narrowing. Status post laminectomy and posterior fusion. Mild, noncompressive spondylotic bar. No canal stenosis. Mild foraminal encroachment due to spurring. There is a 1.4 x 0.7 cm rim-enhancing collection in the subcutaneous soft tissues, 8 mm from the skin surface. L5-S1: Normal endplates. Disc dehydration. Status post laminectomy and fusion. Normal bilateral facet joints. Normal central canal and bilateral lateral recesses. Normal bilateral intervertebral neural foramina. Normal visualized sacral ala. Postsurgical changes in the paraspinous soft tissues. MRI/Spine Lumbar W/WO Contrast IMPRESSION: 1. Very small subcutaneous fluid collections at L2-L3 and L4-L5. 2. L3-L4 disc bulge. 3. L2-L3 retrolisthesis. 4. Foraminal stenosis at L2-L3 and L3-L4. 5. Postoperative changes from L4 through S1. Electronically Signed: Candy John MD at 19:45 EDT Tel , Service support ,
== END ==
PROVIDERS: PCP Internal Medicine; Referring Provider Nurse Practitioner Acute Care; Visit Provider Nurse Practitioner Acute Care
DX: Z98.1 Arthrodesis status (principal)
CPT/HCPCS: 72158; A9575

== ENCOUNTER → 2020-07-28 09:53 | Outpatient (CLI) | payer MEDICARE, SELFPAY ==
--- NOTE | 2020-07-28 09:54 | ECHOD_ITS ---
Reason For Study: Murmur, SOB Procedure This was a 2D Doppler, Color Flow transthoracic echocardiogram. Exam performed in department. Left Ventricle Normal LV size. Mild concentric left ventricular hypertrophy. Left ventricular systolic function is normal. The estimated ejection fraction is 60 %. No regional wall motion abnormalities noted. Right Ventricle Normal RV size. Normal systolic function. Atria Normal left atrium. Normal right atrium. Mitral Valve Normal mitral valve. Mild (1+) eccentric mitral valve insufficiency. Tricuspid Valve Normal tricuspid valve. Aortic Valve Normal aortic valve. Trisinus/trileaflet aortic valve. Mild (1+) aortic valve insufficiency. Pulmonic Valve Normal pulmonic valve. Great Vessels Normal aortic root. The pulmonary artery is normal size. Normal inferior vena cava. Pericardium/Pleural No pericardial effusion. MMode/2D Measurements & Calculations LVIDd: 3.7 cm IVSd: 1.2 cm Ao root diam: 2.9 cm LVIDs: 2.0 cm LVPWd: 1.3 cm LA dimension: 3.6 cm RVDd: 3.0 cm FS: 46.0 % LAV(MOD-bp): 40.9 ml LA A4 area: 14.8 cm2 RA A4 area: 13.3 cm2 LAV(MOD-bp) Indexed: 23.6 ml/m2 LAV(MOD-sp2): 47.8 ml LAV(MOD-sp4): 34.3 ml Time Measurements MV dec time: 0.19 sec Doppler Measurements & Calculations MV E max luis: 71.2 cm/sec Lat Peak E' Luis: 5.0 cm/sec Med Peak E' Luis: 3.9 cm/sec MV A max luis: 92.2 cm/sec E/E' lat: 14.3 E/E' med: 18.4 MV E/A: 0.77 MV V2 max: 89.3 cm/sec MV P1/2t max luis: 69.9 cm/sec Ao V2 max: 151.5 cm/sec MV max P.2 mmHg MV P1/2t: 71.9 msec Ao max P.2 mmHg MV V2 mean: 49.1 cm/sec MV dec slope: 284.9 cm/sec2 MV mean P.1 mmHg MVA(P1/2t): 3.1 cm2 MV V2 VTI: 25.2 cm AI max luis: 518.2 cm/sec LV V1 max: 126.2 cm/sec PA V2 max: 70.3 cm/sec AI max P.4 mmHg LV V1 max P.4 mmHg AI dec slope: 306.5 cm/sec2 AI P1/2t: 495.2 msec Interpretation Summary Normal LV size. Left ventricular systolic function is normal. The estimated ejection fraction is 60 %. Mild (1+) eccentric mitral valve insufficiency. Mild (1+) aortic valve insufficiency. Mild concentric left ventricular hypertrophy. Ordering Physician: Celestine Pereyra Referring Physician: Raghav Torres M.D. Performed By: Victoriano Koch RCS
== END ==
PROVIDERS: PCP Internal Medicine; Referring Provider Internal Medicine Cardiovascular Disease; Visit Provider Internal Medicine Cardiovascular Disease
DX: E78.5 Hyperlipidemia, unspecified (principal); I10 Essential (primary) hypertension; R01.1 Cardiac murmur, unspecified; R06.00 Dyspnea, unspecified
CPT/HCPCS: 93306

== ENCOUNTER → 2020-08-06 15:21 | Outpatient (CLI) | payer MEDICARE, SELFPAY ==
--- NOTE | 2020-08-06 15:30 | RAD_ITS ---
STUDY: X-RAY - PELVIS AND LEFT HIP REASON FOR EXAM: Female, 80 years old. Left hip pain x 6 months TECHNIQUE: 3 views of the pelvis and hip. COMPARISON: None. FINDINGS: There is a non-specific bowel gas pattern. Normal visualized soft tissue structures. Status post surgical fusion of L4-S1. Normal bilateral iliac wings, sacroiliac joints and visualized sacrum. Normal bilateral superior and inferior pubic rami. Normal pubic symphysis. Normal bilateral ischial tuberosities. Normal visualized femoral head. Normal acetabulum. Normal hip joint. RAD/HIP, UNI W/ Pelvis 2-3 Views IMPRESSION: Normal x-ray examination of the pelvis and hip. Electronically Signed: Justice Ruiz DO at 19:53 EST Tel [phone], Service support ,
== END ==
PROVIDERS: PCP Internal Medicine; Referring Provider Anesthesiology Pain Medicine; Visit Provider Anesthesiology Pain Medicine
DX: M25.552 Pain in left hip (principal)
CPT/HCPCS: 73502

== ENCOUNTER → 2020-11-13 14:21 | Outpatient (CLI) | payer MEDICARE, SELFPAY ==
[2020-10-06 13:09] VITALS: BMI 26.1
[2020-11-13 15:56] LABS: Amphetamine Urine VISTA NEGATIVE (<1000 ng/mL); Barbiturate Urine VISTA NEGATIVE (< 200 ng/mL); Benzodiazepine Urine VISTA NEGATIVE (< 200 ng/mL); Cocaine Urine VISTA NEGATIVE (< 300 ng/mL); Ecstacy Urine VISTA NEGATIVE (< 500 ng/mL); Methadone Urine VISTA NEGATIVE (< 300 ng/mL); PCP Urine VISTA NEGATIVE (< 25 ng/mL); THC Urine VISTA NEGATIVE (< 50 ng/mL); Vista UDS pH Range 6
== END ==
PROVIDERS: PCP Internal Medicine; Referring Provider Anesthesiology Pain Medicine; Visit Provider Anesthesiology Pain Medicine
DX: F11.20 Opioid dependence, uncomplicated (principal)
CPT/HCPCS: 80307

== ENCOUNTER 2020-12-02 10:30 | Outpatient (RCR) | payer MEDICARE, SELFPAY ==
[2020-10-06 13:09] VITALS: BMI 26.1
--- NOTE | 2020-11-03 11:48 | HP.PTEVAL ---
Patient's Visit Information PIERRE MELENDEZ is a 80 year old F referred to Physical Therapy by Dr. 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 Date of Evaluation: 11/03/20 Physical Therapist: SANGEETA Melchor - Visit Plan Frequency: 2x /Week Duration: 4-6 Weeks Plan: 2X/ week for 10 visits for AT for core stability, HS, gastroc stretching, postural exercises, hip strengthening, gait training with HEP - Subjective Pt reports that she has pain down her L hip and down to her knee on the L. The pain is there all the time but it changes in intensity. She describes the pain as burning and sometimes numb or like someone is squeezing it hard... occ a sharp pain in the hip on the L. Down the L leg she describes it as achy pain. This pain started at the end of January/begining of February. Pt is under Dr Anguiano for pain management and he sent her to a hip surgeon and then he sent her back to Dr Turner (her back surgeon). He told her that she needs no more back surgery and will be sent to [facility] for another opinion. SHe went back to Dr Macias and got a shot in her spine and that helped some and now it is starting to come back but not as severe. She is on pain meds now and thinks that it helps some with Advil in between. She has restless legs and that does not help with her pain. She sees the neurologist for her restless legs. Sit to stand... tough lesa if sits or stands too long. She needs her arms to getout of the chair. Doing ADL's is tough and she has to stop in middle of laundry etc. She sleeps pretty well. The pain wakes her up when it is time for her pain pill. She has stairs at home and struggles going up the stairs and hangs onto a railing X 2..... She uses a cane for long distances or a cart when she is out. Pt currently has L heel apopysitis currently. - Pain back pain Pain Intensity (Out of 10): 4 L leg pain Pain Intensity (Out of 10): 5 - Objective Gait: she walks with a cane for longer distances with straight cane and shorter stride and decrease stance time on the L. SLower to turn 180 degrees. Trunk AROM: Flexion 75%, Ext 50%, SB B 75%. Patellar DTR's 0/3 B. LE MMT: R hip flex 4/5 and L 4-/5, B knee flex and knee ext 4/5, Bridge (1/2 normal ROM ), R hip abd 4/5 and L 4-/5, pt is able to heel and toe raises. SLUMP - B. SLR -B. Tight Hamstring, gastroc and Piriformis B ( the R hip is tighter but when stretched increases L hip pain). Posture: sits with slouched rounded shoulders and increace PPT. - Goals Goal 1:: I HEP Goal Time Frame: 4-6 Weeks Goal 2:: Decrease back and L leg pain to 3/10 with ADL's Goal Time Frame: 4-6 Weeks Goal 3:: Increase L LE MMT by 1/2 muscle grade (at time of eval: LE MMT: R hip flex 4/5 and L 4-/5, B knee flex and knee ext 4/5, Bridge (1/2 normal ROM ), R hip abd 4/5 and L 4-/5, pt is able to heel and toe raises). Goal Time Frame: 4-6 Weeks Goal 4:: Increase ability to perform ADL's with 50% increase ability per subjective. Goal Time Frame: 4-6 Weeks Goal 5:: Be able to go up and down the stairs recip with 2 hand rails with 50% increase in ease - Rehabilitation Potential Rehabilitation Potential: Good - Anticipated Interventions Patient/Client Instruction: Educate patient on: Condition, Plan of Care For the Purpose of:: To decrease pain, To increase ROM, To improve nutrient delivery to tissue, To improve muscle performance and motor function, To improve ability to perform ADL's, To increase tolerance to activity/condition/position, To improve performance and independence with ADL's, To decrease level of supervision to perform tasks, To improve ability of physical actions for home/community/work/leisure, To improve gait and locomotor functions, To improve health of tissue, To increase flexibility/ROM, To improve endurance, To improve balance, To improve safety with gait Therapeutic Exercise to Include: Strength training, Balance training, Postural training, Flexibilty training, Gait and locomotor training, Neuromotor development, In an aquatic setting, Active ROM, Dynamic Lumbar Stabilization For the Purpose of:: To decrease pain, To increase ROM, To improve nutrient delivery to tissue, To improve muscle performance and motor function, To improve ability to perform ADL's, To increase tolerance to activity/condition/position, To improve performance and independence with ADL's, To decrease level of supervision to perform tasks, To improve ability of physical actions for home/community/work/leisure, To improve gait and locomotor functions, To improve health of tissue, To decrease soft tissue restriction, To increase flexibility/ROM, To improve balance Functional Training to Include: Gait training For the Purpose of:: To improve gait and locomotor functions, To improve safety with gait Thank you for the opportunity to evaluate your patient. For Medicare and Medicare HMO plans, please review the plan of care and approve it. It will need to be FAXED BACK to us at [phone] for Medicare purposes. For Medicare only, by signing this I certify the plan of care. Please let me know if there are questions or concerns regarding this plan of care. Physician Signature: Date:
--- NOTE | 2020-12-02 11:59 | HP.PTDCSUM ---
It has been my pleasure to treat PIERRE MELENDEZ referred by Dr. 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 Discharge Date: 12/02/20 Please see the following information for a summary of their discharge status. Subjective: Pt still has pain in her L leg and hip. Last week she had a CATSCAN and x-rays and she has to have an appointment with the surgeon to possibly have back surgery cause it is so close to the nerve. The water felt good for the most part. Pt does not feel that she improved much from being in the water and is still the same as she was before she started. She wants to hold off on PT right now and continue to do her exercises at home. back pain Pain Intensity (Out of 10): 0 L leg pain Pain Intensity (Out of 10): 6 % Improvement: 0 Objective/Function: Reviewed POC and lack of progress. Dr called in middle of PT to give results and they are looking at additional surgery. Pt subj says 50% imrovement in stair climbing. SHe feels that she is no better with her strength and pain Goal 1:: I HEP Goal Progress: Goal Met Goal 2:: Decrease back and L leg pain to 3/10 with ADL's Goal Progress: Not Progressing Goal 3:: Increase L LE MMT by 1/2 muscle grade (at time of eval: LE MMT: R hip flex 4/5 and L 4-/5, B knee flex and knee ext 4/5, Bridge (1/2 normal ROM ), R hip abd 4/5 and L 4-/5, pt is able to heel and toe raises). Goal Progress: Progressing Goal 4:: Increase ability to perform ADL's with 50% increase ability per subjective. Goal Progress: Not Progressing Goal 5:: Be able to go up and down the stairs recip with 2 hand rails with 50% increase in ease Goal Progress: Goal Met Plan: DC PT back to surgeon Discharge Comments: DC PT back to physician If there are questions or concerns regarding this patient's physical therapy, please feel free to call me at [phone]. Thank you for the referral of this patient. Sincerely, Renetta Langford, MPT
== END 2020-12-02 19:00 | disposition home or self-care (01) ==
LOC: PT 10:30
PROVIDERS: PCP Internal Medicine; Referring Provider Orthopaedic Surgery; Visit Provider Orthopaedic Surgery
DX: M48.061 Spinal stenosis, lumbar region without neurogenic claudication (principal); M41.50 Other secondary scoliosis, site unspecified; Z98.1 Arthrodesis status
CPT/HCPCS: 97113; 97162; 97530

== ENCOUNTER → 2021-05-05 10:40 | Outpatient (CLI) | payer MEDICARE, SELFPAY ==
[2020-10-06 13:09] VITALS: BMI 26.1
--- NOTE | 2021-05-05 10:43 | BI_ITS ---
MAMMOGRAPHY - BILATERAL SCREENING REASON FOR EXAM: Female, 81 years old. Routine annual screening examination. PERTINENT HISTORY: Non-contributory. TECHNIQUE: Digital bilateral breast lizzie (3D mammographic acquisition) in the CC and MLO projections. 2-D mediolateral oblique (MLO) and craniocaudad (CC) views of both breasts were obtained. CAD: Full Field Digital Mammography with Computer Added Detection was performed. COMPARISON: Comparison is made with prior study dated 04/23/2020 and 01/24/2019. FINDINGS: Breast Composition: The breasts are heterogeneously dense, which may obscure small masses. There are no dominant masses or suspicious calcifications. Stable benign-appearing bilateral axillary lymph nodes. No other significant abnormalities are identified. There has been no significant change since the prior study. BI/SCRN MAMM (CAD)W/LIZZIE BILAT IMPRESSION: Stable bilateral screening mammogram. Yearly follow-up mammogram recommended. (A) ASSESSMENT CATEGORY: BIRADS Category 2: Benign. A letter regarding these results will be sent to the patient by the facility within 30 days. Approximately 10% of breast cancers are not detected by mammography. A normal mammogram should not delay biopsy of a clinically suspicious abnormality. [id number] Electronically Signed: Jey Bustillo MD at 11:31 EDT , Service support ,
== END ==
PROVIDERS: PCP Internal Medicine; Referring Provider Student in an Organized Health Care Education/Training Program; Visit Provider Student in an Organized Health Care Education/Training Program
DX: Z12.31 Encounter for screening mammogram for malignant neoplasm of breast (principal)
CPT/HCPCS: 77063; 77067

== ENCOUNTER 2021-11-12 13:00 | Outpatient (RCR) | payer MEDICARE, SELFPAY ==
--- NOTE | 2021-10-27 14:19 | HP.PTEVAL_ITS ---
Patient's Visit Information PIERRE MELENDEZ is a 81 year old F referred to Physical Therapy by ALIYAH ZHONG with a diagnosis of LUMBAR RADICULOPATHY. Date of Evaluation: 10/27/21 Physical Therapist: Alicia Hamilton, PT, Cert MDT - Visit Plan Frequency: 2-3x /Week Duration: 4-6 Weeks Plan: CONSIDER GAIT TRAINING WITH CANE. POSTURE CORRECTION/STRENGTHENING, INSTRUCTION IN APPROPRIATE BODY MECHANICS AND ACTIVITY MODIFICATIONS. DLS STARTING WITH A NEUTRAL SPINE PROGRESSING ROM TOLERATED. SHANNAN LE ROM, STRETCHING AND STRENGTHENING. HEP INSTRUCTION. - Subjective Work/Leisure: RETIRED. Disability: NO. Present symptoms: LOW BACK PAIN AND LEFT HIP PAIN. SHANNAN LE WEAKNESS LEFT > RIGHT. PATIENT DENIES SHANNAN LE PAIN, NUMBNESS AND TINGLING. Present since: CHRONIC. Pain Scale: WORST 5/10, LEAST 2/10. Currently: 10. Commenced as a result of: NO APPARENT REASON. Symptoms at onset: LOW BACK PAIN AND LEFT HIP PAIN. Worse: GETTING INTO BED AT NIGHT, INITIALLY LYING DOWN, SOMETIMES SITTING, ROLLING OVER IN BED, PROLONGED STANDING, PROLONGED WALKING. Better: TYLONOL, PAIN MEDICINE, MASSAGE OF LOW BACK TO LEFT HIP BY , SOMETIMES SITTING. Disturbed sleep: YES. Previous history/Previous treatment: [address] CALLIE YAÑEZ WITH MOST RECENT BEING JANUARY 2020. PAIN MGMT WITH DR. PRYOR AND KARMEN'S UP UNTIL JANUARY 2020 BEFORE SX. CHIROPRACTIC WITH DR. REY X ABOUT 4 VISITS IN 2019 WITH SOME RELIEF. PHYSICAL THERAPY AFTER SECOND BACK SX AND IT WENT OK. DID NOT LIKE BEING IN THE POOL BUT DOES NOT CONSIDER IT A BAD EXPERIENCE. DOES NOT WANT WATER THERAPY. Treatment this episode: LUMBAR FUSION BY DR. ZHONG 02/18/2021. Coughing/sneezing/straining: NEGATIVE. Gait: PATIENT REPORTS SHE VERES TO THE RIGHT AND LEFT SOMETIMES RANDOMLY. STATES SHE WALKS CAREFULLY. DOES NOT USE ANY ASSISTIVE DEVICES. TIME AND DISTANCE LIMITED DUE TO PAIN IN THE BACK AND LEFT LEG WEAKNESS. Difficulty initiating urination: NO. DENIES BOWEL AND BLADDER DYSFUNCTION. Accidents: NO. Unexplained weight loss: PATIENT REPORTS DECREASED APPETITE AND LOSS OF ABOUT 5 LBS SINCE XMAS. THIS PT RECOMMENDED SHE MAKE HER DOCTOR AWARE. Imaging: PATIENT REPORTS HAVING FOLLOW UP X-RAYS AFTER LAST BACK SURGERY AND DR. ZHONG THINKS IT LOOKS GOOD. PMH/Recent major surgery: 2 R WRIST SURGERIES - ORIF - APPROX 2018, IBS, NIDDM, HTN, HIGH CHOLESTEROL, RECENT H/O RLS. OTHER: PATIENT DENIES ANY COMPLICATIONS WITH ANY OF HER BACK SURGERIES. PHYSICIAN RESTRICTIONS: ACTIVITY TOLERATED. - Objective Sitting/Standing Posture: POOR. SLOUCHED IN SITTING. INCREASED TRUNK FLEXION IN STANDING. INCREASED KYPHOSIS. Active Correction of posture: NE. ONLY ABLE TO PARTIALLY CORRECT. Other Observations: INDEP GAIT INTO PT WITHOUT ANY ASSISTIVE DEVICES AND MILD SWAYING SIDE TO SIDE BUT NO LOB. ABLE TO TRANSFER SIT TO STAND WITHOUT UE ASSIST BUT DIFFICULT. Motor deficit: SHANNAN LE'S GROSSLY 4/5 WITH MMT'ING EXCEPT LEFT HIP 4-/5. Sensory deficit: SHANNAN LE LIGHT TOUCH SENSATION GROSSLY INTACT AND SYMMETRICAL. ROM deficit: TIGHT SHANNAN HIP FLEXORS, HS'S AND GASTROC SOLEUS COMPLEX'S. Reflexes: UNABLE TO ELICIT SHANNAN LE DTR'S. Dural Signs: NEGATIVE SHANNAN LE'S. Lumbar mvmt loss: flex - MOD. ext - LINDA. R SG - LINDA. L SG - LINDA. PATIENT. Core strength: POOR. Palpation: NO ACUTE LOWER THORACIC, LUMBAR, SACRAL OR SHANNAN HIP TENDERNESS WITH LIGHT PALPATION. OTHER: PATIENT IS ABLE TO SLS ON RIGHT LE X APPROX 10 SEC AND LLE X APPROX 8 SEC'S WITHOUT UE ASSIST BUT MAY BENEFIT FROM GAIT TRAINING WITH CANE FOR SAFETY AND TO DECREASE GAIT DEVIATIONS. - Balance/Special Test Scores Oswestry Low Back Score: 12 - Goals Goal 1:: DECREASE C/O LOW BACK AND LEFT HIP PAIN. Goal Time Frame: 4-6 Weeks Goal 2:: IMPROVE LIFTING, WALKING, STANDING, SLEEP, TRAVEL AND HOMEMAKING FUNCTION Goal Time Frame: 4-6 Weeks Goal 3:: INSTRUCT IN PROPHYLAXIS Goal Time Frame: 4-6 Weeks - Anticipated Interventions Patient/Client Instruction: Educate patient on: Condition, Plan of Care, Risk Factors For the Purpose of:: To improve self management Therapeutic Exercise to Include: Strength training, Body mechanics, Postural training, Flexibilty training, Neuromotor development, Dynamic Lumbar Stabilization For the Purpose of:: To decrease pain, To increase ROM, To improve muscle performance and motor function, To increase tolerance to activity/condition/position, To improve ability of physical actions for home/community/work/leisure, To improve gait and locomotor functions Thank you for the opportunity to evaluate your patient. For Medicare and Medicare HMO plans, please review the plan of care and approve it. It will need to be FAXED BACK to us at [phone] for Medicare purposes. For Medicare only, by signing this I certify the plan of care. Please let me know if there are questions or concerns regarding this plan of care. Physician Signatur e: Date:
--- NOTE | 2021-11-17 11:21 | HP.PTDCNRP_ITS ---
PIERRE MELENDEZ was seen in my office for initial evaluation on 10/27/21. The following Plan of Care was established for this patient: Initial Frequency: 2-3x /Week Initial Duration: 4-6 Weeks Patient/Client Instruction: Educate patient on: Condition, Plan of Care, Risk Factors For the Purpose of:: To improve self management Therapeutic Exercise to Include: Strength training, Body mechanics, Postural training, Flexibilty training, Neuromotor development, Dynamic Lumbar Stabilization For the Purpose of:: To decrease pain, To increase ROM, To improve muscle performance and motor function, To increase tolerance to activity/con dition/position, To improve ability of physical actions for home/community/work/leisure, To improve gait and locomotor functions This patient was last seen in our office . Pertinent comments regarding their Physical therapy will appear below: D/C DUE TO ARM FRACTURE. At this point I will be discontinuing this patient from physical therapy. I would be happy to see this patient again in the future if found appropriate by the physician. Thank you! Alicia Hamilton, PT, Cert MDT Balance/Gait/Functional tests - Balance/Special Test Scores Oswestry Low Back Score: 12
== END 2021-11-12 19:00 | disposition home or self-care (01) ==
LOC: PT 13:00
PROVIDERS: PCP Internal Medicine
DX: M54.16 Radiculopathy, lumbar region (principal); Z98.1 Arthrodesis status
CPT/HCPCS: 97110; 97162; 97530

== ENCOUNTER 2021-12-31 09:25 | Outpatient (CLI) | payer MEDICARE, SELFPAY ==
--- NOTE | 2021-12-31 09:35 | BD_ITS ---
STUDY: DUAL ENERGY X-RAY ABSORPTIOMETRY / DXA REASON FOR EXAM: Female, 81 years old. M810 TECHNIQUE: Bone Mineral Density (BMD) measurements of bilateral hips were obtained. COMPARISON: Comparison is made with prior examination dated 12/12/2019. FINDINGS: Left Femur Total: g/cm2 (0.849) / T-score (-0.8) / Z-score (1.3) Left Femoral Neck: g/cm2 (0.735) / T-score (-1.0) / Z-score (1.3) Right Femur Total: g/cm2 (0.869) / T-score (-0.6) / Z-score (1.4) Right Femoral Neck: g/cm2 (0.726) / T-score (-1.1) / Z-score (1.2) The T-Scores on the most recent prior examination were: Left Femur Total: which represents a worsening of 2%. Right Femur Total: which represents an improvement of 2.5%. BD/Dexa Bone Density Study IMPRESSION: The patient is considered osteopenic as outlined below according to World Jose Organization (WHO) criteria with a low fracture risk. There has been improvement of bone density since the previous examination. Reference Information: The T-score is the number of standard deviations above or below the standard which is normal for young adults at their peak bone mineral density. The World Health Organization (WHO) interprets the T-scores as follows: Above -1 Normal bone density Between -1 and -2.5 Osteopenia Equal to / or below -2.5 Osteoporosis As a practical clinical guideline, osteopenia may be graded as follows: Mild -1 through -1.5 Moderate -1.6 through -2.0 Severe -2.1 through -2.4 The Z-score is the number of standard deviations above or below age-matched controls. A Z-score of less than -1.5 would be considered abnormal. References: 1. NIH Osteoporosis and Related Bone Diseases www osteo.org 2. International Society for Clinical Densitometry www iscd.org 3. National Osteoporosis Foundation www nof.org Electronically Signed: Jey Bustillo MD at 14:42 EDT ,
== END 2021-12-31 23:59 | disposition home or self-care (01) ==
PROVIDERS: PCP Internal Medicine; Visit Provider Nurse Practitioner Adult Health
DX: M81.0 Age-related osteoporosis without current pathological fracture (principal)
CPT/HCPCS: 77080

== ENCOUNTER 2022-03-02 10:00 | Outpatient (RCR) | payer MEDICARE, SELFPAY ==
--- NOTE | 2022-01-07 11:52 | HP.PTEVAL_ITS ---
Patient's Visit Information PIERRE MELENDEZ is a 81 year old F referred to Physical Therapy by SIMÓN BATES with a diagnosis of LUMBAR RADICULOPATHY. Date of Evaluation: 01/07/22 Physical Therapist: Alicia Hamilton, PT, Cert MDT - Visit Plan Frequency: 2-3x /Week Duration: 4-6 Weeks Plan: NO LEFT UE INVOLVEMENT WITH THERAPY. POSTURE CORRECTION/STRENGTHENING, INSTRUCTION IN APPROPRIATE BODY MECHANICS AND ACTIVITY MODIFICATIONS. DLS STARTING WITH A NEUTRAL SPINE PROGRESSING ROM TOLERATED. SHANNAN LE ROM, STRETCHING AND STRENGTHENING. HEP INSTRUCTION. - Subjective THIS PATIENT PRESENTS TO PT REPORTING SHE FELL APPROX Oct GOING INTO [facility] RESULTING IN 2 L ARM FX'S. ARM WAS TREATED AT [facility] BY DR. GÓMEZ. REPORTS THAT FOLLOW UP X-RAYS SHOWED [facility] AND SHE WAS DISCHARGED BUT SHE CALLED TODAY FOR A FOLLOW UP CHUNG'T BECAUSE OF PAIN AND SWELLING. CHUNG'T WITH DR. GÓMEZ TOMORROW. SHE REPORTS THAT WHEN HE TOLD HER IT WAS HEALED SHE CALLED HER BACK SURGEON TO GET AN ORDER TO COME BACK TO PT FOR HER BACK BUT NOW SHE IS CONCERNED ABOUT STARTING PT BECAUSE HER HAND IS SWELLING AND GETTING WORSE AGAIN. PATIENT IS AGREEABLE TO BACK EVAL. Work/Leisure: RETIRED. Disability: NO. Present symptoms: LOW BACK PAIN AND LEFT HIP PAIN. SHANNAN LE WEAKNESS LEFT > RIGHT. PATIENT DENIES SHANNAN LE PAIN, NUMBNESS AND TINGLING. Present since: CHRONIC. Pain Scale: WORST 5/10, LEAST 2/10. Currently: 2/10. Commenced as a result of: NO APPARENT REASON. Symptoms at onset: LOW BACK PAIN AND LEFT HIP PAIN. Worse: GETTING INTO BED AT NIGHT, INITIALLY LYING DOWN, SOMETIMES SITTING, ROLLING OVER IN BED, PROLONGED STANDING, PROLONGED WALKING. Better: TYLONOL, PAIN MEDICINE, MASSAGE OF LOW BACK TO LEFT HIP BY , SOMETIMES SITTING. Disturbed sleep: NO. Previous history/Previous treatment: [address] SUR[address] CALLIE YAÑEZ WITH MOST RECENT BEING JANUARY 2020. PAIN MGMT WITH DR. PRYOR AND KARMEN'S UP UNTIL JANUARY 2020 BEFORE SX. CHIROPRACTIC WITH DR. REY X ABOUT 4 VISITS IN 2019 WITH SOME RELIEF. PHYSICAL THERAPY AFTER SECOND BACK SX AND IT WENT OK. DID NOT LIKE BEING IN THE POOL BUT DOES NOT CONSIDER IT A BAD EXPERIENCE. DOES NOT WANT WATER THERAPY. Treatment this episode: LUMBAR FUSION BY DR. ZHONG 02/18/2021. Coughing/sneezing/straining: NEGATIVE. Gait: PATIENT REPORTS SHE VERES TO THE RIGHT AND LEFT SOMETIMES RANDOMLY. STATES SHE WALKS CAREFULLY. NOW USING STRAIGHT CANE. TIME AND DISTANCE LIMITED DUE TO PAIN IN THE BACK AND LEFT LEG WEAKNESS. Difficulty initiating urination: NO. DENIES BOWEL AND BLADDER DYSFUNCTION. Accidents: FALL OCT 2021. HAS A TENDENCY TO FALL FORWARD IF LEANS FORWARD. RECENTLY FELL TWO TIMES THIS WEEK. BOTH FALLS WERE TUESDAY AND WERE WHEN SHE WAS LEANING FORWARD IN THE GARDEN. STATES THAT SHE DIDN'T THINK SHE HURT HER L WRIST WHEN SHE FELL BUT NOW THINKING IT IS POSSIBLE DUE TO INCREASED SWELLING. REPORTS SHE HAS BEEN HAVING INCREASED L WRIST PAIN AND SWELLING EVER SINCE SHE TOOK THE BRACE OFF. Unexplained weight loss: PATIENT REPORTS DECREASED APPETITE AND LOSS OF ABOUT 5 LBS SINCE XMAS BUT GETTING BETTER. Imaging: PATIENT REPORTS HAVING FOLLOW UP X-RAYS AFTER LAST BACK SURGERY AND DR. ZHONG THINKS IT LOOKS GOOD. PMH/Recent major surgery: 2 R WRIST SURGERIES - ORIF - APPROX 2017, IBS, NIDDM, HTN, HIGH CHOLESTEROL. NO LONGER HAS RLS SINCE SLEEP SPECIALIST MADE MEDICATION CHANGE. OTHER: PATIENT DENIES ANY COMPLICATIONS WITH ANY OF HER BACK SURGERIES. PHYSICIAN RESTRICTIONS: ACTIVITY TOLERATED. - Objective AVOIDED L UE INVOLVEMENT WITH ALL TESTING TODAY. Sitting/Standing Posture: P OOR. SLOUCHED IN SITTING. INCREASED TRUNK FLEXION IN STANDING. INCREASED KYPHOSIS. Active Correction of posture: NE. ONLY ABLE TO PARTIALLY CORRECT. Other Observations: INDEP GAIT INTO PT WITH STRAIGHT CANE AND MILD SWAYING SIDE TO SIDE BUT NO LOB. UNABLE TO TRANSFER SIT TO STAND WITHOUT ASSIST FROM RIGHT UE. Motor deficit: SHANNAN LE'S GROSSLY 4/5 WITH MMT'ING EXCEPT LEFT HIP 4-/5. Sensory deficit: SHANNAN LE LIGHT TOUCH SENSATION GROSSLY INTACT AND SYMMETRICAL. ROM deficit: TIGHT SHANNAN HIP FLEXORS, HS'S AND GASTROC SOLEUS COMPLEX'S. Reflexes: UNABLE TO ELICIT SHANNAN LE DTR'S. Dural Signs: NEGATIVE SHANNAN LE'S. Lumbar mvmt loss: flex - MOD. ext - LINDA. R SG - LINDA. L SG - LINDA. PATIENT. Core strength: POOR. Palpation: NO ACUTE LOWER THORACIC, LUMBAR, SACRAL OR SHANNAN HIP TENDERNESS WITH LIGHT PALPATION. OTHER: PATIENT IS ABLE TO SLS ON RIGHT LE X APPROX 8 SEC AND LLE X APPROX 6 SEC'S WITHOUT UE ASSIST. - Balance/Special Test Scores Oswestry Low Back Score: 15 - Goals Goal 1:: DECREASE C/O LOW BACK AND L HIP PAIN Goal Time Frame: 4-6 Weeks Goal 2:: IMPROVE PERSONAL CARE, LIFTING, WALKING, SITTING, STANDING, AND HOMEMAKING FUNCTION. Goal Time Frame: 4-6 Weeks Goal 3:: INSTRUCT IN PROPHYLAXIS Goal Time Frame: 4-6 Weeks - Anticipated Interventions Patient/Client Instruction: Educate patient on: Condition, Plan of Care, Risk Factors For the Purpose of:: To improve self management Therapeutic Exercise to Include: Strength training, Body mechanics, Postural training, Flexibilty training, Gait and locomotor training, Neuromotor development, In an aquatic setting, Dynamic Lumbar Stabilization For the Purpose of:: To decrease pain, To increase ROM, To improve muscle performance and motor function, To increase tolerance to activity/condition/position, To improve ability of physical actions for home/community/work/leisure, To improve gait and locomotor functions Thank you for the opportunity to evaluate your patient. For Medicare and Medicare HMO plans, please review the plan of care and approve it. It will need to be FAXED BACK to us at [phone] for Medicare purposes. For Medicare only, by signing this I certify the plan of care. Please let me know if there are questions or concerns regarding this plan of care. Physician Signature: Date:
--- NOTE | 2022-01-14 13:24 | HP.OTEVAL_ITS ---
Patient's Visit Information PIERRE MELENDEZ is a 81 year old F, referred to Occupational Therapy by SIMÓN BATES, with a diagnosis of left ulna fx, left low end intra-articular fx.. Date of Evaluation: 01/14/22 Occupational Therapist: Tanya Wagner, OTR/Jada, CHT - Subjective This 81 year old female was seen for OT eval with dx. of left intra-articular fx lower end of radius and fx ulna styloid - pt states she suffered a fall 11/05/2021 ans was casted within a week. Pt states she has a brace her gave her but this causes more pain at left CMC region. pt states she is going without it most of the time but struggling with pain of her left wrist. - ADLs Dressing: Shoes Fasteners: Tie shoes, Zippers Eating: Use silverware, Cut food Kitchen: Peel fruits & vegetables, Open jars, Open bottle caps, Place dish in microwave Yard: [place], [place], Use shovel, Use pruners, Use trowel - Pain left wrist 3 Pain Intensity Range: 0, 5 - ROM Elbow: right /left WNL Forearm: right/left WNL Wrist: right 60/60 left 65/30 Opposition: Kapandji opposition scale right 10 left 9 ROM Comments: pt demo full composite fist - Strength Gas Tender: right 35# left 5# Lateral Pinch: right 4# left unable Tripod Pinch: right 6# left unable - Edema Wrist: right 16cm left 18cm - Sensation Sensation Comments: denies - Quick DASH-Disab of Arm,Shoulder& Hand Quick DASH Score: 72.7250 - Goals Goal:: PT will demo an 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 Pt will demo an increase in lateral and tripod pinch by 6# to increase pts independent with opening baggies, containers at PLOF by D/C. Goal:: Pt will report pain no greater than 1/10 with use of affected hand with BADLs and IADLs by d/c. Goal:: Pt will demo increase in fine motor skills by ind. Opening bottle top, tie shoes and manipulate fasteners on coat ind. By dc. Goal:: Pt will demo understanding of joint protection and ergonomics when performing BADLs and IADLs by d/c. Pt will demo understanding of adaptive Equipment use to decrease stress on joints to allow pt to perform BADSL and IADLS at AYAH level. - Rehabilitation General Assessment: pt arrives 10 weeks following fx and demo with limited wrist ROM, strength and increase pain with daily tasks- pt would benefit from skilled OT services 2x week for 8 weeks to increase her ROM and strength to return pt to PLOF- today therapist ed. pt on ROM, ice supportive wrist brace to use when gardening- pt receptive and agree to POC. Rehabilitation Potential: Good - Anticipated Interventions A/AAROM/PROM, Strengthening, Edema Control, Modalities, Orthoses, Joint Protection/Energy Conservation, Ergonomic Education, ADL Training, Education re assistive Equipment, Education re Diagnosis, Home Program - Visit Plan Frequency: 1-2x /Week Duration: 2 Months TEXT: Thank you for the opportunity to evaluate your patient. For Medicare and Medicare HMO plans, please review the plan of care and approve it. It will need to be FAXED BACK to us at [phone] for Medicare purposes. Please let me know if there are questions or concerns regarding this plan of care. Physician Signature: Date:
--- NOTE | 2022-02-04 13:06 | HP.PTDCSUM_ITS ---
It has been my pleasure to treat PIERRE MELENDEZ referred by SIMÓN BATES, with the diagnosis of LUMBAR RADICULOPATHY for a total of 9 visit(s). Discharge Date: 02/04/22 Please see the following information for a summary of their discharge status. Subjective: I MAINLY ONLY HAVE TROUBLE WITH MY BACK WHEN I GET IN BED AT NIGHT BUT IT ONLY TAKES A COUPLE MINUTES TO SETTLE DOWN. REPORTS DOING WELL WITH HEP AND FEELING READY TO BE DISCHARGED. GOING TO CONTINUE OT FOR WRIST. OUT TO EAT LAST TUESDAY AND FORGOT TO TELL THIS PT SHE TRIPPED AND FELL ON CEMENT AND SHE DOESN'T THINK SHE HURT ANYTHING. REPORTS HER LEG IS GETTING STRONGER AND SHE IS GOING UP STEPS BETTER. EPISODE OF LEG WEAKNESS AFTER PROLONGED BENDING IN STANDING PULLING WEEDS. WEAKNESS RESOLVED WITH SITTING. LOW BACK PAIN Pain Intensity (Out of 10): 2 % Improvement: 80 Objective/Function: PATIENT WAS SEEN TODAY FOR RE-ASSESSMENT OF PROGRESS TOWARD THE SET PT GOALS AND THE NEED FOR FURTHER PHYSICAL THERAPY VS READINESS FOR DISCHARGE. PATIENT IS INDEP WITH LAND AND GYM EX PROGRAMS BUT SHE IS A FALL RISK AND LIMITED TO SOME DEGREE WITH BACK REHAB DUE TO L WRIST INJURY. PATIENT IS GOING OUT OF TOWN BUT CONSIDERING USING [employer] MEMBERSHIP WITH UPON RETURN. THIS PT RECOMMENDED STARTING WITH A SILVER SNEAKER CLASS THAT IS SAFE FOR HER BALANCE LIMITATIONS. REINFORCEMENT GIVEN FOR AVOIDANCE OF PROLONGED BENDING, LIFTING AND TWISTING. UPON EXAM TODAY: INDEP GAIT INTO PT WITH STRAIGHT CANE AND NO LOB. ABLE TO TRANSFER INDEP'LY FROM SIT TO STAND WITHOUT UE ASSIST. Motor deficit: SHANNAN LE'S GROSSLY 5/5 WITH MMT'ING EXCEPT SHANNAN HIPS 4/5. Sensory deficit: SHANNAN LE LIGHT TOUCH SENSATION GROSSLY INTACT AND SYMMETRICAL. ROM deficit: TIGHT SHANNAN HIP FLEXORS, HS'S AND GASTROC SOLEUS COMPLEX'S. Dural Signs: NEGATIVE SHANNAN LE'S. Lumbar mvmt loss: flex - MOD. ext - LINDA. R SG - LINDA. L SG - LINDA. Core strength: POOR. Palpation: NO ACUTE LOWER THORACIC, LUMBAR, SACRAL OR SHANNAN HIP TENDERNESS WITH LIGHT PALPATION. Goal 1:: DECREASE C/O LOW BACK AND L HIP PAIN Goal Progress: Goal Met Goal 2:: IMPROVE PERSONAL CARE, LIFTING, WALKING, SITTING, STANDING, AND HOMEMAKING FUNCTION. Goal Progress: Goal Met Goal 3:: INSTRUCT IN PROPHYLAXIS Goal Progress: Goal Met Plan: D/C TO HEP AND FOLLOW UP WITH SURGEON NEEDED. PATIENT AGREEABLE. If there are questions or concerns regarding this patient's physical therapy, please feel free to call me at [phone]. Thank you for the referral of this patient. Sincerely, Alicia Hamilton, PT, Cert MDT Balance/Gait/Functional tests - Balance/Special Test Scores Oswestry Low Back Score: 9
--- NOTE | 2022-03-02 16:35 | HP.OTDCSUM ---
It has been my pleasure to treat PIERRE MELENDEZ under orders from SIMÓN BATES, for the diagnosis of left ulna fx, left low end intra-articular fx. for a total of 10 visit(s). Please see the following information for a summary of their discharge status. 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 L lateral 6#. L tripod 6#. L tip pinch 4#. 18 cm wrist edema. Pt. has participated in MEM, strengthening, ROM, education therapy sessions (10 sessions). Patient Goals: Decrease Pain, Use Hand/Wrist/Arm Normally Again Goal:: PT will demo an increase in rubber boots and shoes repairer strength by 30# to increase independent with basic occupations of daily living to return pt to PLOF by D/C. Pt will demo an increase in lateral and tripod pinch by 6# to increase pts independent with opening baggies, containers at PLOF by D/C. Goal:: Pt will report pain no greater than 1/10 with use of affected hand with BADLs and IADLs by d/c. Goal:: Pt will demo increase in fine motor skills by ind. Opening bottle top, tie shoes and manipulate fasteners on coat ind. By dc. Goal:: Pt will demo understanding of joint protection and ergonomics when performing BADLs and IADLs by d/c. Pt will demo understanding of adaptive Equipment use to decrease stress on joints to allow pt to perform BADSL and IADLS at AYAH level. Plan: DC Discharge Comments: Pt. reported she feels 75% better since eval. Quick dash 17 improved from 43 on eval. Pt. participated 10 therapy sessions. She has met 3 of 5 goals. If there are questions or concerns regarding this patient's occupational therapy, please fell free to call me at [phone]. Thank you for the referral of this patient. Sincerely, Tanya Wagner, OTR/L, CHT
== END 2022-03-02 19:00 | disposition home or self-care (01) ==
LOC: OT 10:00
PROVIDERS: PCP Internal Medicine
DX: M54.16 Radiculopathy, lumbar region (principal); S52.372D Galeazzi's fracture of left radius, subsequent encounter for closed fracture with routine healing; S52.612D Displaced fracture of left ulna styloid process, subsequent encounter for closed fracture with routine healing
CPT/HCPCS: 97035; 97110; 97112; 97140; 97162; 97164; 97166; 97530

== ENCOUNTER 2022-03-14 13:12 | Emergency (ER) | payer MEDICARE, SELFPAY ==
[2022-03-14 13:13] VITALS: BP 149/81; PULSE 74; RESP 14; TEMP 36.2; O2SAT 96; BMI 25.4
--- NOTE | 2022-03-14 13:50 | EDS_ITS ---
HPI HPI - Fall History of Present Illness Chief Complaint: Fall Detail of Chief Complaint: Laceration right lower leg. Occured/Mechanism Occurred: Today Mechanism/Context: Yes same level fall and Yes trip Usually ambulates: Without assistance Pain/Injury Pain Location: lower extremity Current Severity: Mild Maximum Severity: Mild Associated Symptoms Associated Symptoms: Negative for Parasthesias, Weakness, Loss of function, Inability to ambulate, Loss of consciousness or Amnesia Narrative Narrative: 81-year-old female was out in the yard on some gardening tripped and injured her right lower leg. There is a laceration of the proximal lateral aspect of her right lower leg. This occurred within the last 1 to 2 hours. No other injuries. Her tetanus is within the last several years. Tetanus Immunization: <5 years Prior similar symptoms: No Recent Illness/Hospitalization: No PFSH PFSH Medical History Abnormal electrocardiogram DDD (degenerative disc disease), lumbar Essential (primary) hypertension Fibromyalgia GERD (gastroesophageal reflux disease) Glaucoma Hydroureteronephrosis Hyperlipidemia Hypertriglyceridemia IBS (irritable bowel syndrome) Left sided sciatica RLS (restless legs syndrome) Segmental and somatic dysfunction of lumbar region Segmental and somatic dysfunction of pelvic region Senile osteoporosis Seronegative rheumatoid arthritis Home Medications calcium carbonate 600 mg calcium (1,500 mg) tablet 600 mg PO QHS replacement 11/04/14 [History Last Taken 11/12/19] dextrin 3 gram/3.5 gram oral powder 625 gm PO DAILY ibs 11/04/14 [History Last Taken 11/13/19] dicyclomine 10 mg capsule 10 mg PO Q6H PRN PRN Abdominal Pain 11/04/14 [History Last Taken Unknown] lactobacillus combination no.4 3 billion cell capsule 1 ea PO DAILY probiotic 11/04/14 [History Last Taken 11/13/19] latanoprost 0.005 % eye drops 1 drp EACH EYE QHS 11/04/14 [History Last Taken 11/12/19] leflunomide 20 mg tablet 20 mg PO DAILY rheumatoid arthritis 11/04/14 [History Last Taken 11/13/19] multivitamin with folic acid 400 mcg tablet 1 tab PO DAILY replacement 11/04/14 [History Last Taken 11/13/19] omega-3 fatty acids-fish oil 340 mg-1,000 mg capsule 1 ea PO MOWEFR replacement 11/04/14 [History Last Taken 11/12/19] ropinirole 0.25 mg tablet 0.5 mg PO QHS restless legs 11/04/14 [History Last Taken 11/12/19] timolol 0.5 % eye drops 1 drp EACH EYE QHS 11/04/14 [History Last Taken 11/12/19] trazodone 50 mg tablet 25 mg PO QHS sleep 11/04/14 [History Last Taken 11/12/19] atorvastatin 20 mg tablet 10 mg PO QHS cholesterol 10/25/17 [History Last Taken 11/12/19] cholecalciferol (vitamin D3) 50 mcg (2,000 unit) capsule 2,000 unit PO QDAY replacement 10/25/17 [History Last Taken 11/13/19] duloxetine 20 mg capsule,delayed release 40 mg PO QDAY depression 10/25/17 [History Last Taken 11/13/19] atenolol 50 mg tablet 50 mg PO QHS blood pressure 30 days ##30 12/27/17 [History Last Taken 11/12/19] hydrochlorothiazide 12.5 mg capsule 12.5 mg PO PRN PRN htn 11/03/19 [History Last Taken 11/13/19] mometasone-formoterol HFA 200 mcg-5 mcg/actuation aerosol inhaler 2 puff IH BID asthma 11/03/19 [History Last Taken 11/13/19] pregabalin 75 mg capsule 75 mg PO TID pain 11/03/19 [History Last Taken 11/13/19] loratadine 10 mg capsule 10 mg PO DAILY allergies 11/08/19 [History Last Taken 11/13/19] albuterol sulfate 90 mcg/actuation aerosol inhaler 1 puff IH Q6H PRN PRN sob/wheezing 11/14/19 [History Last Taken Unknown] bimatoprost 0.01 % eye drops 1 drp EACH EYE DAILY glaucoma 11/14/19 [History Last Taken Unknown] omeprazole 40 mg capsule,delayed release 40 mg PO DAILY gerd 11/14/19 [History Last Taken Unknown] oxycodone 5 mg tablet 5 mg PO Q6H PRN PRN Pain Or Fever 02/27/20 [History Last Taken Unknown] Allergy/AdvReac Type Severity Reaction Status Date / Time paroxetine Allergy Other Verified 03/14/22 13:13 sulfamethoxazole Allergy Other Verified 03/14/22 13:13 [From ] trimethoprim [From ] Allergy Unknown Verified 03/14/22 13:13 Family History Mother Heart disease Diabetes Brother Diabetes Surgical History History of bladder suspension procedure History of bunionectomy of both great toes History of hysterectomy Hx of lumbar discectomy Social History Smoking Status: Never smoker alcohol intake: never substance use type: does not use caffeine: Yes Type: tea Number of servings: 2 what type of physical activity do you participate in: none seatbelt use: always do you feel safe at home: Yes ROS ROS ED ROS Narrative No recent illness. Review of Systems ROS Unobtainable: Denies due to encephalopathy Constitutional Constitutional ED: Denies chills Eyes Eyes: Denies blurry vision ENT ENT ED: Denies ear pain Cardiovascular Cardiovascular: Denies chest pain Respiratory/Chest Respiratory/Chest: Denies cough Gastrointestinal Gastrointestinal: Denies abdominal pain, nausea or vomiting Genitourinary Genitourinary ED: Denies dysuria Musculoskeletal Musculoskeletal: Denies arthralgias Integumentary Denies abscess Neurologic Neurologic: Denies headache(s) Psychiatric Psychiatric: Denies anxiety Endocrine Endocrinology: Denies polydipsia Hematologic/Lymphatic Hematologic/Lymphatic: Denies easy bleeding Allergic/Immunologic Allergic/Immunologic ED: Denies mouth swelling EXAM Physical Exam Narrative Exam Narrative: Well-appearing 81-year-old female. at bedside. Vital signs are stable afebrile. H EENT exam unremarkable. Pupils round reactive light. No trauma to her face or scalp. Nontender. C-spine nontender. Thoracic and lumbar spine and back nontender. Lungs clear. Heart regular rhythm. Chest wall nontender. Abdomen soft nontender. Girdle is intact. Moving all 4 extremities. Both hips are nontender. Normal flexion-extension of both hips knees and ankles. Dorsi plantarflexion intact. Her right leg below the knee lateral aspect of the lower leg there is about a 4 inch L-shaped laceration. Dried blood. No obvious foreign body. No bony deformity. Otherwise exam unremarkable. She is awake and alert. Const Vital Signs: 03/14/22 13:13 03/14/22 13:26 Temperature 97.2 F L Temperature Source Temporal Pulse Rate 74 Respiratory Rate 14 Respiratory Effort Normal Respiratory Depth Normal Respiratory Pattern Normal Blood Pressure 149/81 H Blood Pressure Mean 103 Pulse Ox 96 Oxygen Delivery Method Room Air Room Air Positive well nourished and well developed; Negative for cachectic, contractures or unkempt General Appearance ED: well developed; Negative for unkempt, cachectic or contractures Nutritional Appearance: Negative for cachectic HEENT Reports normocephalic atraumatic; Negative for trauma, contusion or hematoma Eyes PERRL and EOMs intact bilaterally General Eye ED: Negative for pale conjunctiva or scleral icterus Neck full ROM, no lymphadenopathy and supple General: Negative for tenderness Chest Wall inspection of chest normal and palpation of chest normal Resp normal respiratory effort, no retractions and clear to auscultation bilaterally Auscultation: Negative for rales, rhonchi or wheezes Cardio regular rate, regular rhythm, S1 normal heart sound and S2 normal heart sound Rate: Negative for bradycardia Rhythm: Negative for abnormal rhythm GI non-tender, non-distended and no masses Inspection: Negative for abdominal distention Auscultation: normoactive bowel sounds Palpation: soft; Negative for guarding Back/Spine no CVA tenderness General Back: Negative for CVA tenderness Cervical Spine: Negative for cervical spine tenderness Lumbar Spine / Lower Back: Negative for lumbar spinal tenderness Extremity Extremity Narrative: L-shaped laceration right lower lateral leg approximately 4 inches. Below and lateral to the knee. Normal range of motion. No deformity. No bony tenderne ss. Neuro oriented x3, moves all extremities and no focal motor deficits [place] Coma Scale: document GCS findings Spontaneous Obeys Commands Oriented 15 Psych Appearance: Negative for unkempt Attitude: No agitated Mood & Affect: Negative for depressed Skin Lesions: no lesions Rashes: no rashes Trauma: laceration linear MDM MDM MDM Narrative Medical decision making narrative: 81-year-old female has a laceration right lower leg. Tetanus is up-to-date. Wound will need to be cleaned, explored and closed. Patient doing well after suture repair. Foot is neurovascularly intact. Good hemostasis and wound closure obtained. Suture removal in 10 days. Nurses will clean and dress the wound. Her tetanus is already up-to-date. Procedures Lacerations Right lower leg laceration: Length: 5 in Depth: Sub Q Shape: Irregular L-shaped laceration multiple flaps. Prep: Betadine and Shure-Clens Laceration repair: Foreign material removed, Irrigated, Lidocaine, Local and Skin sutures Number of Sutures/[place]: 13 Suture Information: Ethilon and 4-0 Comment: Right lower leg laceration. Approximately 5 inches in length. L-shaped irregular with multiple flaps. Local anesthetized with lidocaine. Cleaned with both Shur-Clens and and iodine. Explored. I did not see any piece of wood or other foreign body and there was a significant amount of dirt and mulch which I irrigated out. Closed using 13 simple interrupted 4-0 Ethilon sutures. Proper hemostasis wound closure obtained. Patient and were instructed on wound care and suture removal in 10 to 14 days. If any signs of infection seen return. Discharge Plan Triage Chief Complaint: Fall ED Provider: Narciso Jackson Dx/Rx/DC Orders Clinical Impression: Fall, Laceration of leg Instructions: ED Laceration: All Closures Prescriptions: No Action duloxetine 20 mg capsule,delayed release(DR/EC) 40 mg PO QDAY atorvastatin 20 mg tablet 10 mg PO QHS cholecalciferol (vitamin D3) 2,000 unit capsule 2,000 unit PO QDAY atenolol 50 mg tablet 50 mg PO QHS 30 Days Qty: 30 Label Comments: Take 1 tablet by mouth once daily. latanoprost 1 DROP bottle 1 drp EACH EYE QHS Label Comments: EYE HEALTH trazodone 50 MG tablet 25 mg PO QHS Label Comments: SLEEP leflunomide 20 MG tablet 20 mg PO DAILY Label Comments: ARTHRITIS calcium carbonate 600 MG tablet 600 mg PO QHS Label Comments: SUPPLIMENT ropinirole 0.25 MG tablet 0.5 mg PO QHS Label Comments: RESTLESS LEGS dicyclomine 10 MG capsule 10 mg PO Q6H PRN PRN (Reason: Abdominal Pain) Label Comments: DIARRHEA omega-3 fatty acids-fish oil 1 EACH capsule 1 ea PO MOWEFR Label Comments: SUPPLIMENT dextrin 350 GM powder 625 gm PO DAILY Label Comments: IRRITABLE BOWEL multivitamin with folic acid 1 TABLET tablet 1 tab PO DAILY Label Comments: SUPPLIMENT lactobacillus combination no.4 1 EACH capsule 1 ea PO DAILY Label Comments: BOWEL HEALTH timolol 5 ML drops 1 drp EACH EYE QHS Label Comments: EYE HEALTH Rx Instructions: 0.5% hydrochlorothiazide 12.5 MG capsule 12.5 mg PO PRN PRN (Reason: htn) pregabalin 75 MG capsule 75 mg PO TID mometasone-formoterol 13 GM HFA aerosol inhaler 2 puff IH BID loratadine 10 MG capsule 10 mg PO DAILY albuterol sulfate 90 mcg/actuation HFA aerosol inhaler 1 puff IH Q6H PRN PRN (Reason: sob/wheezing) Label Comments: two puffs up to four times a day as needed bimatoprost 1 DROP bottle 1 drp EACH EYE DAILY omeprazole 40 MG capsule,delayed release(DR/EC) 40 mg PO DAILY oxycodone 5 MG tablet 5 mg PO Q6H PRN PRN (Reason: Pain Or Fever) Primary Care Provider: Raghav Torres Referrals: Raghav Torres MD [Primary Care Provider] - 10-14 Days suture removal Activity Restrictions/Additional Instructions: Ice and elevate your leg tonight and tomorrow to decrease pain and swelling. Clean daily with soap and water or peroxide and water. You can shower but do not let it soak in dirty water. Dry thoroughly and carefully because you can tear the stitches out. Apply antibiotic ointment daily. Return if any signs of infection such as pus, redness, swelling or fever. Tylenol for pain. Stitches taken out in 10 to 14 days no sooner. Disposition Disposition: Home, Self Care
[2022-03-14 16:10] VITALS: BP 134/66; PULSE 85; RESP 14; TEMP 36.9; O2SAT 99
== END 2022-03-14 16:11 | disposition home or self-care (01) ==
PROVIDERS: Emergency Provider Emergency Medicine; PCP Internal Medicine; Visit Provider Emergency Medicine
DX: S89.91XA Unspecified injury of right lower leg, initial encounter (principal); W18.30XA Fall on same level, unspecified, initial encounter
CPT/HCPCS: 12002; 99284

== ENCOUNTER → 2022-05-20 | Outpatient (CLI) | payer MEDICARE, SELFPAY ==
--- NOTE | 2022-05-20 10:30 | BI_ITS ---
MAMMOGRAPHY - BILATERAL SCREENING REASON FOR EXAM: Female, 82 years old. Routine annual screening examination. PERTINENT HISTORY: Non-contributory. TECHNIQUE: Digital bilateral breast lizzie (3D mammographic acquisition) in the CC and MLO projections. 2-D mediolateral oblique (MLO) and craniocaudad (CC) views of both breasts were obtained. CAD: Full Field Digital Mammography with Computer Added Detection was performed. COMPARISON: Comparison is made with prior study dated 05/05/2021 and 04/23/2020. FINDINGS: Breast Composition: The breasts are heterogeneously dense, which may obscure small masses. There are no dominant masses or suspicious calcifications. Stable small benign-appearing bilateral axillary lymph nodes. Stable scattered bilateral calcifications. No other significant abnormalities are identified. There has been no significant change since the prior study. BI/SCRN MAMM (CAD)W/LIZZIE BILAT IMPRESSION: Stable bilateral screening mammogram. Yearly follow-up mammogram recommended. (A) ASSESSMENT CATEGORY: BIRADS Category 2: Benign. A letter regarding these results will be sent to the patient by the facility within 30 days. Approximately 10% of breast cancers are not detected by mammography. A normal mammogram should not delay biopsy of a clinically suspicious abnormality. [id number] Electronically Signed: Jey Bustillo MD at 11:18 EDT ,
== END | disposition home or self-care (01) ==
LOC: OPBI 10:29
PROVIDERS: PCP Internal Medicine; Visit Provider Obstetrics & Gynecology
DX: Z12.31 Encounter for screening mammogram for malignant neoplasm of breast (principal)
CPT/HCPCS: 77063; 77067

== ENCOUNTER → 2023-06-15 | Outpatient (CLI) | payer MEDICARE, SELFPAY ==
--- NOTE | 2023-06-15 10:32 | BI_ITS ---
MAMMOGRAPHY - BILATERAL SCREENING REASON FOR EXAM: Female, 83 years old. Routine annual screening examination. PERTINENT HISTORY: Non-contributory. TECHNIQUE: Digital bilateral breast lizzie (3D mammographic acquisition) in the CC and MLO projections. 2-D mediolateral oblique (MLO) and craniocaudad (CC) views of both breasts were obtained. CAD: Full Field Digital Mammography with Computer Added Detection was performed. COMPARISON: Comparison is made with prior study dated May 20, 2022 and May 05, 2021. FINDINGS: Breast Composition: The breasts are heterogeneously dense, which may obscure small masses. There are no dominant masses or suspicious calcifications. Stable small benign-appearing bilateral axillary lymph nodes. Stable scattered bilateral benign-appearing calcifications. No other significant abnormalities are identified. There has been no significant change since the prior study. BI/SCRN MAMM (CAD)W/LIZZIE BILAT IMPRESSION: Stable bilateral screening mammogram. Yearly follow-up mammogram recommended. (A) ASSESSMENT CATEGORY: BIRADS Category 2: Benign. A letter regarding these results will be sent to the patient by the facility within 30 days. Approximately 10% of breast cancers are not detected by mammography. A normal mammogram should not delay biopsy of a clinically suspicious abnormality. [id number] Electronically Signed: Jey Bustillo MD at 12:26 EDT ,
== END | disposition home or self-care (01) ==
PROVIDERS: PCP Internal Medicine; Referring Provider Obstetrics & Gynecology; Visit Provider Obstetrics & Gynecology
DX: Z12.31 Encounter for screening mammogram for malignant neoplasm of breast (principal)
CPT/HCPCS: 77063; 77067

== ENCOUNTER → 2024-02-21 | Outpatient (CLI) | payer MEDICARE, SELFPAY ==
--- NOTE | 2024-02-21 13:08 | BD_ITS ---
STUDY: DUAL ENERGY X-RAY ABSORPTIOMETRY / DXA REASON FOR EXAM: Female, 83 years old. 733.00OsteoporosisBONE DENSITY REASON FOR EXAM TECHNIQUE: Bone Mineral Density (BMD) measurements of lumbar spine and bilateral hips were obtained. COMPARISON: Comparison is made with prior study December 31, 2021. FINDINGS: Lumbar Spine (L1-L4): g/cm2 (0.956) / T-score (-0.2) / Z-score (2.4) Findings are suggestive of normal bone density with a low fracture risk. Left Femur Total: g/cm2 (0.859) / T-score (-0.7) / Z-score (1.5) Left Femoral Neck: g/cm2 (0.686) / T-score (-1.5) / Z-score (0.9) Right Femur Total: g/cm2 (0.842) / T-score (-0.8) / Z-score (1.) Right Femoral Neck: g/cm2 (0.723) / T-score (-1.1) / Z-score (1.3) The T-Scores on the most recent prior examination were: Lumbar Spine (L1-L4): There has been worsening of bone density since the previous examination. Left Femur Total: which represents an improvement of 1.2%. Right Femur Total: which represents a worsening of 3.1%. BD/Dexa Bone Density Study IMPRESSION: The patient is considered osteopenic as outlined below according to World Jose Organization (WHO) criteria with a low fracture risk. There has been of bone density since the previous examination. Reference Information: The T-score is the number of standard deviations above or below the standard which is normal for young adults at their peak bone mineral density. The World Health Organization (WHO) interprets the T-scores as follows: Above -1 Normal bone density Between -1 and -2.5 Osteopenia Equal to / or below -2.5 Osteoporosis As a practical clinical guideline, osteopenia may be graded as follows: Mild -1 through -1.5 Moderate -1.6 through -2.0 Severe -2.1 through -2.4 The Z-score is the number of standard deviations above or below age-matched controls. A Z-score of less than -1.5 would be considered abnormal. References: 1. NIH Osteoporosis and Related Bone Diseases www osteo.org 2. International Society for Clinical Densitometry www iscd.org 3. National Osteoporosis Foundation www nof.org Electronically Signed: Jey Bustillo MD at 15:10 EDT ,
== END | disposition home or self-care (01) ==
LOC: OPBD 13:06
PROVIDERS: PCP Internal Medicine; Visit Provider Nurse Practitioner Adult Health
DX: M81.0 Age-related osteoporosis without current pathological fracture (principal)
CPT/HCPCS: 77080

== ENCOUNTER 2024-06-15 14:30 | Outpatient (RCR) | payer MEDICARE, SELFPAY ==
--- NOTE | 2024-02-16 09:58 | HP.PTEVAL_ITS ---
Patient's Visit Information Visit Information Visit Information: PIERRE MELENDEZ is a 83 year old F referred to Physical Therapy by AMBER ROMERO with a diagnosis of . Date of Evaluation: 02/16/24 Physical Therapist: Marcy Castaneda DPT Visit Plan Frequency: 2x /Week Duration: 4 Weeks Plan: Focus on Functional Mobility, Gait, BALANCE and LE Strength. Pt has [email or web address] membership and would benefit from gym program at end of session HEP Given IE: Kitchen Sink: Marching, SLS, HR/TR, Hip Abd, Hip Add, Hip Extn Subjective Subjective: Patient reports that she has bilateral weakness in her legs- left more than right- for about 6 months. Insidious onset- she had surgery for a pinched nerve. She had back surgery 2020. She has noticed that her weakness and balance have progressively gotten worse. She does use a cane if she is on unfamiliar surfaces and outside in the lawn. She falls periodically- the last time she fell was about a month ago and she scraped up her knee. She falls more if she leans forwards. She is fully I with all of her ADL's. She does not do her own floors and her vaccums but she does the light cleaning. No reports of pain just weakness. She reports that she has Fibro and RA. She feels her balance is worse in the mornings and at night. She uses a night light at night. She has mild dizziness. She does have stairs- she has more issues with the stairs that have carpet. Couple of stairs to enter the home- with a handrail. Bedroom/bathroom on single floor. Lives with who can help. Does have a membership to [employer] but have not gotten around to using it yet. She has a hard time getting up off the floor. She likes to make cards, go antiquing, gardening. Objective Objective: Posture: forward posture, rounded shoulder- can correct but does not maintain Gait: slow reji- decreased step length- no AD HR/TR: able with UE A Balance: see below ROM: WFL in all planes Strength: Core: fair minus: Ankle: 5/5, Knee: Left Extn: 15 Right Extn: 17 Left Flexion: 17 Right Flexion: 18 Hip: Left Flexion:8.0 Right: 7.2 Extn: 22 and 29 Abd 13 bilateral Add: Left: 11 Right: 12 Flex: HS: severe, Gastroc: moderate Balance/Special Test Scores Functional Gait Assessment Score: 13 % Disability: 56.6700 CATSIB Score (Max score 120 seconds): 73 Lower Extremity Functional Score: 52 30 Second Chair Rise Test Seconds: 7 Goals Goal 1:: Patient will be I with HEP and progression Goal Time Frame: 4-6 Weeks Goal 2:: Patient will improve her sit to stand to 12 Goal Time Frame: 4-6 Weeks Goal 3:: Patient will improve her FGA to WFL Goal Time Frame: 4-6 Weeks Goal 4:: Patient will improve her strength by 5 LBS in all areas Goal Time Frame: 4-6 Weeks Goal 5:: Patient will report 80% improvement Goal Time Frame: 4-6 Weeks Rehabilitation Potential Physical Therapy Diagnosis: Patient presents with hypomobility- she has decreased LE and core strength/stabilization, proprioception, flex and muscular endurance leading to decreased balance and increased difficulty with ADL's. Rehabilitation Potential: Good Anticipated Interventions Patient/Client Instruction: Educate patient on: Benefits of Fitness Program Therapeutic Exercise to Include: Strength training, Endurance training, Balance training, Coordination, Body mechanics, Postural training, Gait and locomotor training, Neuromotor development, Dynamic Lumbar Stabilization and Scapular Strength/Stabilization For the Purpose of:: To improve muscle performance and motor function Text: Thank you for the opportunity to evaluate your patient. For Medicare and Medicare HMO plans, please review the plan of care and approve it. It will need to be FAXED BACK to us at [phone] for Medicare purposes. For Medicare only, by signing this I certify the plan of care. Please let me know if there are questions or concerns regarding this plan of care. Physician Signature: Date:
--- NOTE | 2024-05-03 11:28 | HP.PTREVAL_ITS ---
Re-Evaluation Intro: AMBER ROMERO, It has been my pleasure to treat PIERRE MELENDEZ over the last 16 visits for . Please see the progress note below for an update on the physical therapy plan of care! Subjective Subjective: Patient reports that she feels that she is getting better some days- she was able to step in/out of her flower beds the other day. Her reports that he does feel she is getting stronger Objective Objective/Function: Posture: forward posture, rounded shoulder- can correct but does not maintain Gait: slow reji- wide base of support HR/TR: able with UE A Balance: see below ROM: WFL in all planes Strength: Core: fair minus: Ankle: 5/5, Knee: 4/5 Hip: Flexion: 4/5, Extn: 4/5 Abd: 4/5 Add: 4+/5 IR/ER: 4-/5 Flex: HS: severe, Gastroc: moderate Plan Plan Plan: 05/03/24 Continue with POC 2x a week for 4 weeks 03/22/24: Continue with POC 2x a week for 4 weeks IE:Focus on Functional Mobility, Gait, BALANCE and LE Strength. Pt has [employer] membership and would benefit from gym program at end of session HEP Given IE: Kitchen Sink: Marching, SLS, HR/TR, Hip Abd, Hip Add, Hip Extn Balance/Gait/Functional tests Balance/Special Test Scores Functional Gait Assessment Score: 13 % Disability: 56.6700 CATSIB Score (Max score 120 seconds): 90 Lower Extremity Functional Score: 44 30 Second Chair Rise Test Seconds: 7 Goals Goals Goal 1:: Patient will be I with HEP and progression Goal Time Frame: 4-6 Weeks Goal Progress: Progressing Goal 2:: Patient will improve her sit to stand to 12 Goal Time Frame: 4-6 Weeks Goal Progress: Progressing Goal 3:: Patient will improve her FGA to WFL Goal Time Frame: 4-6 Weeks Goal Progress: Progressing Goal 4:: Patient will asc/desc 8 stairs recip with 1 HR Goal Time Frame: 4-6 Weeks Goal Progress: Progressing Goal 5:: Patient will report 80% improvement Goal Time Frame: 4-6 Weeks Goal Progress: Progressing Anticipated Interventions Anticipated Interventions Patient/Client Instruction: Educate patient on: Benefits of Fitness Program Therapeutic Exercise to Include: Strength training, Endurance training, Balance training, Coordination, Body mechanics, Postural training, Gait and locomotor training, Neuromotor development, Dynamic Lumbar Stabilization and Scapular Strength/Stabilization For the Purpose of:: To improve muscle performance and motor function Re-Evaluation Ending Re-evaluation ending: Please do not hesitate to contact me at [phone] by phone or if you have questions or concerns regarding this new plan of care! Sincerely, FIDEL SmallwoodT
--- NOTE | 2024-05-17 12:57 | HP.PTREVAL ---
Re-Evaluation Intro: AMBER ROMERO, It has been my pleasure to treat PIERRE MELENDEZ over the last 20 visits for L peroneal tendinitis. Please see the progress note below for an update on the physical therapy plan of care! Subjective Subjective: Pt. came into PT this date with new script from Dr. Sid SRINIVASAN with L peroneal tendinitis. Pt. reports that her L ankle will ocassionally give out on her. She reports happening ~2-3 per month mostly after prolonged sitting. She describes a inversion ankle motion. She has not fallen due to this, but feels like it could. She reports no other major issues. She is currently coming into PT for her balance as well. Objective Objective/Function: ROM: L ankle: EVR 8deg, DF 8deg. INV 12deg, PF 38deg R ankle DF 12deg, EVR 12deg, INV 12deg, PF 43deg. R ankle: INV 10.3#, EVR 16.0#, DF 17.2#, PF 20.8# L ankle: INV 10.0#, EVR 12.6#, DF 18.8#, PF 26.3# Pt. had difficulty with heel raises bilaterally (reduced ROM), very limited with L SL heel raise compared to R side. GAIT: pt. has a fairly methodical gait pattern, but reports this is due to a previous back injury. He ankle mobility is decent with gait, slight pronation during SLS phase of gait (bilaterally). Pt. has slight early heel off L worse than R resulting in decreased step length bilaterally. STAIRS: Pt. able to complete with 1 HR with reciprocal pattern. Not much pain noted. Early heel off bilaterally. Plan Plan Plan: Pt. will continue with current POC which included balance and LE strengthening. She has silver sneakers and can add gym progression as tolerated. We will add in peroneal strengthening, SLS balance, post tib strengthening as well. She is tight in her B calves I would also like to stretch these as well. I gave her GTB ankle EVR bilaterally, standing calf stretch and standing heel raises with towel between heels for HEP. Progress these as able. Add in some DFM to her distal peroneal tendon prior to stretching/strengthening for her initial few visits then wean from this. Balance/Gait/Functional tests Balance/Special Test Scores Functional Gait Assessment Score: 13 % Disability: 56.6700 CATSIB Score (Max score 120 seconds): 90 Lower Extremity Functional Score: 44 30 Second Chair Rise Test Seconds: 7 Goals Goals Goal 1:: Patient will be I with HEP and progression Goal Time Frame: 4-6 Weeks Goal Progress: Progressing Goal 2:: Patient will improve her sit to stand to 12 Goal Time Frame: 4-6 Weeks Goal Progress: Progressing Goal 3:: Patient will improve her FGA to WFL Goal Time Frame: 4-6 Weeks Goal Progress: Progressing Goal 4:: Patient will asc/desc 8 stairs recip with 1 HR Goal Time Frame: 4-6 Weeks Goal Progress: Progressing Goal 5:: Patient will report 80% improvement Goal Time Frame: 4-6 Weeks Goal Progress: Progressing Goal 6:: LTG: Pt. to have increased B ankle EVR by 5# to increase stability in SLS. Anticipated Interventions Anticipated Interventions Patient/Client Instruction: Educate patient on: Benefits of Fitness Program Therapeutic Exercise to Include: Strength training, Endurance training, Balance training, Coordination, Body mechanics, Postural training, Gait and locomotor training, Neuromotor development, Dynamic Lumbar Stabilization and Scapular Strength/Stabilization For the Purpose of:: To improve muscle performance and motor function Re-Evaluation Ending Re-evaluation ending: Please do not hesitate to contact me at [phone] by phone or if you have questions or concerns regarding this new plan of care! Sincerely, Thong Fernandes DPT
--- NOTE | 2024-06-21 10:56 | HP.PTDCSUM ---
Discharge Summary D/C summary: It has been my pleasure to treat PIERRE MELENDEZ referred by Dr. Rosario Lau DPM, with the diagnosis of L peroneal tendinitis for a total of 28 visit(s). Discharge Date: 06/21/24 Please see the following information for a summary of their discharge status. Subjective Subjective: Patient reports she is feeling off today, tired, headache and weak, states she did not sleep well. Patient leaves for vacation on Tuesday. Pain Back: Pain Intensity (Out of 10): 0 L lateral ankle: Pain Intensity (Out of 10): 0 Overall Improvement % Improvement: 80 Objective Objective/Function: Did well with exercise selection above with focus on balance and ankle strengthening Goals Goal 1:: Patient will be I with HEP and progression Goal Progress: Progressing Goal 2:: Patient will improve her sit to stand to 12 Goal Progress: Progressing Goal 3:: Patient will improve her FGA to WFL Goal Progress: Progressing Goal 4:: Patient will asc/desc 8 stairs recip with 1 HR Goal Progress: Progressing Goal 5:: Patient will report 80% improvement Goal Progress: Progressing Goal 6:: LTG: Pt. to have increased B ankle EVR by 5# to increase stability in SLS. Goal Progress: Progressing Plan Plan: Pt. will continue with current POC which included balance and LE strengthening. She has silver sneakers and can add gym progression as tolerated. We will add in peroneal strengthening, SLS balance, post tib strengthening as well. She is tight in her B calves I would also like to stretch these as well. I gave her GTB ankle EVR bilaterally, standing calf stretch and standing heel raises with towel between heels for HEP. Progress these as able. Add in some DFM to her distal peroneal tendon prior to stretching/strengthening for her initial few visits then wean from this. D/C Information d/c sentence: If there are questions or concerns regarding this patient's physical therapy, please feel free to call me at [phone]. Thank you for the referral of this patient. Sincerely, Thong Elias Sipos, DPT Balance/Gait/Functional tests Balance/Special Test Scores Functional Gait Assessment Score: 26 % Disability: 13.3400 CATSIB Score (Max score 120 seconds): 90 Lower Extremity Functional Score: 59 30 Second Chair Rise Test Seconds: 14 Improvement % Improvement: 80
== END 2024-06-15 19:00 | disposition home or self-care (01) ==
LOC: PT 14:30
PROVIDERS: PCP Internal Medicine; Referring Provider Podiatrist; Visit Provider Podiatrist
DX: R26.9 Unspecified abnormalities of gait and mobility (principal); R53.1 Weakness
CPT/HCPCS: 97110; 97112; 97140; 97162; 97530

== ENCOUNTER → 2024-07-26 | Outpatient (CLI) | payer MEDICARE, SELFPAY ==
--- NOTE | 2024-07-26 09:37 | BI_ITS ---
MAMMOGRAPHY - BILATERAL SCREENING REASON FOR EXAM: Female, 84 years old. Routine annual screening examination. PERTINENT HISTORY: Non-contributory. TECHNIQUE: Digital bilateral breast lizzie (3D mammographic acquisition) in the CC and MLO projections. 2-D mediolateral oblique (MLO) and craniocaudad (CC) views of both breasts were obtained. CAD: Full Field Digital Mammography with Computer Added Detection was performed. COMPARISON: Comparison is made with prior study dated June 15, 2023 and May 20, 2022. FINDINGS: Breast Composition: The breasts are heterogeneously dense, which may obscure small masses. There are no dominant masses or suspicious calcifications. Stable scattered benign-appearing calcifications. No other significant abnormalities are identified. There has been no significant change since the prior study. BI/SCRN MAMM (CAD)W/LIZZIE BILAT IMPRESSION: Stable bilateral screening mammogram. Yearly follow-up mammogram recommended. (A) ASSESSMENT CATEGORY: BIRADS Category 2: Benign. A letter regarding these results will be sent to the patient by the facility within 30 days. Approximately 10% of breast cancers are not detected by mammography. A normal mammogram should not delay biopsy of a clinically suspicious abnormality. [id number] Electronically Signed: Jey Bustillo MD at 10:59 EDT ,
== END | disposition home or self-care (01) ==
LOC: OPBI 09:35
PROVIDERS: PCP Internal Medicine; Referring Provider Internal Medicine; Visit Provider Internal Medicine
DX: Z12.31 Encounter for screening mammogram for malignant neoplasm of breast (principal)
CPT/HCPCS: 77063; 77067

== ENCOUNTER → 2024-09-06 | Outpatient (CLI) | payer MEDICARE, SELFPAY | END | disposition home or self-care (01) | LOC: LAB 11:29 | PROVIDERS: PCP Internal Medicine; Referring Provider Nurse Practitioner Acute Care; Visit Provider Nurse Practitioner Acute Care | DX: Z00.00 Encounter for general adult medical examination without abnormal findings (principal) ==

== ENCOUNTER → 2024-09-08 | Outpatient (CLI) | payer MEDICARE, SELFPAY ==
[2024-09-11 16:08] LABS: Calprotectin, Stool 1070 ug/g (0-120)
== END | disposition home or self-care (01) ==
LOC: LABSPEC 10:45
PROVIDERS: PCP Internal Medicine; Referring Provider Nurse Practitioner Acute Care; Visit Provider Nurse Practitioner Acute Care
DX: R19.7 Diarrhea, unspecified (principal); R19.5 Other fecal abnormalities
CPT/HCPCS: 83993

== ENCOUNTER 2024-10-10 11:17 | Observation (INO) | payer MEDICARE, SELFPAY ==
[2024-10-10] VITALS (10 sets, daily range): BP systolic 99–135; BP diastolic 45–76; PULSE 63–79; RESP 16–20; TEMP 35.3–36.9; O2SAT 93–97; BMI 25.0; BMI 23.0; BMI 23.8
--- NOTE | 2024-10-10 11:38 | ED.VIS.CHEST ---
HPI History of Present Illness Chief Complaint: Chest Pain Narrative Narrative: 84-year-old female past medical history of diabetes, hypertension, hypercholesterolemia presents with left-sided chest pain. She states that she has had intermittent chest pain over the last few weeks at least. Yesterday, she had chest pain on the left side. Sometimes it is worse with deep breathing. Today, she experienced it again but lasted a while longer. It caused her to become nauseated but she did not vomit. She denies any shortness of breath or diaphoresis. It is described more as a sharp stabbing pain that is on her left chest and under her breast as well. Of note, she states she was recently treated for bronchitis and finished prednisone from her primary care provider. She denies any leg swelling associated with this. Does not necessarily pleuritic in nature but perhaps sometimes can be. No exertional component. [facility] Medical History (Updated 10/10/24 @ 14:52 by Grzegorz Willard MD) Anxiety Diabetes Kidney stones Rheumatoid arthritis Non-smoker Hypertension High fecal calprotectin Insect bite Essential (primary) hypertension Hydroureteronephrosis DDD (degenerative disc disease), lumbar Segmental and somatic dysfunction of pelvic region Segmental and somatic dysfunction of lumbar region Abnormal electrocardiogram Hypertriglyceridemia Seronegative rheumatoid arthritis Fibromyalgia Senile osteoporosis Left sided sciatica RLS (restless legs syndrome) GERD (gastroesophageal reflux disease) IBS (irritable bowel syndrome) Hyperlipidemia Glaucoma Home Medications ?Medication ?Instructions ?Recorded ?Last Taken ?Type calcium carbonate 600 mg PO QHS replacement 11/04/14 11/12/19 History dicyclomine 10 mg capsule 10 mg PO Q6H PRN PRN Abdominal Pain 11/04/14 Unknown History lactobacillus combination no.4 3 1 ea PO DAILY probiotic 11/04/14 11/13/19 History billion cell capsule latanoprost 0.005 % eye drops 1 drp EACH EYE QHS 11/04/14 11/12/19 History multivitamin with folic acid 400 1 tab PO DAILY replacement 11/04/14 11/13/19 History mcg tablet omega-3 fatty acids-fish oil 340 1 ea PO MOWEFR replacement 11/04/14 11/12/19 History mg-1,000 mg capsule ropinirole 0.25 mg tablet 0.5 mg PO BID restless legs 11/04/14 11/12/19 History timolol 0.5 % eye drops 1 drp EACH EYE QHS 11/04/14 11/12/19 History atorvastatin 20 mg tablet 10 mg PO QHS cholesterol 10/25/17 11/12/19 History atenolol 50 mg tablet 50 mg PO QHS blood pressure 30 12/27/17 11/12/19 History days ##30 bimatoprost 0.01 % eye drops 1 drp EACH EYE BID glaucoma 11/14/19 Unknown History omeprazole 40 mg capsule,delayed 40 mg PO DAILY gerd 11/14/19 Unknown History release metformin 500 mg tablet 500 mg PO BID 09/06/24 Unknown History pregabalin 75 mg capsule 150 mg PO BID pain 09/06/24 Unknown History trazodone 50 mg tablet 25 mg PO QHS sleep 09/06/24 Unknown History hydrochlorothiazide 25 mg tablet 25 mg PO DAILY 10/10/24 Unknown History planquanial 300 mg PO QPM 10/10/24 Unknown History Allergy/AdvReac Type Severity Reaction Status Date / Time paroxetine Allergy Other Verified 10/10/24 11:23 sulfamethoxazole (From Allergy Other Verified 10/10/24 11:23 Septra) trimethoprim (From Mayra) Allergy Unknown Verified 10/10/24 11:23 Family History Mother Heart disease Diabetes Brother Diabetes Surgical History Hx of lumbar discectomy History of bunionectomy of both great toes History of bladder suspension procedure History of hysterectomy Social History Smoking Status: Never smoker alcohol intake: never substance use type: does not use caffeine: Yes Type: tea Number of servings: 2 what type of physical activity do you participate in: none seatbelt use: always do you feel safe at home: Yes ROS ROS ED ROS Narrative Constitutional: No fever, no chills. HEENT: No sore throat. No neck pain. No rhinorrhea. Cardiovascular: Left-sided sharp and stabbing chest pain. No palpitations. No pedal edema. Respiratory: Chronic cough, no shortness of breath. Abdominal: No abdominal pain. Positive nausea. No vomiting. No problems with bowel movement. Genitourinary: No dysuria. No hematuria. Musculoskeletal: No myalgias. No arthralgias. Neurologic: No headaches. No dizziness. No lightheadedness. Skin: No rash. No change in color. EXAM Physical Exam Narrative Exam Narrative: Afebrile. Vital signs noted. Nontoxic-appearing. Cardiovascular examination reveals a regular rate and rhythm. No chest wall tenderness. No crepitance. Lungs are clear to auscultation bilaterally, moving a good amount of air. Abdomen is soft nontender without guarding or rebound. Positive bowel sounds. No pedal edema. Neurological examination nonfocal and nonlateralizing. Const Vital Signs: 10/10/24 11:22 10/10/24 11:49 10/10/24 12:07 Temperature 98.4 F Temperature Source Temporal Pulse Rate 79 Respiratory Rate 20 H Respiratory Effort Normal Non-Labored Blood Pressure 135/70 H Blood Pressure Mean 91 Pulse Ox 97 Oxygen Delivery Method Room Air Room Air 10/10/24 12:17 10/10/24 13:03 10/10/24 14:00 Temperature Temperature Source Pulse Rate 65 64 Respiratory Rate 18 20 H 16 Respiratory Effort Blood Pressure 109/45 L 107/61 124/63 H Blood Pressure Mean 66 76 83 Pulse Ox 94 93 94 Oxygen Delivery Method Room Air Room Air Heart Score History: Moderately Suspicious ECG: Normal Age: >/= 65 years Risk Factors: 1 or 2 Risk Factors Score: 4 MDM MDM MDM Narrative Medical decision making narrative: The differential diagnosis includes but not limited to ACS versus pulmonary embolism versus pleurisy versus pneumonia. I reviewed her prior EMR and she has not had a stress test since 2018. EKG was obtained and interpreted by myself independently as normal sinus rhythm at 69 bpm without ectopy or acute ST changes. No STEMI. She is not tachycardic or currently hypoxic at 97% on room air so I doubt pulmonary embolism. Chest pain workup was pursued. I reviewed her laboratory work and she has elevated white count of 13.2 which I think is nonspecific, hemoglobin normal at 13.3 with hematocrit 41.6, platelet count normal at 194. BMP is significant for BUN of 27 but normal creatinine 0.71. Initial high-sensitivity troponin is 4. Upon repeat examination, she states the pain was not as severe as it was this morning but she has more dull chest pain intermittently as well as left arm numbness and pain on occasion. I will review her second troponin, but given her age and risk factors, I do feel that she requires observation for serial enzymes and stress testing. Her second troponin returned at 5. She did state that when she walked to the restroom she started to get sharp pain in her chest again. I will discuss patient with the hospitalist, Dr. Garcia, for observation/admission. Patient is in stable condition. After discussion with Dr. Garcia, she would like a D-dimer performed. She added it. This will be checked. If it is elevated and above the age cutoff requirement, she will require CTA for PE. If it is negative, she will require observation. Additionally, if her D-dimer is elevated and her CTA is negative, I still feel she would require observation. Patient will be signed out to the oncoming physician, Dr. Hernández, discussed patient with Dr. Garcia again after D-dimer and further workup. Disposition is pending. She is in stable condition. History & Record Review Discussion w/independent historian: Patient and Family Additional record(s) reviewed:: Prior outpatient record and Prior ED visit Lab Data Attestation: I reviewed the patient's lab results. Labs: Laboratory Results - last 24 hr 10/10/24 10/10/24 11:29 13:47 WBC 13.2 H RBC 4.66 Hgb 13.3 Hct 41.6 MCV 89.3 MCH 28.5 MCHC 32.0 RDW Std Deviation 54.4 H RDW Coeff of Irene 16.8 H Plt Count 194 MPV 11.4 Immature Gran % (Auto) 0.800 Neut % (Auto) 81.0 H Lymph % (Auto) 7.7 L [place] % (Auto) 9.2 Eos % (Auto) 1.1 Baso % (Auto) 0.2 Absolute Neuts (auto) 10.7 H Absolute Lymphs (auto) 1.01 Nucleated RBC % 0 Sodium 140 Potassium 3.9 Chloride 104 Carbon Dioxide 30.0 Anion Gap 6 BUN 27 H Creatinine 0.71 Estim Creat Clear Calc 50.76 Est GFR (MDRD) Af Amer 102 Est GFR (MDRD) Non-Af 84 BUN/Creatinine Ratio 38.2 H Glucose 93 Calcium 9.7 Troponin I High Sens 4 5 Radiography Chest X-Ray - ED: 1 View, Read by ED Physician and Read by Radiologist Diagnostic Testing: Clinical Impression(s) from Imaging Studies Chest X-Ray 10/10/24 12:15 IMPRESSION: No acute abnormality is seen. Electronically Signed: Jey Bustillo MD at 12:52 EST , Management Discussion w/another healthcare provider: Hospitalist Discharge Plan Dx/Rx/DC Orders Clinical Impression: Chest pain, Left arm pain, Hyperlipidemia, Essential (primary) hypertension Disposition Disposition: Acute Care Hospital [facility]
[2024-10-10] MEDS: Aspirin 81 MG TAB.CHEW 324 MG PO (11:50)
[2024-10-10 12:01] LABS: Absolute Lymphocyte Count 1.01 X10^3/uL (0.83-4.51); Absolute Neutrophil Count 10.7 X10^3/uL (2.0-7.7); Basophil# 0.03 X10^3/uL; Basophil% 0.2 % (0-1); Eosinophil# 0.14 X10^3/uL; Eosinophils% 1.1 % (0-5); Hematocrit 41.6 % (37-47); Hemoglobin 13.3 g/dL (12.0-15.0); Lymphocyte # 1.01 X10^3/ul (0.83-4.51); Lymphocyte % 7.7 % (19-41); Mean Corpuscular Hgb 28.5 pg (27.0-32.0); Mean Corpuscular Volume 89.3 fL (81-99); Mean Platelet Vol. 11.4 fl (6.2-12.0); Monocyte# 1.21 X10^3/uL; Monocyte% 9.2 % (0-10); NRBC Flagged by Analyzer 0 % (0-5); Neutrophil # 10.65 X10^3/uL (2.7-7.7); Platelet Count 194 K/mm3 (150-450); RBC Distribution Width CV 16.8 % (11.6-14.6); RBC Distribution Width SD 54.4 fl (35.1-43.9); Red Blood Count 4.66 M/mm3 (4.2-5.4); White Blood Count 13.2 K/mm3 (4.4-11.0)
[2024-10-10 12:10] LABS: Anion Gap 6 (5-15); BUN 27 mg/dL (7-18); BUN/Creat Ratio 38.2 RATIO (10-20); Calcium,Total 9.7 mg/dL (8.5-10.1); Chloride 104 mmol/L (98-107); Creatinine, Serum 0.71 mg/dL (0.55-1.02); EST Glomerular Filtration Rate 84 mL/min (>60); Est Glom Filt Rate - Afr Amer 102 mL/min (>60); Estimated Creatinine Clearance 50.76 ml/min; Glucose 93 mg/dL (74-106); Potassium 3.9 mmol/L (3.5-5.1); Sodium Level 140 mmol/L (136-145); Troponin-I HS (w/2H Reflex) 4 pg/mL (3.0-54.0)
--- NOTE | 2024-10-10 12:15 | RAD_ITS ---
STUDY: X-RAY CHEST REASON FOR EXAM: Female, 84 years old. Chest pain TECHNIQUE: PA and lateral views of the chest. COMPARISON: Comparison is made with prior study of November 04, 2014. FINDINGS: EKG electrodes are seen. The lungs are clear and expanded. There is no demonstrated pleural abnormality. Normal size heart. Normal mediastinum and kel. Normal visualized pulmonary arteries. There is atherosclerotic tortuosity of the aortic arch and descending thoracic aorta. There are diffuse degenerative changes of the visualized thoracic spine. Normal visualized ribs, clavicles, and shoulders. There is no demonstrated abnormality of the visualized soft tissue structures of the upper abdomen. RAD/Chest PA and Lateral IMPRESSION: No acute abnormality is seen. Electronically Signed: Jey Bustillo MD at 12:52 EST ,
[2024-10-10 13:47] LABS: Reflex Troponin-HS? (from REC) Y
[2024-10-10 14:31] LABS: Troponin-I HS 5 pg/mL (3.0-54.0)
--- NOTE | 2024-10-10 15:59 | HP.PCM.HOS_ITS ---
HPI - General General Date of Admission: 10/10/24 Date of Service: 10/10/24 Chief Complaint: Chest pain HPI Narrative PIERRE MELENDEZ, is a 84 F who presented to the emergency department at [facility] on 10/10/2024 with a chief complaint of chest pain. Chest pain is left-sided and sharp in nature. She states she is been having this intermittently over the past several weeks. She also complains that she has some coughing intermittently related to a sinus infection or drainage. She stated she finally came in today because it was more intense than typically had been. It is left-sided and just above her left breast in the costochondral region but intermittently below her left breast as well. She did have some radiation into her left medial upper arm today as well. At this time she only complains of some mild chest pain that was reproducible with palpation of the costochondral junction. She did have a mild episode of nausea with some lightheadedness following 1 episode today. She has had no shortness of breath or exertional dyspnea over the past several weeks. She states she has upcoming sinus surgery in October. She does have a history of diabetes, hypertension, and hyperlipidemia. Vital signs show temperature of 98.4, heart rate 79, blood pressure 135/70, respiratory is 20, and oxygen saturation is 97% on room air. CBC showed a very mild leukocytosis with a white count of 13.2 and a left shift of 81.0. Patient states she has been having treatment for sinus infection. D-dimer was normal at 0.4. Chemistry panel was overtly unremarkable. Troponin was 5 with a delta of 5. EKG was normal sinus rhythm with normal intervals and no ST-T wave changes concerning for acute ischemia. Chest x-ray showed no acute abnormalities. Given her elevated heart score and persistent left-sided pain the decision was made to admit as observation for stress test [facility] Medical History Anxiety Diabetes Kidney stones Rheumatoid arthritis Non-smoker Hypertension High fecal calprotectin Insect bite Essential (primary) hypertension Hydroureteronephrosis DDD (degenerative disc disease), lumbar Segmental and somatic dysfunction of pelvic region Segmental and somatic dysfunction of lumbar region Abnormal electrocardiogram Hypertriglyceridemia Seronegative rheumatoid arthritis Fibromyalgia Senile osteoporosis Left sided sciatica RLS (restless legs syndrome) GERD (gastroesophageal reflux disease) IBS (irritable bowel syndrome) Hyperlipidemia Glaucoma Home Medications ?Medication ?Instructions ?Recorded ?Last Taken ?Type calcium carbonate 600 mg PO QHS replacement 11/04/14 11/12/19 History dicyclomine 10 mg capsule 10 mg PO Q6H PRN PRN Abdominal Pain 11/04/14 Unknown History lactobacillus combination no.4 3 1 ea PO DAILY probiotic 11/04/14 11/13/19 History billion cell capsule latanoprost 0.005 % eye drops 1 drp EACH EYE QHS 11/04/14 11/12/19 History multivitamin with folic acid 400 1 tab PO DAILY replacement 11/04/14 11/13/19 History mcg tablet omega-3 fatty acids-fish oil 340 1 ea PO MOWEFR replacement 11/04/14 11/12/19 History mg-1,000 mg capsule ropinirole 0.25 mg tablet 0.5 mg PO BID restless legs 11/04/14 11/12/19 History timolol 0.5 % eye drops 1 drp EACH EYE QHS 11/04/14 11/12/19 History atorvastatin 20 mg tablet 10 mg PO QHS cholesterol 10/25/17 11/12/19 History atenolol 50 mg tablet 50 mg PO QHS blood pressure 30 12/27/17 11/12/19 History days ##30 bimatoprost 0.01 % eye drops 1 drp EACH EYE BID glaucoma 11/14/19 Unknown History omeprazole 40 mg capsule,delayed 40 mg PO DAILY gerd 11/14/19 Unknown History release metformin 500 mg tablet 500 mg PO BID 09/06/24 Unknown History pregabalin 75 mg capsule 150 mg PO BID pain 09/06/24 Unknown History trazodone 50 mg tablet 25 mg PO QHS sleep 09/06/24 Unknown History hydrochlorothiazide 25 mg tablet 25 mg PO DAILY 10/10/24 Unknown History planquanial 300 mg PO QPM 10/10/24 Unknown History Allergy/AdvReac Type Severity Reaction Status Date / Time paroxetine Allergy Other Verified 10/10/24 11:23 sulfamethoxazole (From Allergy Other Verified 10/10/24 11:23 ) trimethoprim (From ) Allergy Unknown Verified 10/10/24 11:23 Family History Mother Heart disease Diabetes Brother Diabetes Surgical History Hx of lumbar discectomy History of bunionectomy of both great toes History of bladder suspension procedure History of hysterectomy Social History (Updated 10/10/24 @ 16:[address] Clarisa Garcia DO) household members: spouse housing: house Smoking Status: Never smoker alcohol intake: never substance use type: does not use caffeine: Yes Type: tea Number of servings: 2 what type of physical activity do you participate in: none seatbelt use: always do you feel safe at home: Yes ROS Constitutional Constitutional: Denies anorexia, change in weight, chills, fatigue, fever(s), malaise, night sweats, weakness or other Eyes Eyes: Denies blurry vision, change in eye color, change in vision, discharge from eye(s), double vision, erythema, eye pain, loss of vision or other ENT HEENT: Reports nasal congestion, nasal discharge, post nasal drip and sinus pressure; Denies abnormal hearing, dysphagia, ear pain, epistaxis, headache(s), hearing loss, sore throat or other Cardiovascular Cardiovascular: Reports chest pain; Denies claudication, dyspnea on exertion, edema, lightheadedness, orthopnea, palpitations, paroxysmal nocturnal dyspnea, rapid heart rate, syncope or other Respiratory/Chest Respiratory/Chest: Denies cough, dyspnea, excessive phlegm production, hemoptysis, productive cough, shortness of breath at rest, shortness of breath with exertion, wheezing or other Gastrointestinal Gastrointestinal: Reports nausea; Denies abdominal pain, coffee ground emesis, constipation, diarrhea, dyspepsia, hematemesis, hematochezia, loose stools, melena, vomiting or other Genitourinary Genitourinary: Denies burning urination, difficulty urinating, dysuria, hematuria, nocturia, urinary frequency, urinary hesitancy, urinary incontinence, urinary urgency or other Musculoskeletal Musculoskeletal: Denies arthralgias, back pain, joint pain, joint stiffness, joint swelling, myalgias, neck pain or other Neurologic Neurologic: Denies abnormal gait, abnormal speech, confusion, disequilibrium, dizziness, focal weakness, headache(s), numbness, paresthesias, seizure-like activity, seizures, syncope, tingling, tremor(s) or other Psychiatric Psychiatric: Denies anxiety, depression, homicidal ideation, suicidal ideation or other Endocrine Endocrinology: Denies change in body appearance, cold intolerance, excessive sweating, heat intolerance, polydipsia, polyuria or other Hematologic/Lymphatic Hematologic/Lymphatic: Denies anemia, easy bleeding, easy bruising, lymphadenopathy or other Allergic/Immunologic Allergic/Immunologic: Denies rhinitis, hives, eczemia, asthma or other Vital Signs Vital Signs Vital Signs: 10/10/24 11:22 10/10/24 11:49 10/10/24 12:07 Temperature 98.4 F Temperature Source Temporal Pulse Rate 79 Respiratory Rate 20 H Respiratory Effort Normal Non-Labored Blood Pressure 135/70 H Blood Pressure Mean 91 Pulse Ox 97 Oxygen Delivery Method Room Air Room Air 10/10/24 12:17 10/10/24 13:03 10/10/24 14:00 Temperature Temperature Source Pulse Rate 65 64 Respiratory Rate 18 20 H 16 Respiratory Effort Blood Pressure 109/45 L 107/61 124/63 H Blood Pressure Mean 66 76 83 Pulse Ox 94 93 94 Oxygen Delivery Method Room Air Room Air 10/10/24 15:00 Temperature Temperature Source Pulse Rate Respiratory Rate Respiratory Effort Blood Pressure 99/76 Blood Pressure Mean 83 Pulse Ox Oxygen Delivery Method Weight Weight: 70.2 kg Body Mass Index (BMI) 25.0 Physical Exam Const alert, oriented x3, no apparent distress, average body habitus, healthy appearing and well nourished Constitutional Narrative: elderly, white female, sitting up in bed, at the bedside, currently appears comfortable, nontoxic General Appearance: cooperative HEENT normocephalic, head/scalp atraumatic, hearing grossly normal bilaterally and moist oral mucous membranes HEENT Narrative: Mallampati 2, no thrush Eyes EOMs intact bilaterally and conjunctivae normal Eyes Narrative: No scleral icterus Neck supple Neck Narrative: Trachea midline, no thyroid enlargement Resp normal respiratory effort, no retractions, no use of accessory muscles and clear to auscultation bilaterally Auscultation: Negative for rales, rhonchi or wheezes Cardio regular rate, regular rhythm, S1 normal heart sound, S2 normal heart sound, no murmurs, no rub, no gallops and no clicks Cardio Narrative: Pain with palpation of the costochondral junction caudally on the left GI normal to inspection, nondistended, normoactive bowel sounds, soft to palpation and non-tender Extremity no clubbing, cyanosis or edema Extremity Narrative: 2+ pedal pulses, 2+ radial pulses Neuro oriented x3, moves all extremities and no focal motor deficits Speech: speech normal Psych affect normal Psych Narrative: Appears comfortable, nontoxic Mood & Affect: anxious Results Lab / Micro Data 10/10/24 11:29 10/10/24 11:29 Labs: Laboratory Results - last 24 hr 10/10/24 11:20: D-Dimer Quant (PE/DVT) 0.40 10/10/24 11:29: WBC 13.2 H, RBC 4.66, Hgb 13.3, Hct 41.6, MCV 89.3, MCH 28.5, MCHC 32.0, RDW Std Deviation 54.4 H, RDW Coeff of Irene 16.8 H, Plt Count 194, MPV 11.4, Immature Gran % (Auto) 0.800, Neut % (Auto) 81.0 H, Lymph % (Auto) 7.7 L, [place] % (Auto) 9.2, Eos % (Auto) 1.1, Baso % (Auto) 0.2, Absolute Neuts (auto) 10.7 H, Absolute Lymphs (auto) 1.01, Nucleated RBC % 0, Sodium 140, Potassium 3.9, Chloride 104, Carbon Dioxide 30.0, Anion Gap 6, BUN 27 H, Creatinine 0.71, Estim Creat Clear Calc 50.76, Est GFR (MDRD) Af Amer 102, Est GFR (MDRD) Non-Af 84, BUN/Creatinine Ratio 38.2 H, Glucose 93, Calcium 9.7, Troponin I High Sens 4 10/10/24 13:47: Troponin I High Sens 5 Imaging Radiology Impression Chest X-Ray 10/10/24 12:15 IMPRESSION: No acute abnormality is seen. Electronically Signed: Jey Bustillo MD at 12:52 EST , Assessment & Plan Assessment/Plan (1) Chest pain: (2) Left arm pain: PLAN: Plan Chest pain/left arm pain -Seems to be costochondral with the chest/arm pain less clear etiology but not present at the time of my evaluation -Initial troponin and delta are normal we will continue to cycle -Check lipids -Check A1c -Check stress test in a.m. -Monitor on telemetry -If stress test is negative would likely treat as costochondritis Sinus issues -Patient states she has upcoming sinus surgery in October -ENT follow-up as an outpatient DM-2 -Hold home oral agents -SSI as ordered -Accu-Cheks as ordered -Check A1c -Cardiac/carb controlled diet Essential hypertension/hyperlipidemia -Check lipid panel next-continue home statin at 10 mg nightly for now -Continue home atenolol -Continue home HCTZ Diabetic neuropathy -Continue home Lyrica IBS Open continue home medication next Glaucoma -Continue home eyedrops Restless leg syndrome -Continue home ropinirole Insomnia -Continue home trazodone RA -Continue home Plaquenil DVT prophylaxis -Subcu Lovenox 40 daily CODE STATUS Full code as verified on admission Charges/Coding Visit Charges Inpatient E&M: 30872 Init Hosp L2
[2024-10-10 19:30] LABS: Troponin-I HS < 3 pg/mL (3.0-54.0)
[2024-10-10] MEDS: Atenolol 50 MG Tablet PO (21:33)
[2024-10-10] MEDS: Hydroxychloroquine 200 MG Tablet 300 MG PO (21:33)
[2024-10-10] MEDS: Pregabalin 75 MG Capsule 150 MG PO (21:33)
[2024-10-10] MEDS: traZODone 50 MG Tablet 25 MG PO (21:34)
[2024-10-10] MEDS: Pramipexole Di-HCl 0.25 MG Tablet PO (21:34)
[2024-10-10] MEDS: Atorvastatin Calcium 10 MG Tablet PO (21:34)
[2024-10-10] MEDS: Timolol 0.5% 5ML OPTH.BTL 1 DRP EACH EYE (21:38)
[2024-10-10] MEDS: Latanoprost 0.005% 1 Bottle 1 DRP EACH EYE (21:38)
[2024-10-10 22:12] LABS: Bedside Glucose 120 mg/dL (74-106)
[2024-10-11 05:53] LABS: Absolute Lymphocyte Count 1.52 X10^3/uL (0.83-4.51); Basophil# 0.02 X10^3/uL; Basophil% 0.2 % (0-1); Eosinophil# 0.16 X10^3/uL; Eosinophils% 1.8 % (0-5); Hematocrit 37.2 % (37-47); Hemoglobin 11.9 g/dL (12.0-15.0); Lymphocyte # 1.52 X10^3/ul (0.83-4.51); Lymphocyte % 17.5 % (19-41); Mean Corpuscular Hgb 28.7 pg (27.0-32.0); Mean Corpuscular Volume 89.6 fL (81-99); Mean Platelet Vol. 11.2 fl (6.2-12.0); Monocyte% 10.4 % (0-10); NRBC Flagged by Analyzer 0 % (0-5); Neutrophil # 6.03 X10^3/uL (2.7-7.7); Neutrophil % 69.4 % (47-70); Platelet Count 164 K/mm3 (150-450); RBC Distribution Width CV 16.5 % (11.6-14.6); RBC Distribution Width SD 54.3 fl (35.1-43.9); Red Blood Count 4.15 M/mm3 (4.2-5.4); White Blood Count 8.7 K/mm3 (4.4-11.0)
[2024-10-11] MEDS: Aspirin E.C. 81 MG Tablet PO (06:32)
[2024-10-11 06:40] VITALS: BP 109/69; PULSE 64; RESP 16; TEMP 36.7; O2SAT 93
[2024-10-11 07:04] LABS: Bedside Glucose 104 mg/dL (74-106)
[2024-10-11 07:33] LABS: ALB/GLOB Ratio 0.9 RATIO (0.9-2.4); AST(SGOT) 14 U/L (15-37); Alanine Aminotransfer ALT/SGPT 18 U/L (13-56); Albumin, Serum 2.9 g/dL (3.2-5.0); Alkaline Phosphatase 94 U/L (45-117); Anion Gap 5 (5-15); BUN 21 mg/dL (7-18); BUN/Creat Ratio 32.3 RATIO (10-20); Calcium,Total 8.8 mg/dL (8.5-10.1); Chloride 106 mmol/L (98-107); Cholesterol 106 mg/dL (200); Creatinine, Serum 0.65 mg/dL (0.55-1.02); EST Glomerular Filtration Rate 93 mL/min (>60); Est Glom Filt Rate - Afr Amer 112 mL/min (>60); Estimated Creatinine Clearance 48.79 ml/min; Globulin 3.1 g/dL (2.2-4.2); Glucose 113 mg/dL (74-106); High Density Lipoprotein 61 mg/dL; Magnesium 2.1 mg/dL (1.6-2.6); Phosphorus 3.7 mg/dL (2.5-4.9); Potassium 3.6 mmol/L (3.5-5.1); Sodium Level 140 mmol/L (136-145); Triglycerides 129 mg/dL; Very Low Density Lipoprotein 26 mg/dL (5-40)
--- NOTE | 2024-10-11 10:27 | STRESSREP ---
Stress Test Report Date: 10/11/2024 Procedure: Pharmacologic stress nuclear imaging study Indications: Chest pain Consent: Per the patient Procedure: The patient underwent pharmacologic (Regadenoson 0.4mg ) evaluation with a peak heart rate of 83 beats per minute (60%predicted maximal heart rate) and a peak blood pressure of 134/70 mmHg. The baseline ECG demonstrated sinus rhythm. The peak pharmacologic ECG demonstrated no ischemic changes. There were no cardiac dysrhythmias pretest, during pharmacologic infusion, or recovery. There was no complaint of chest discomfort during pharmacologic infusion or recovery. The patient was injected with 12.0 millicuries of technetium 99m Cardiolite and subsequently rest SPECT Cardiolite nuclear imaging was obtained in the horizontal long, vertical long, and short axis views. The patient underwent pharmacologic (Regadenoson) evaluation. The patient was injected with 34.3 millicuries of technetium 99m Cardiolite and subsequently stress SPECT Cardiolite nuclear imaging was obtained in the horizontal long, vertical long, and short axis views. A gated Cardiolite study at peak stress was obtained. The examination was stopped secondary to completion of protocol. Rest and stress SPECT Cardiolite nuclear imaging status post realignment, normalization, and attenuation correction demonstrate mildly reduced perfusion of the apex both at rest and post pharmacological stress. With normal wall motion, consider attenuation artifact there is end systolic thickening and brightening. The gated Cardiolite study demonstrates myocardial thickening and inward wall motion. The reported LVEF is 72%. Impression: 1. Pharmacologic (Regadenoson) evaluation 2. Peak pharmacologic ECG with no ischemic changes. 3. There were no cardiac dysrhythmias pretest, during pharmacologic infusion, or recovery. 5. Rest and stress SPECT Cardiolite nuclear imaging demonstrate relative uniform tracer uptake and myocardial perfusion appearing within normal limits. 6. The gated Cardiolite study reports an LVEF of 72%. This note was generated with [employer] software. It may contain incorrect words, spelling, and punctuation that were not noted in checking the note before signing.
[2024-10-11 10:39] VITALS: BP 121/51; PULSE 63; RESP 16; TEMP 36.7; O2SAT 94
[2024-10-11] MEDS: hydroCHLOROthiazide 25 MG Tablet PO (10:45)
[2024-10-11] MEDS: Pantoprazole Sodium 40 MG Tablet PO (10:46)
[2024-10-11] MEDS: Pramipexole Di-HCl 0.25 MG Tablet PO (10:46)
[2024-10-11] MEDS: Multivitamins,Therapeutic Tablet 1 TABLET PO (10:46)
[2024-10-11] MEDS: Lactobacillis Acidophilus 1 CAP PO (10:46)
[2024-10-11] MEDS: Pregabalin 75 MG Capsule 150 MG PO (10:52)
[2024-10-11] MEDS: 0.9% Saline Lock 10 ML Syringe IV (10:52)
--- NOTE | 2024-10-11 11:11 | PCM.PN.HOSP ---
Reason for Visit Reason for Visit: Diagnoses Pain in left arm (10/10/24) Chest pain, unspecified (10/10/24) Objective Data Objective Data Vital Signs: Vital Signs Temp Pulse Resp BP Pulse Ox O2 Del Method 98.0 F 63 16 121/51 H 94 Room Air 10/11/24 10:39 10/11/24 10:39 10/11/24 10:39 10/11/24 10:39 10/11/24 10:39 10/11/24 10:39 Oxygen Delivery Method Room Air Weight: 143 lb Body Mass Index (BMI) 23.8 Lab / Micro Data 10/11/24 05:30 10/11/24 05:30 Labs: Laboratory Results - last 24 hr 10/10/24 11:20: D-Dimer Quant (PE/DVT) 0.40 10/10/24 11:29: WBC 13.2 H, RBC 4.66, Hgb 13.3, Hct 41.6, MCV 89.3, MCH 28.5, MCHC 32.0, RDW Std Deviation 54.4 H, RDW Coeff of Irene 16.8 H, Plt Count 194, MPV 11.4, Immature Gran % (Auto) 0.800, Neut % (Auto) 81.0 H, Lymph % (Auto) 7.7 L, [place] % (Auto) 9.2, Eos % (Auto) 1.1, Baso % (Auto) 0.2, Absolute Neuts (auto) 10.7 H, Absolute Lymphs (auto) 1.01, Nucleated RBC % 0, Sodium 140, Potassium 3.9, Chloride 104, Carbon Dioxide 30.0, Anion Gap 6, BUN 27 H, Creatinine 0.71, Estim Creat Clear Calc 50.76, Est GFR (MDRD) Af Amer 102, Est GFR (MDRD) Non-Af 84, BUN/Creatinine Ratio 38.2 H, Glucose 93, Calcium 9.7, Troponin I High Sens 4 10/10/24 13:47: Troponin I High Sens 5 10/10/24 19:06: Troponin I High Sens < 3 L 10/10/24 21:41: POC Glucose 120 H 10/11/24 05:30: WBC 8.7, RBC 4.15 L, Hgb 11.9 L, Hct 37.2, MCV 89.6, MCH 28.7, MCHC 32.0, RDW Std Deviation 54.3 H, RDW Coeff of Irene 16.5 H, Plt Count 164, MPV 11.2, Immature Gran % (Auto) 0.700, Neut % (Auto) 69.4, Lymph % (Auto) 17.5 L, [place] % (Auto) 10.4 H, Eos % (Auto) 1.8, Baso % (Auto) 0.2, Absolute Neuts (auto) 6.0, Absolute Lymphs (auto) 1.52, Nucleated RBC % 0, Sodium 140, Potassium 3.6, Chloride 106, Carbon Dioxide 29.0, Anion Gap 5, BUN 21 H, Creatinine 0.65, Estim Creat Clear Calc 48.79, Est GFR (MDRD) Af Amer 112, Est GFR (MDRD) Non-Af 93, BUN/Creatinine Ratio 32.3 H, Glucose 113 H, Calcium 8.8, Phosphorus 3.7, Magnesium 2.1, Total Bilirubin 0.40, AST 14 L, ALT 18, Alkaline Phosphatase 94, Total Protein 6.0 L, Albumin 2.9 L, Globulin 3.1, Albumin/Globulin Ratio 0.9, Triglycerides 129, Cholesterol 106, LDL Cholesterol 19, VLDL Cholesterol 26, HDL Cholesterol 61 10/11/24 06:38: POC Glucose 104 Radiography Diagnostic Testing: Radiology Impression Chest X-Ray 10/10/24 12:15 IMPRESSION: No acute abnormality is seen. Electronically Signed: Jey Bustillo MD at 12:52 EST Reading Location ID and State: [facility] / [place] , Service support , Assessment & Plan Assessment/Plan (1) Chest pain: (2) Left arm pain: PLAN: Plan Chest pain/left arm pain -Seems to be costochondral with the chest/arm pain less clear etiology but not present at the time of my evaluation -Initial troponin and delta are normal we will continue to cycle -Check lipids -Check A1c -Check stress test in a.m. -Monitor on telemetry -If stress test is negative would likely treat as costochondritis Sinus issues -Patient states she has upcoming sinus surgery in October -ENT follow-up as an outpatient DM-2 -Hold home oral agents -SSI as ordered -Accu-Cheks as ordered -Check A1c -Cardiac/carb controlled diet Essential hypertension/hyperlipidemia -Check lipid panel next-continue home statin at 10 mg nightly for now -Continue home atenolol -Continue home HCTZ Diabetic neuropathy -Continue home Lyrica IBS Open continue home medication next Glaucoma -Continue home eyedrops Restless leg syndrome -Continue home ropinirole Insomnia -Continue home trazodone RA -Continue home Plaquenil DVT prophylaxis -Subcu Lovenox 40 daily CODE STATUS Full code as verified on admission
--- NOTE | 2024-10-11 11:19 | DCINST_ITS ---
Discharge Instructions Diet Discharge Diet: 2000 mg Sodium Diet DC O2, CPAP, BIPAP needs Home O2 Discharge instructions: No Dressing / Incision Discharge Activity: Return to Normal Activity Weight Bearing Status: Weight bearing as tolerated Dressing / Incision Call your doctor if you observe: Fever of 101 or Higher, Coldness, Increased Pain, Numbness or Tingling, Change in Color, Inability to urinate, Inability to have a bowel movement, Using more than 1 pad per hour, Shortness of breath, Dizziness, Fainting spells, Swelling in the ankles, Chest pain, Prolonged hiccupping, Increased palpitations (irregular heartbeat) and Calf discomfort Follow Up Care When: IN 2 WEEKS Test Results: Test results from this visit will be discussed in further detail at your follow- up appointment, if applicable. Discharge Plan Admission Admit Date/Time: 10/10/24 15:53 Attending Provider: Tyron Cummings Primary Care Provider: Raghav Torres Consulting Providers: Clarisa Garcia Discharge Orders/Prescriptions Prescriptions: Continued atorvastatin 20 mg tablet 10 mg PO QHS atenolol 50 mg tablet 50 mg PO QHS 30 Days Qty: 30 Patient Comments: Take 1 tablet by mouth once daily. metformin 500 mg tablet 500 mg PO BID latanoprost 1 DROP bottle 1 drp EACH EYE QHS Patient Comments: E[facility] HEALTH calcium carbonate 600 MG tablet 600 mg PO QHS Patient Comments: SUPPLIMENT ropinirole 0.25 MG tablet 0.5 mg PO BID Patient Comments: RESTLESS LEGS and may take 0.5 mg as needed in the evening. Rx Instructions: takes the 2nd dose at 1700 dicyclomine 10 MG capsule 10 mg PO Q6H PRN PRN (Reason: Abdominal Pain) Patient Comments: DIARRHEA omega-3 fatty acids-fish oil 1 EACH capsule 1 ea PO MOWEFR Patient Comments: SUPPLIMENT multivitamin with folic acid 1 TABLET tablet 1 tab PO DAILY Patient Comments: SUPPLIMENT lactobacillus combination no.4 1 EACH capsule 1 ea PO DAILY Patient Comments: [facility] timolol 5 ML drops 1 drp EACH EYE QHS Patient Comments: [facility] Rx Instructions: 0.5% trazodone 50 mg tablet 25 mg PO QHS Patient Comments: SLEEP pregabalin 75 mg capsule 150 mg PO BID bimatoprost 1 DROP bottle 1 drp EACH EYE BID omeprazole 40 MG capsule,delayed release(DR/EC) 40 mg PO DAILY planquanial 300 mg PO QPM Patient Comments: takes 300 mg 1.5 tabs at hs. hydrochlorothiazide 25 mg tablet 25 mg PO DAILY Referrals / Follow Up: Raghav Torres MD [Primary Care Provider] - Within 2 Weeks Disposition Disposition (needs filled in before D/C Order can be placed): Home, Self Care
[2024-10-11 11:20] LABS: Bedside Glucose 95 mg/dL (74-106)
--- NOTE | 2024-10-11 11:28 | PCM.DC.SUM ---
Providers Date of Admission: 10/10/24 Date of Discharge: 10/11/24 Primary Care Physician: Dr. Raghav Torres MD Reason For Visit: CHEST PAIN Diagnosis Discharge Diagnosis (1) Chest pain: Status: Acute Code(s): R07.9 - Chest pain, unspecified (2) Left arm pain: Status: Acute Code(s): M79.602 - Pain in left arm Plan This 84-year-old female was admitted with left inframammary pain with radiation to left arm pain. Denies any significant shortness of breath acid with that. Denies prior cardiac disease. Chest pain/left arm pain most likely due to costochondral pain: Troponins were normal. Patient had nuclear stress test which was negative for acute ischemia. Patient advised low-dose Motrin 400 mg 3 times daily as needed [id number] for 2 to 3 days for pain. She also has chronic sinusitis and stated she she had a scheduled for sinus surgery in October with ENT as an outpatient. Patient had pharmacological nuclear stress test. EKG and nuclear stress was negative for stress-induced ischemia. Sinus issues -Patient states she has upcoming sinus surgery in October -ENT follow-up as an outpatient DM-2: A1c 6.1. Home medications resumed. Patient discharged on her home oral hypoglycemic medications - Essential hypertension/hyperlipidemia: Lipid profile LDL 19 within normal limit. Blood pressure normal -Continue home atenolol -Continue home HCTZ Diabetic neuropathy -Continue home Lyrica IBS Open continue home medication next Glaucoma -Continue home eyedrops Restless leg syndrome -Continue home ropinirole Insomnia -Continue home trazodone RA -Continue home Plaquenil DVT prophylaxis -Subcu Lovenox 40 daily CODE STATUS Full code as verified on admission Medications at Discharge Home Medications calcium carbonate 600 mg PO QHS replacement 11/04/14 dicyclomine 10 mg capsule 10 mg PO Q6H PRN PRN Abdominal Pain 11/04/14 lactobacillus combination no.4 3 billion cell capsule 1 ea PO DAILY probiotic 11/04/14 latanoprost 0.005 % eye drops 1 drp EACH EYE QHS 11/04/14 multivitamin with folic acid 400 mcg tablet 1 tab PO DAILY replacement 11/04/14 omega-3 fatty acids-fish oil 340 mg-1,000 mg capsule 1 ea PO MOWEFR replacement 11/04/14 ropinirole 0.25 mg tablet 0.5 mg PO BID restless legs 11/04/14 timolol 0.5 % eye drops 1 drp EACH EYE QHS 11/04/14 atorvastatin 20 mg tablet 10 mg PO QHS cholesterol 10/25/17 atenolol 50 mg tablet 50 mg PO QHS blood pressure 30 days ##30 12/27/17 bimatoprost 0.01 % eye drops 1 drp EACH EYE BID glaucoma 11/14/19 omeprazole 40 mg capsule,delayed release 40 mg PO DAILY gerd 11/14/19 metformin 500 mg tablet 500 mg PO BID 09/06/24 pregabalin 75 mg capsule 150 mg PO BID pain 09/06/24 trazodone 50 mg tablet 25 mg PO QHS sleep 09/06/24 hydrochlorothiazide 25 mg tablet 25 mg PO DAILY 10/10/24 planquanial 300 mg PO QPM 10/10/24 Physical Exam Narrative Seen and examined. Still complaining of mild persistent left inframammary pain. No specific aggravating or relieving factor. Physical exam: General: Alert, Oriented x3, Cooperative HEENT: Chronic sinusitis atraumatic, PERRLA, EOMI, Normocephalic Oral: No Gingival or Mucosal Lesions/ Ulcerations Neck: Supple, No JVD, Negative Carotid Bruits Chest wall/Lungs: Air entry equal in bilateral lung bases. No crepitation/rhonchi Cardiovascular: Regular rate, Regular Rhythm, Normal S1, Normal S2, No M/G/R Abdomen: Bowel Sounds Present, Soft, Non Tender, Non-Distended : No dysuria. No renal angle tenderness. No suprapubic tenderness. Extremities: No edema, Capillary Refill Less than 3 Seconds Skin: No rashes, No breakdown Musculoskeletal: No Tenderness to Palpation of Joints or Extremities Neurological: Cranial nerves II-XII grossly intact, DTR 2+/4. No acute focal neurological deficit. Psych/Mental Status: Normal Affect, Appropriate. Weight / BMI Weight Weight: 143 lb Body Mass Index (BMI) 23.8 ABG / Lab / Microbiology Data 10/11/24 05:30 10/11/24 05:30 Laboratory: Laboratory Results - last 24 hr 10/10/24 19:06: Troponin I High Sens < 3 L 10/10/24 21:41: POC Glucose 120 H 10/11/24 05:30: WBC 8.7, RBC 4.15 L, Hgb 11.9 L, Hct 37.2, MCV 89.6, MCH 28.7, MCHC 32.0, RDW Std Deviation 54.3 H, RDW Coeff of Irene 16.5 H, Plt Count 164, MPV 11.2, Immature Gran % (Auto) 0.700, Neut % (Auto) 69.4, Lymph % (Auto) 17.5 L, Johnston % (Auto) 10.4 H, Eos % (Auto) 1.8, Baso % (Auto) 0.2, Absolute Neuts (auto) 6.0, Absolute Lymphs (auto) 1.52, Nucleated RBC % 0, Sodium 140, Potassium 3.6, Chloride 106, Carbon Dioxide 29.0, Anion Gap 5, BUN 21 H, Creatinine 0.65, Estim Creat Clear Calc 48.79, Est GFR (MDRD) Af Amer 112, Est GFR (MDRD) Non-Af 93, BUN/Creatinine Ratio 32.3 H, Glucose 113 H, Hemoglobin A1c 6.1 H, Calcium 8.8, Phosphorus 3.7, Magnesium 2.1, Total Bilirubin 0.40, AST 14 L, ALT 18, Alkaline Phosphatase 94, Total Protein 6.0 L, Albumin 2.9 L, Globulin 3.1, Albumin/Globulin Ratio 0.9, Triglycerides 129, Cholesterol 106, LDL Cholesterol 19, VLDL Cholesterol 26, HDL Cholesterol 61 10/11/24 06:38: POC Glucose 104 10/11/24 10:55: POC Glucose 95 Radiography Diagnostic Testing: Radiology Impression Chest X-Ray 10/10/24 12:15 IMPRESSION: No acute abnormality is seen. Electronically Signed: Jey Bustillo MD at 12:52 EST , D/C Instructions Discharge Diet: 2000 mg Sodium Diet Weight Bearing Status: Weight bearing as tolerated Call your doctor if you observe: Fever of 101 or Higher, Coldness, Increased Pain, Numbness or Tingling, Change in Color, Inability to urinate, Inability to have a bowel movement, Using more than 1 pad per hour, Shortness of breath, Dizziness, Fainting spells, Swelling in the ankles, Chest pain, Prolonged hiccupping, Increased palpitations (irregular heartbeat) and Calf discomfort DC O2, CPAP, BIPAP Needs Home O2 Discharge instructions: No When: IN 2 WEEKS Meaningful Use Info Meaningful Use Meaningful Use Diagnoses (Choose all that apply): None applicable Ischemic Stroke Statin Dosing Therapy Reference: STATIN DOSE THERAPY REFERENCE: * Patients > 75 years receive moderate or high dose statin therapy. * Patients 75 years or YOUNGER should receive HIGH intensity statin dose unless contraindicated. You will be required to document reason for non-treatment if statin daily dose does not meet guidelines. HIGH DOSE STATIN THERAPY DAILY Atorvastatin > than or = to 40 mg Rosuvastatin > than or = to 20 mg Amlodipine + Atorvastatin > than or = to 2.5/40 mg Ezetimibe + Simvastatin 10/80 mg Simvastatin 80mg Discharge Plan Admission Admit Date/Time: 10/10/24 15:53 Attending Provider: Tyron Cummings Primary Care Provider: Raghav Torres Consulting Providers: Clarisa Garcia Discharge Orders/Prescriptions Prescriptions: Continued atorvastatin 20 mg tablet 10 mg PO QHS atenolol 50 mg tablet 50 mg PO QHS 30 Days Qty: 30 Patient Comments: Take 1 tablet by mouth once daily. metformin 500 mg tablet 500 mg PO BID latanoprost 1 DROP bottle 1 drp EACH EYE QHS Patient Comments: EYE HEALTH calcium carbonate 600 MG tablet 600 mg PO QHS Patient Comments: SUPPLIMENT ropinirole 0.25 MG tablet 0.5 mg PO BID Patient Comments: RESTLESS LEGS and may take 0.5 mg as needed in the evening. Rx Instructions: takes the 2nd dose at 1700 dicyclomine 10 MG capsule 10 mg PO Q6H PRN PRN (Reason: Abdominal Pain) Patient Comments: DIARRHEA omega-3 fatty acids-fish oil 1 EACH capsule 1 ea PO MOWEFR Patient Comments: SUPPLIMENT multivitamin with folic acid 1 TABLET tablet 1 tab PO DAILY Patient Comments: SUPPLIMENT lactobacillus combination no.4 1 EACH capsule 1 ea PO DAILY Patient Comments: BOWEL HEALTH timolol 5 ML drops 1 drp EACH EYE QHS Patient Comments: EYE HEALTH Rx Instructions: 0.5% trazodone 50 mg tablet 25 mg PO QHS Patient Comments: SLEEP pregabalin 75 mg capsule 150 mg PO BID bimatoprost 1 DROP bottle 1 drp EACH EYE BID omeprazole 40 MG capsule,delayed release(DR/EC) 40 mg PO DAILY planquanial 300 mg PO QPM Patient Comments: takes 300 mg 1.5 tabs at hs. hydrochlorothiazide 25 mg tablet 25 mg PO DAILY Referrals / Follow Up: Raghav Torres MD [Primary Care Provider] - Within 2 Weeks Disposition Disposition (needs filled in before D/C Order can be placed): Home, Self Care Charges/Coding Visit Charges Inpatient E&M: 09700 Disch Hosp >30min
[2024-10-11 11:46] LABS: Hemoglobin A1c 6.1 % (3.8-5.6)
--- NOTE | 2024-10-11 12:10 | CASEMGMT ---
DAPHNIE GONZALES NOTE: Discharge order is in. RN CM to room. Pt sitting on edge of bed, @ bedside. Introduced self and role. Pt lives w/her , independent, denies any discharge needs/concerns. Pt is diabetic, has functioning glucometer w/sufficient supplies. Aware to f/u with PCP in 2 weeks. Elidia BSN DAPHNIE CM
== END 2024-10-11 11:00 | disposition home or self-care (01) ==
LOC: ED 16:00 → PCU 17:02
PROVIDERS: Admitting Provider Internal Medicine; Emergency Provider Emergency Medicine; PCP Internal Medicine; Visit Provider Internal Medicine
DX: R07.89 Other chest pain (principal); M06.9 Rheumatoid arthritis, unspecified; E11.40 Type 2 diabetes mellitus with diabetic neuropathy, unspecified; I10 Essential (primary) hypertension; K21.9 Gastro-esophageal reflux disease without esophagitis; Z79.84 Long term (current) use of oral hypoglycemic drugs; E78.00 Pure hypercholesterolemia, unspecified; M79.602 Pain in left arm; M79.7 Fibromyalgia; Z79.899 Other long term (current) drug therapy; G25.81 Restless legs syndrome; G47.00 Insomnia, unspecified; K58.9 Irritable bowel syndrome, unspecified; J32.9 Chronic sinusitis, unspecified

== ENCOUNTER 2024-10-15 05:43 | Day surgery (SDC) | payer MEDICARE, SELFPAY ==
--- NOTE | 2024-10-12 15:46 | PAT.ANESEVAL ---
Pre-Assessment Diagnosis/Proposed Procedure Planned Operative Procedure(s): COLONOSCOPY Anesthesia History Anesthesia History - strong nitric operator: Anesthesia History - strong nitric operator Hx Hospitalization Yes: 10/10/2023 CHEST PAIN, 10/12/24 08:34 TESTING RULLED OUT CARDIAC Any Problems With Anesthesia No 10/12/24 08:34 Cholinesterase deficiency No 10/12/24 08:34 You/Your Family Experience No 10/12/24 08:34 fever (hyperthermia) with Relationship Recent Exposure to Contagious No 11/14/19 08:44 Disease Does patient have nerve No 10/12/24 08:34 stimulator Patient instructed to have device shut off --Does patient have Pacemaker or ICD? When Was Last Pacemaker Check QUESTION #4 FULL TEXT: You/Your Family Experience fever (hyperthermia) with Anesthesia Last Oral Intake Last Oral intake: Last Oral Intake NPO since Meds taken in AM with sips of water? Meds patient instructed to take am of surgery PONV PONV - strong nitric operator: PONV - strong nitric operator Female Yes 10/12/24 08:34 HX of Motion Sickness No 10/12/24 08:34 HX of N/V After Surgery No 10/12/24 08:34 Non-Smoker Yes 10/12/24 08:34 Duration of Surgery greater No 10/12/24 08:34 than 60 minutes Number of Risk Factors 2 10/12/24 08:34 PONV Score Moderate Risk 10/12/24 08:34 Height & Weight Height & Weight: Anesthesia: Height & Weight Height 5 ft 6 in 09/06/24 10:48 Respiratory Assessment Respiratory Assessment - strong nitric operator: Respiratory Tract Infection Hx - strong nitric operator Hx Respiratory Tract Infection Yes: CHRONIC INFECTION/ 10/12/24 08:34 SEEING ENT STOP Sleep Apnea STOP Sleep Apnea - strong nitric operator: STOP Sleep Apnea - strong nitric operator Hx Hypertension Yes: states controlled with 10/12/24 08:34 med Hx Sleep Apnea No 10/12/24 08:34 CPAP No 10/12/24 08:34 BIPAP No 10/12/24 08:34 Do you snore loudly (louder No 10/12/24 08:34 than talking or can be heard Do you often feel tired/ No 10/12/24 08:34 fatigued/ sleepy during daytime? Has anyone observed you stop No 10/12/24 08:34 breathing during sleep? STOP Results Negative 10/12/24 08:34 QUESTION #5 FULL TEXT : Do you snore loudly (louder than talking or can be heard through closed doors)? 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 Specify any problems Hx of Preganancy in last 3 No 10/12/24 08:34 Months Nurse Filling Out Transfusion MGRIFFITH 10/12/24 08:34 & Questions: Date: 10/12/24 10/12/24 08:34 Time: 08:38 10/12/24 08:34 Patient unable to answer at this time (ie. confused, unrespo /Reproduction History /Reproductive History - strong nitric operator: /Reproductive Hx- strong nitric operator Hx Now Gestational Age (in weeks): EDC: Hx Hx Para Hx Section SAB PFSH Medical History (Updated 10/12/24 @ 08:46 by Violette Beckman) Wears hearing aid Wears glasses Low iron History of IBS Gastric reflux Shortness of breath on exertion Chronic cough Cardiology follow-up encounter History of echocardiogram History of stress test Anxiety Diabetes Kidney stones Rheumatoid arthritis Non-smoker Hypertension High fecal calprotectin Insect bite Essential (primary) hypertension Hydroureteronephrosis DDD (degenerative disc disease), lumbar Segmental and somatic dysfunction of pelvic region Segmental and somatic dysfunction of lumbar region Abnormal electrocardiogram Hypertriglyceridemia Seronegative rheumatoid arthritis Fibromyalgia Senile osteoporosis Left sided sciatica RLS (restless legs syndrome) GERD (gastroesophageal reflux disease) IBS (irritable bowel syndrome) Hyperlipidemia Glaucoma Home Medications ?Medication ?Instructions ?Recorded ?Last Taken ?Type calcium carbonate 600 mg PO QHS replacement 11/04/14 11/12/19 History dicyclomine 10 mg capsule 10 mg PO Q6H PRN PRN Abdominal Pain 11/04/14 Unknown History lactobacillus combination no.4 3 1 ea PO DAILY probiotic 11/04/14 11/13/19 History billion cell capsule latanoprost 0.005 % eye drops 1 drp EACH EYE QHS 11/04/14 11/12/19 History multivitamin with folic acid 400 1 tab PO DAILY replacement 11/04/14 11/13/19 History mcg tablet omega-3 fatty acids-fish oil 340 1 ea PO MOWEFR replacement 11/04/14 11/12/19 History mg-1,000 mg capsule ropinirole 0.25 mg tablet 0.5 mg PO BID restless legs 11/04/14 11/12/19 History timolol 0.5 % eye drops 1 drp EACH EYE QHS 11/04/14 11/12/19 History atorvastatin 20 mg tablet 10 mg PO QHS cholesterol 10/25/17 11/12/19 History atenolol 50 mg tablet 50 mg PO QHS blood pressure 30 12/27/17 11/12/19 History days ##30 bimatoprost 0.01 % eye drops 1 drp EACH EYE BID glaucoma 11/14/19 Unknown History omeprazole 40 mg capsule,delayed 40 mg PO DAILY gerd 11/14/19 Unknown History release metformin 500 mg tablet 500 mg PO BID 09/06/24 Unknown History pregabalin 75 mg capsule 150 mg PO BID pain 09/06/24 Unknown History trazodone 50 mg tablet 25 mg PO QHS sleep 09/06/24 Unknown History hydrochlorothiazide 25 mg tablet 25 mg PO DAILY 10/10/24 Unknown History planquanial 300 mg PO QPM 10/10/24 Unknown History Allergy/AdvReac Type Severity Reaction Status Date / Time paroxetine Allergy Other Verified 10/12/24 08:27 sulfamethoxazole (From Allergy Other Verified 10/12/24 08:27 ) trimethoprim (From ) Allergy Unknown Verified 10/12/24 08:27 Family History Mother Heart disease Diabetes Brother Diabetes Surgical History (Updated 10/12/24 @ 08:34 by Violette Beckman) History of colonoscopy Hx of lumbar discectomy History of bunionectomy of both great toes History of bladder suspension procedure History of hysterectomy Social History (Updated 10/10/24 @ 16:[address] Clarisa Garcia, DO) household members: spouse housing: house Smoking Status: Never smoker alcohol intake: never substance use type: does not use caffeine: Yes Type: tea Number of servings: 2 what type of physical activity do you participate in: none seatbelt use: always do you feel safe at home: Yes Audit: Pertinent Findings Pertinent Findings EKG Perinent findings: October 11, 2024. Normal sinus rhythm. Minimal LVH. Stress test pertinent findings: October 11, 2024. Ejection fraction 72%. No ischemic changes. Echo (EF%) pertinent findings: July 28, 2020. Ejection fraction 60%. No aortic valve stenosis seen Pulmonary function results/spirometer pertinent findings: Chest x-ray. October 10, 2024. No acute abnormalities are seen. Recommendation Anesthesia Recommendation Anesthesia recommendation: OPTIMIZED for anesthesia
[2024-10-15] VITALS (8 sets, daily range): BP systolic 102–131; BP diastolic 53–74; PULSE 58–70; RESP 12–16; TEMP 36.1–36.4; O2SAT 95–98; BMI 24.4
--- NOTE | 2024-10-15 | IMM_PTH ---
PATIENT: PIERRE MELENDEZ LOC: EN U#:[id number] AGE/SX: 84/F ROOM: RE10/15/[address]: Dr. Tommie Eduardo DO : 1940 BED: DIS: 10/15/2024 SPEC #: [id number] RECD: 10/16/24 13:32 STATUS: EULOGIO REQ #: [id number] MILO: 10/15/24 00:[address]: Tommie Eduardo DEPT: IMMUNOHISTOCHEMISTRY RECD BY: Hussein Fernandez ENTERED: 10/16/24 13:32 SP TYPE: IMMUNO OT DR: Dr. Raghav Torres MD Tissues: B - Colon, NOS Procedures: CD3 (initial) PHYSICIAN & INSTITUTION [place] [id number] SPECIMEN INFORMATION: Tissue Source: B- Random colon biopsy Clinical Info: Diarrhea Specimen Number: [id number] CPT code: 11209 METHODOLOGY: Deparaffinized sections of prefer/formalin-fixed tissue or PAP/DQ stained slides are incubated with monoclonal/polyclonal antibodies/oligonucleotide probes. Localization is made via biotin free immunoperoxidase method. Appropriate controls are performed and reacted as expected. Results on target cell population are indicated in the following table: RESULTS: ANTIBODY / CLONE RESULT Block B 1 CD3 (PS1) positive with slight focal increase in intraepithelial lymphocytes These tests were developed and their performance characteristics determined by [facility]. They may not have been cleared or approved by the U.S. Food and Drug Administration. The FDA has determined that such clearance or approval is not necessary. The above immunohistochemical/dualISH markers are ordered and reviewed by the Pathologist. INTERPRETATION: B. 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 Case has been reviewed in consultation with Dr. Ramirez who concurs with the above diagnosis. IDC:[email or web address] 10/17/2024
--- NOTE | 2024-10-15 06:27 | PRE.ANES_ITS ---
ASA Classification* ASA Classification ASA Classification: 2 Assessment & Plan Anesthesia* Anesthesia Assessment Anesthesia Assessment: Discussed sedation and/or anesthesia options, risks, benefits, and alternatives with patient/parents/legal guardian/POA. Questions invited. The patient/parents/legal guardian/POA seems to understand and agrees to proceed with anesthesia plan. Reviewed the physical assessment, medical history, allergy history and patient home medications list prior to surgery/procedure/anesthetic and documented any changes. Performed airway and anesthesia risk assessments. Anesthesia Type Anesthesia Type: MAC History Source History Obtained from:: Patient and Chart Anesthesia Focused Assessment* Temperature: 97.0 F Pulse Rate: 70 Blood Pressure: 131/74 Respiratory Rate: 16 Pulse Ox: 98 Oxygen Delivery Method: Room Air Airway Assessment Mouth opens: >3 cm Mallampati Score: III Teeth Condition: Intact Neck Range of motion (ROM): Full ROM Focused Labs Anesthesia Preop lab: CBC WBC 8.7 K/mm3 (4.4-11.0) 10/11/24 05:30 RBC 4.15 M/mm3 (4.2-5.4) L 10/11/24 05:30 Hgb 11.9 g/dL (12.0-15.0) L 10/11/24 05:30 Hct 37.2 % (37-47) 10/11/24 05:30 Plt Count 164 K/mm3 (150-450) 10/11/24 05:30 CHEMISTRY Potassium 3.6 mmol/L (3.5-5.1) 10/11/24 05:30 Sodium 140 mmol/L (136-145) 10/11/24 05:30 Magnesium 2.1 mg/dL (1.6-2.6) 10/11/24 05:30 Phosphorus 3.7 mg/dL (2.5-4.9) 10/11/24 05:30 BUN 21 mg/dL (7-18) H 10/11/24 05:30 Creatinine 0.65 mg/dL (0.55-1.02) 10/11/24 05:30 Glucose 113 mg/dL (74-106) H 10/11/24 05:30 POC Glucose 95 mg/dL (74-106) 10/11/24 10:55 COAG PT 12.7 SECONDS (11.7-14.9) 11/13/19 18:42 Pre-Assessment Diagnosis/Proposed Procedure Planned Operative Procedure(s): COLONOSCOPY Anesthesia History 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 When Was Last Pacemaker Check QUESTION #4 FULL TEXT: You/Your Family Experience fever (hyperthermia) with Anesthesia Last Oral Intake Last Oral intake: Last Oral Intake NPO since 03:00 10/15/24 06:07 Meds taken in AM with sips of No 10/15/24 06:07 water? Meds patient instructed to take am of surgery Any additional information?: Yes NPO since: 03:00 (Patient finished prep at 3 AM.) PONV PONV - athletic director: PONV - athletic director Female Yes 10/12/24 08:34 HX of Motion Sickness No 10/12/24 08:34 HX of N/V After Surgery No 10/12/24 08:34 Non-Smoker Yes 10/12/24 08:34 Duration of Surgery greater No 10/12/24 08:34 than 60 minutes Number of Risk Factors 2 10/12/24 08:34 PONV Score Moderate Risk 10/12/24 08:34 Height & Weight Height & Weight: Anesthesia: Height & Weight Height 5 ft 4 in 10/15/24 06:07 Weight: 64.592 kg 10/15/24 06:07 Body Mass Index (BMI) 24.4 10/15/24 06:07 Respiratory Assessment Respiratory Assessment - athletic director: Respiratory Tract Infection Hx - athletic director Hx Respiratory Tract Infection Yes: CHRONIC INFECTION/ 10/12/24 08:34 SEEING ENT Any additional information?: Yes Hx Respiratory Tract Infection: No (Patient has chronic sinus infection. Lungs are clear) STOP Sleep Apnea STOP Sleep Apnea - athletic director: STOP Sleep Apnea - athletic director Hx Hypertension Yes: states controlled with 10/12/24 08:34 med Hx Sleep Apnea No 10/12/24 08:34 CPAP No 10/12/24 08:34 BIPAP No 10/12/24 08:34 Do you snore loudly (louder No 10/12/24 08:34 than talking or can be heard Do you often feel tired/ No 10/12/24 08:34 fatigued/ sleepy during daytime? Has anyone observed you stop No 10/12/24 08:34 breathing during sleep? STOP Results Negative 10/12/24 08:34 QUESTION #5 FULL TEXT : Do you snore loudly (louder than talking or can be heard through closed doors)? 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 Specify any problems Hx of Preganancy in last 3 No 10/12/24 08:34 Months Nurse Filling Out Transfusion MGRIFFITH 10/12/24 08:34 & Questions: Date: 10/12/24 10/12/24 08:34 Time: 08:38 10/12/24 08:34 Patient unable to answer at this time (ie. confused, unrespo /Reproduction History /Reproductive History - athletic director: /Reproductive Hx- athletic director Hx Now Gestational Age (in weeks): EDC: Hx Hx Para Hx Section SAB PFSH Medical History Wears hearing aid Wears glasses Low iron History of IBS Gastric reflux Shortness of breath on exertion Chronic cough Cardiology follow-up encounter History of echocardiogram History of stress test Anxiety Diabetes Kidney stones Rheumatoid arthritis Non-smoker Hypertension High fecal calprotectin Insect bite Essential (primary) hypertension Hydroureteronephrosis DDD (degenerative disc disease), lumbar Segmental and somatic dysfunction of pelvic region Segmental and somatic dysfunction of lumbar region Abnormal electrocardiogram Hypertriglyceridemia Seronegative rheumatoid arthritis Fibromyalgia Senile osteoporosis Left sided sciatica RLS (restless legs syndrome) GERD (gastroesophageal reflux disease) IBS (irritable bowel syndrome) Hyperlipidemia Glaucoma Home Medications ?Medication ?Instructions ?Recorded ?Last Taken ?Type calcium carbonate 600 mg PO QHS replacement 11/04/14 10/12/24 History dicyclomine 10 mg capsule 10 mg PO Q6H PRN PRN Abdominal Pain 11/04/14 Unknown History lactobacillus combination no.4 3 1 ea PO DAILY probiotic 11/04/14 10/11/24 History billion cell capsule latanoprost 0.005 % eye drops 1 drp EACH EYE QHS 11/04/14 10/15/24 History multivitamin with folic acid 400 1 tab PO DAILY replacement 11/04/14 10/12/24 History mcg tablet omega-3 fatty acids-fish oil 340 1 ea PO MOWEFR replacement 11/04/14 10/12/24 History mg-1,000 mg capsule ropinirole 0.25 mg tablet 0.5 mg PO BID restless legs 11/04/14 10/14/24 History timolol 0.5 % eye drops 1 drp EACH EYE QHS 11/04/14 10/14/24 History atorvastatin 20 mg tablet 10 mg PO QHS cholesterol 10/25/17 10/14/24 History atenolol 50 mg tablet 50 mg PO QHS blood pressure 30 12/27/17 10/14/24 History days ##30 bimatoprost 0.01 % eye drops 1 drp EACH EYE BID glaucoma 11/14/19 10/15/24 History omeprazole 40 mg capsule,delayed 40 mg PO DAILY gerd 11/14/19 10/14/24 History release metformin 500 mg tablet 500 mg PO BID 09/06/24 10/14/24 History pregabalin 75 mg capsule 150 mg PO BID pain 09/06/24 10/14/24 History trazodone 50 mg tablet 25 mg PO QHS sleep 09/06/24 10/14/24 History hydrochlorothiazide 25 mg tablet 25 mg PO DAILY 10/10/24 10/14/24 History planquanial 300 mg PO QPM 10/10/24 10/14/24 History Allergy/AdvReac Type Severity Reaction Status Date / Time paroxetine Allergy Other Verified 10/15/24 06:03 sulfamethoxazole (From Allergy Other Verified 10/15/24 06:03 Septra) trimethoprim (From ) Allergy Unknown Verified 10/15/24 06:03 Family History Mother Heart disease Diabetes Brother Diabetes Surgical History History of colonoscopy Hx of lumbar discectomy History of bunionectomy of both great toes History of bladder suspension procedure History of hysterectomy Social History household members: spouse housing: house Smoking Status: Never smoker alcohol intake: never substance use type: does not use caffeine: Yes Type: tea Number of servings: 2 what type of physical activity do you participate in: none seatbelt use: always do you feel safe at home: Yes Review of Systems (Anesthesia) ROS Narrative System reviewed and no additional complaints, except as documented.
--- NOTE | 2024-10-15 06:30 | COLBX_PTH ---
PATIENT: PIERRE MELENEDZ LOC: EN U#:[id number] AGE/SX: 84/F ROOM: RE10/15/[address]: Dr. Tommie Eduardo DO : 1940 BED: DIS: 10/15/2024 SPEC #: [id number] RECD: 10/15/24 12:56 STATUS: EULOGIO REJj #: [id number] MILO: 10/15/24 06:[address]: Tommie Eduardo DEPT: SURGICAL PATHOLOGY RECD BY: Chen Borges ENTERED: 10/15/24 13:33 SP TYPE: COLON BX OTHR DR: Dr. Raghav Torres MD Tissues: A - Ileum, NOS B - COLON BIOPSY Procedures: Surgery Specimen Level IV HEADER OPERATION: Colonoscopy, biopsy PRE-OP DIAGNOSIS: Diarrhea TISSUE SUBMITTED: A- Terminal ileum biopsy, B- Random colon biopsy MICROSCOPIC DIAGNOSIS A. Terminal ileum, biopsy: Ileal mucosa with no significant pathologic findings. B. Colon, random biopsy: Fragments of colonic mucosa with focal hyperplastic glandular change and focal chronic inflammation with areas suggestive of possible early microscopic colitis. See comment. 10/16/2024 COMMENT B. The biopsy, random from the colon, show focally mildly increased chronic inflammation in the lamina propria and focally mildly increased intraepithelial lymphocytes suggestive of possible early microscopic colitis. Clinical correlation is necessary. Immunohistochemistry ([id number]) supports the above diagnosis. Case has been reviewed in consultation with Dr. Ramirez who concurs with the above diagnosis. IDC:SJ MICROSCOPIC DESCRIPTION Slides are reviewed. GROSS DESCRIPTION A. Received in fixative is one container labeled with the patient's name and designated Terminal ileum biopsy. The specimen consists of one irregular fragment of light gomez soft tissue that measures 0.5 x 0.4 x 0.1 cm. The specimen is totally submitted in one cassette. B. Received in fixative is one container labeled with the patient's name and designated Random colon biopsy. The specimen consists of multiple irregular fragments of light gomez soft tissue that in aggregate measure 1.5 x 0.4 x 0.2 cm. The specimen is totally submitted in one cassette. 10/15/2024 TC:3 CPT:13753
--- NOTE | 2024-10-15 06:47 | HP.PCM_ITS ---
HPI - General General Date of Admission: 10/15/24 Date of Service: 10/15/24 Chief Complaint: diarrhea HPI Narrative PIERRE MELENDEZ, is a 84 F who [id number] female presents for consultation with complaints of diarrhea which began mid July. Fecal calprotectin elevated to 1100. Celiac labs, occult stool, TSH, C. Diff, GIPCR, Giardia were recently unremarkable. She reports taking Questran for 2-3 days and discontinued due to causing constipation for 1 week. - diarrhea - sudden onset - watery stools - frequent, urgent - she reports she has had a chronic sinus infection for the past year - she reports taking at least 4 rounds of ATB - denies any ATB in the past 1-2 months - denies any bleeding - weight loss of 10lbs in the past month - denies any N/V - denies any fevers or night sweats - she c/o fatigue - although not new - when I expressed to her that it appears she does not feel well (pale skin, flat affect) she states everyone says that - FiberCon 2 tablets every morning and 1 at HS - she reports she has resumed a normal diet HGB 12, 13% saturation - 08/13/2024 - reports starting OTC Fe BID 2 weeks ago - occult negative - rare SOB - denies easy bruising - she is not a vegetarian and eats red meat - denies any epistaxis or blood donation - denies any anticoagulants - denies any NSAIDS - denies any HB - denies any N/V COLON: reports these were always normal >10 years ago - she reports the colonoscopy caused an IBS flare and really does not want to have another one REPLACED BY [facility] Medical History Wears hearing aid Wears glasses Low iron History of IBS Gastric reflux Shortness of breath on exertion Chronic cough Cardiology follow-up encounter History of echocardiogram History of stress test Anxiety Diabetes Kidney stones Rheumatoid arthritis Non-smoker Hypertension High fecal calprotectin Insect bite Essential (primary) hypertension Hydroureteronephrosis DDD (degenerative disc disease), lumbar Segmental and somatic dysfunction of pelvic region Segmental and somatic dysfunction of lumbar region Abnormal electrocardiogram Hypertriglyceridemia Seronegative rheumatoid arthritis Fibromyalgia Senile osteoporosis Left sided sciatica RLS (restless legs syndrome) GERD (gastroesophageal reflux disease) IBS (irritable bowel syndrome) Hyperlipidemia Glaucoma Home Medications ?Medication ?Instructions ?Recorded ?Last Taken ?Type calcium carbonate 600 mg PO QHS replacement 11/04/14 10/12/24 History dicyclomine 10 mg capsule 10 mg PO Q6H PRN PRN Abdominal Pain 11/04/14 Unknown History lactobacillus combination no.4 3 1 ea PO DAILY probiotic 11/04/14 10/11/24 History billion cell capsule latanoprost 0.005 % eye drops 1 drp EACH EYE QHS 11/04/14 10/15/24 History multivitamin with folic acid 400 1 tab PO DAILY replacement 11/04/14 10/12/24 History mcg tablet omega-3 fatty acids-fish oil 340 1 ea PO MOWEFR replacement 11/04/14 10/12/24 History mg-1,000 mg capsule ropinirole 0.25 mg tablet 0.5 mg PO BID restless legs 11/04/14 10/14/24 History timolol 0.5 % eye drops 1 drp EACH EYE QHS 11/04/14 10/14/24 History atorvastatin 20 mg tablet 10 mg PO QHS cholesterol 10/25/17 10/14/24 History atenolol 50 mg tablet 50 mg PO QHS blood pressure 30 12/27/17 10/14/24 History days ##30 bimatoprost 0.01 % eye drops 1 drp EACH EYE BID glaucoma 11/14/19 10/15/24 History omeprazole 40 mg capsule,delayed 40 mg PO DAILY gerd 11/14/19 10/14/24 History release metformin 500 mg tablet 500 mg PO BID 09/06/24 10/14/24 History pregabalin 75 mg capsule 150 mg PO BID pain 09/06/24 10/14/24 History trazodone 50 mg tablet 25 mg PO QHS sleep 09/06/24 10/14/24 History hydrochlorothiazide 25 mg tablet 25 mg PO DAILY 10/10/24 10/14/24 History planquanial 300 mg PO QPM 10/10/24 10/14/24 History Allergy/AdvReac Type Severity Reaction Status Date / Time paroxetine Allergy Other Verified 10/15/24 06:03 sulfamethoxazole (From Allergy Other Verified 10/15/24 06:03 ) trimethoprim (From ) Allergy Unknown Verified 10/15/24 06:03 Family History Mother Heart disease Diabetes Brother Diabetes Surgical History History of colonoscopy Hx of lumbar discectomy History of bunionectomy of both great toes History of bladder suspension procedure History of hysterectomy Social History household members: spouse housing: house Smoking Status: Never smoker alcohol intake: never substance use type: does not use caffeine: Yes Type: tea Number of servings: 2 what type of physical activity do you participate in: none seatbelt use: always do you feel safe at home: Yes ROS Constitutional Constitutional: Denies fatigue, fever(s), poor appetite, weight gain or weight loss Gastrointestinal Gastrointestinal: Denies belching, bloating, change in bowel habits, change in stool character, chewing difficulty, coffee ground emesis, constipation, cramping, diarrhea, dyspepsia, dysphagia, early satiety, excessive flatus, fecal incontinence, heartburn, hematemesis, hematochezia, hemorrhoids, loose stools, melena, nausea, odynophagia, rectal bleeding, tenesmus, vomiting or weight leah nges Vital Signs Vital Signs Vital Signs: 10/15/24 06:06 10/15/24 06:07 10/15/24 06:34 Temperature 97.0 F L 97.0 F L Temperature Source Temporal Pulse Rate 70 70 Respiratory Rate 16 16 Respiratory Pattern Normal Blood Pressure 131/74 H 131/74 H Blood Pressure Mean 93 Blood Pressure Source Monitor Blood Pressure Position Semi-Fowlers Blood Pressure Location Left Arm Pulse Ox 98 98 Oxygen Delivery Method Room Air Room Air Weight Weight: 142 lb 6.4 oz Body Mass Index (BMI) 24.4 Physical Exam Const alert, oriented x3, no apparent distress and healthy appearing General Appearance: cooperative GI normal to inspection, nondistended, normoactive bowel sounds, soft to palpation, non-tender and non-distended Percussion: normal to percussion Rectal Exam: deferred Assessment & Plan Assessment/Plan (1) Diarrhea: QUALIFIERS: Diarrhea type: unspecified type Qualified Code(s): R19.7 - Diarrhea, unspecified PLAN: 84y/o female presents for consultation with complaints of diarrhea which began mid July. Fecal calprotectin elevated to 1100. Celiac labs, occult stool, TSH, C. Diff, GIPCR, Giardia were recently unremarkable. She reports taking Questran for 2-3 days and discontinued due to causing constipation for 1 week. - diarrhea - sudden onset - watery stools - frequent, urgent - she reports she has had a chronic sinus infection for the past year - she reports taking at least 4 rounds of ATB - denies any ATB in the past 1-2 months - denies any bleeding - weight loss of 10lbs in the past month - denies any N/V - denies any fevers or night sweats - she c/o fatigue - although not new - when I expressed to her that it appears she does not feel well (pale skin, flat affect) she states everyone says that - FiberCon 2 tablets every morning and 1 at HS - she reports she has resumed a normal diet HGB 12, 13% saturation - 08/13/2024 - reports starting OTC Fe BID 2 weeks ago - occult negative - rare SOB - denies easy bruising - she is not a vegetarian and eats red meat - denies any epistaxis or blood donation - denies any anticoagulants - denies any NSAIDS - denies any HB - denies any N/V COLON: reports these were always normal >10 years ago - she reports the colonoscopy caused an IBS flare and really does not want to have another one ROS Const Constitutional: Positive for fatigue, headache(s) and weight change; No fever(s) ENT ENT: Positive for headache(s); No difficulty swallowing Gastro GI: Positive for abdominal pain, change in bowel habits, constipation and diarrhea; No belching, bloating, change in stool character, coffee ground emesis, cramping, heartburn, difficulty swallowing, feeling full early, excessive flatus, incontinent of stools, Vomiting blood/hematemesis, Blood in stool, loose stools, Black,tarry stools, nausea/dyspepsia, pain with swallowing, vomiting or other Musc Musculoskeletal: Positive for abnormal gait, joint pain, back pain, joint swelling, muscle cramps, muscle weakness, numbness, stiffness, tingling, Arthritis and restless legs Skin Skin: No yellowing of the eye or itchy eyes Neuro Neurology: Positive for abnormal gait, headache(s), numbness, tingling and restless legs Psych Psychiatric: No anxiety and No depression Endo Endocrine: Positive for fatigue and weight change Aller/Imm Allergy/Immunologic: No itchy eyes Kam/Lymp Hematologic/Lymphatic: No easy bleeding or easy bruising Exam Const General: no acute distress and well developed Nutritional Appearance: average body habitus and well nourished Orientation: alert and oriented x3 Other: pale skin tone with a flat affect, sitting in chair resting head on hand HENMT Head: normocephalic Ears: hearing grossly normal bilaterally Mouth: moist mucous membranes Teeth and gingiva: dentition normal Eyes Conjunctivae: conjunctivae normal Sclera: sclerae normal Neck Neck: normal visual inspection, full ROM and trachea midline Resp Effort & Inspection: normal respiratory effort, able to speak in complete sentences and symmetric chest movement Auscultation: Bilateral: Clear to Auscultation Cardio Palpation: normal PMI Rate: regular rate Rhythm: regular rhythm Heart Sounds: S1 normal and S2 normal GI Inspection: normal to inspection Auscultation: normal bowel sounds Palpation: soft and no hepatosplenomegaly Rectal Exam: deferred Skin General: no rashes or lesions noted and turgor normal Neuro General: patient alert and patient oriented x3 Cranial Nerves: other (CN's grossly intact, non-focal exam) Cognition: normal cognition Speech: speech normal Gait: normal gait Extrem General: normal to inspection (no edema noted) Psych Appearance: grossly normal and well kempt Affect: normal affect Attitude: cooperative Thought Process: normal Thought Content: normal Judgment: judgment good Assessment and Plan Assessment and Plan (1) Diarrhea: Status: Acute Qualifiers: Diarrhea type: unspecified type Qualified Code(s): R19.7 - Diarrhea, unspecified (2) High fecal calprotectin: Status: Acute Orders: Orders Calprotectin, Stool Today R19.5 - Other fecal abnormalities, R19.7 - Diarrhea, unspecified Plan 84y/o female presents for consultation with complaints of diarrhea which began mid July. Fecal calprotectin elevated to 1100. Celiac labs, occult stool, TSH, C. Diff, GIPCR, Giardia were recently unremarkable. She reports taking Questran for 2-3 days and discontinued due to causing constipation for 1 week. For the past 4-5 days she has been experiencing hard stools with some straining, which she states is her baseline. She is experiencing mild abdominal cramping prior to a BM the past week as well. She has increased her daily fiber supplement and reports her diet is back to normal the past few days. I will repeat a fecal calprotectin at this time and she will contact office with any change in symptoms. Plan Details Follow Up: 1 Month
--- NOTE | 2024-10-15 07:27 | OP.COLON_ITS ---
Patient Name: Eva Watson Procedure Date: 10/15/2024 5:21 AM Date of : 1940 Age: 84 Procedure: Colonoscopy Indications: Clinically significant diarrhea of unexplained origin Providers: Tommie Eduardo DO Referring MD: Raghav Torres Medicines: Monitored Anesthesia Care Patient Profile: This is an 84 year old female. Refer to note in patient chart for documentation of history and physical. Last Colonoscopy: more than 10 years ago. Complications: No immediate complications. Procedure: Pre-Anesthesia Assessment: - Prior to the procedure, a History and Physical was performed, and patient medications and allergies were reviewed. The patient is competent. The risks and benefits of the procedure and the sedation options and risks were discussed with the patient. All questions were answered and informed consent was obtained. Patient identification and proposed procedure were verified by the physician in the pre-procedure area. Mental Status Examination: alert and oriented. Airway Examination: normal oropharyngeal airway and neck mobility. Respiratory Examination: clear to auscultation. CV Examination: normal. Prophylactic Antibiotics: The patient does not require prophylactic antibiotics. Prior Anticoagulants: The patient has taken no anticoagulant or antiplatelet agents except for NSAID medication. ASA Grade Assessment: II - A patient with mild systemic disease. After reviewing the risks and benefits, the patient was deemed in satisfactory condition to undergo the procedure. The anesthesia plan was to use monitored anesthesia care (MAC). Immediately prior to administration of medications, the patient was re-assessed for adequacy to receive sedatives. The heart rate, respiratory rate, oxygen saturations, blood pressure, adequacy of pulmonary ventilation, and response to care were monitored throughout the procedure. The physical status of the patient was re-assessed after the procedure. After I obtained informed consent, the scope was passed under direct vision. Throughout the procedure, the patient's blood pressure, pulse, and oxygen saturations were monitored continuously. The colonoscope was introduced through the anus and advanced to the cecum, identified by appendiceal orifice and ileocecal valve. The colonoscopy was performed without difficulty. The patient tolerated the procedure well. The quality of the bowel preparation was fair. The terminal ileum, ileocecal valve, appendiceal orifice, and rectum were photographed. Scope In: 6:59:26 AM Scope Withdrawal Time 0 hours 10 minutes 45 seconds Scope Out: 7:18:44 AM Total Procedure Duration Time 0 hours 19 minutes 18 seconds Findings: The perianal and digital rectal examinations were normal. Stool was found in the recto-sigmoid colon, in the sigmoid colon, in the descending colon, at the splenic flexure and in the transverse colon. Lavage of the area was performed using copious amounts, resulting in incomplete clearance with fair visualization. An area of mildly congested mucosa was found in the rectum, in the recto-sigmoid colon, at the splenic flexure and in the ascending colon. Biopsies were taken with a cold forceps for histology. Verification of patient identification for the specimen was done. Estimated blood loss was minimal. The terminal ileum appeared normal. Biopsies were taken with a cold forceps for histology. Verification of patient identification for the specimen was done. Estimated blood loss was minimal. A benign-appearing, intrinsic severe stenosis measuring 3 cm (in length) x 5 mm (inner diameter) was found in the sigmoid colon and at the hepatic flexure and was traversed. Impression: - Preparation of the colon was fair. - Stool in the recto-sigmoid colon, in the sigmoid colon, in the descending colon, at the splenic flexure and in the transverse colon. - Congested mucosa in the rectum, in the recto-sigmoid colon, at the splenic flexure and in the ascending colon. Biopsied. - The examined portion of the ileum was normal. Biopsied. - Stricture in the sigmoid colon and at the hepatic flexure. Recommendation: - Discharge patient to home. - Resume previous diet. - Continue present medications. - Await pathology results. - Repeat colonoscopy for surveillance based on pathology results. Procedure Code(s): --- Professional --- 29778, Colonoscopy, flexible; with biopsy, single or multiple CPT copyright 2021 [employer]. All rights reserved. The codes documented in this report are preliminary and upon manager of manufacturing review may be revised to meet current compliance requirements. Tommie Eduardo DO 10/15/2024 7:26:08 AM This report has been signed electronically. Number of Addenda: 0 Note Initiated On: 10/15/2024 5:21 AM
--- NOTE | 2024-10-15 07:27 | OP.CCLET_ITS ---
10/15/2024 Raghav Torres [address] [place] [address] Re : Colonoscopy procedure for Eva Watson Dear Dr. Torres This procedure was performed on Tuesday, October 15, 2024. My impressions and recommendations are as follows: Impressions : - Preparation of the colon was fair. - Stool in the recto-sigmoid colon, in the sigmoid colon, in the descending colon, at the splenic flexure and in the transverse colon. - Congested mucosa in the rectum, in the recto-sigmoid colon, at the splenic flexure and in the ascending colon. Biopsied. - The examined portion of the ileum was normal. Biopsied. - Stricture in the sigmoid colon and at the hepatic flexure. Recommendations : - Discharge patient to home. - Resume previous diet. - Continue present medications. - Await pathology results. - Repeat colonoscopy for surveillance based on pathology results. My findings are described in the full procedure note, which is enclosed. If I can be of further assistance, please feel free to contact me at . Sincerely, Tommie Eduardo, 10/15/2024 7:26:08 AM This report has been signed electronically.
--- NOTE | 2024-10-15 07:28 | PCM.POST.ANE ---
Anesthesia: Postop Eval I Current Vital Signs Temperature: 97.6 F Pulse Rate: 67 Blood Pressure: 111/53 Respiratory Rate: 16 Pulse Ox: 98 Oxygen Delivery Method: Room Air Assessment Airway patent: Yes Spontaneous unlabored respirations: Yes Mental status: Asleep nausea: No Vomiting: No Anesthesia Complication: No Fluid Hydration Crystalloid volume administer (ml): 50 Total IV fluid infused: 50 Progress Note Anesthesia document: Postop Eval 1 completed: Yes
[2024-10-15 08:40] LABS: Bedside Glucose 108 mg/dL (74-106)
--- NOTE | 2024-10-15 11:25 | PCM.POSTANE2 ---
Anesthesia Postop Eval I Sum Postop Eval Completion status Anesthesia document: Postop Eval 1 completed: Yes Anesthesia Postop Eval I Summary Anesthesia Postop Eval I Summary: Anesthesia Postop Eval I: Assessment Summary Airway patent Yes 10/15/24 07:29 [email or web address] Spontaneous unlabored Yes 10/15/24 07:29 [email or web address] respirations Mental status Asleep 10/15/24 07:29 [email or web address] nausea No 10/15/24 07:29 [email or web address] Vomiting No 10/15/24 07:29 [email or web address] Anesthesia Postop Eval I: Fluid Summary Crystalloid volume administer 50 10/15/24 07:29 [email or web address] (ml) Colloids volume administered ( ml) Blood Product volume administered (ml) Total IV fluid infused 50 10/15/24 07:29 [email or web address] Anesthesia Postop Eval I: Summary Notes Anesthesia Complication No 10/15/24 07:29 [email or web address] Anesthesia Complication Comment: Post-operative progress note Anesthesia: Postop Eval II Evaluation Mental status: Awake Pain Level: 0 nausea: No Vomiting: No Complications Anesthesia Complication: No
== END 2024-10-15 08:52 | disposition home or self-care (01) ==
LOC: EN 05:43 → AC 05:44
PROVIDERS: PCP Internal Medicine; Referring Provider Internal Medicine; Visit Provider Internal Medicine Gastroenterology
PROC: 0DJD8ZZ Inspection of Lower Intestinal Tract, Via Natural or Artificial Opening Endoscopic (ICD-10-PCS; CPT 45378; principal; 2024-10-15 06:25)
DX: K63.89 Other specified diseases of intestine (principal); K56.699 Other intestinal obstruction unspecified as to partial versus complete obstruction; E11.9 Type 2 diabetes mellitus without complications; E78.5 Hyperlipidemia, unspecified; K21.9 Gastro-esophageal reflux disease without esophagitis; I10 Essential (primary) hypertension; Z79.84 Long term (current) use of oral hypoglycemic drugs
CPT/HCPCS: 45380; 82962; 88305; 88342; A4216; J2405

== ENCOUNTER → 2024-10-31 | Outpatient (CLI) | payer MEDICARE, SELFPAY ==
[2024-11-01 15:07] LABS: Endomysial Antibody IgA Negative (Negative); Immunoglobulin A 274 mg/dL (64-422); t-Transglutaminase IgA <2 U/mL (0-3)
== END | disposition home or self-care (01) ==
LOC: LAB 11:07
PROVIDERS: PCP Internal Medicine; Referring Provider Nurse Practitioner Acute Care; Visit Provider Nurse Practitioner Acute Care
DX: K52.839 Microscopic colitis, unspecified (principal)
CPT/HCPCS: 36415; 82784; 83516; 86255

== ENCOUNTER → 2024-11-01 | Outpatient (CLI) | payer MEDICARE, SELFPAY ==
[2024-11-07 01:06] LABS: Calprotectin, Stool 692 ug/g (0-120)
== END | disposition home or self-care (01) ==
LOC: LABSPEC 15:14
PROVIDERS: PCP Internal Medicine; Referring Provider Nurse Practitioner Acute Care; Visit Provider Nurse Practitioner Acute Care
DX: K52.839 Microscopic colitis, unspecified (principal)
CPT/HCPCS: 83993

== ENCOUNTER → 2025-08-06 | Outpatient (CLI) | payer MEDICARE, SELFPAY ==
--- NOTE | 2025-08-06 10:38 | BI_ITS ---
EXAM: SCRN MAMM (CAD)W/LIZZIE BILAT DATE: 08/06/2025 CLINICAL HISTORY: F, Age 85 y/o , SCREENING No family history. TECHNIQUE: Procedure Code: [id number] Modality: MG Procedure: SCRN MAMM (CAD)W/LIZZIE BILAT COMPARISON: Prior exam(s) dated July 26, 2024.. FINDINGS: TISSUE DENSITY: The breasts are heterogeneously dense, which may obscure small masses. Bilateral Breast Mammographic Findings: No significant masses, calcifications or other abnormalities are identified. Stable scattered bilateral microcalcifications. Stable fat containing bilateral axillary lymph nodes. No suspicious masses, areas of developing architectural distortion, or suspicious calcifications. There has been no significant interval change. BI/SCRN MAMM (CAD)W/LIZZIE BILAT IMPRESSION: Stable bilateral screening mammogram. OVERALL FINAL ASSESSMENT BI-RADS 2: BENIGN RECOMMENDATION: Routine annual follow-up in 1 Year Additional Recommendation none A letter with findings and recommendations will be mailed to the patient. Reading Location: [facility]
== END | disposition home or self-care (01) ==
PROVIDERS: PCP Internal Medicine; Referring Provider Nurse Practitioner; Visit Provider Nurse Practitioner
DX: Z12.31 Encounter for screening mammogram for malignant neoplasm of breast (principal)
CPT/HCPCS: 77063; 77067